=== PATIENT | male | born 1940 | race Caucasian/White ===

== ENCOUNTER 2017-01-05 19:35 | Emergency (ER) | payer MEDICARE, OTHER ==
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
[2017-01-05] MEDS ORDERED: Lidocaine 1% 20 ML MDV ONE (20:05)
[2017-01-05] MEDS ORDERED: Lidocaine 1% 20 ML MDV INJECT ONE (20:06)
[2017-01-05] MEDS ORDERED: Diphtheria,Pertussis(Acell),Tetanus Vaccine 0.5 ML SDV IM ONE (20:29)
[2017-01-05 21:19] VITALS: BP 162/72
== END 2017-01-05 20:45 | disposition home or self-care (01) ==
LOC: KA.ED 19:35
DX: S61.012A Laceration without foreign body of left thumb without damage to nail, initial encounter (principal); X08.8XXA Exposure to other specified smoke, fire and flames, initial encounter; Z79.899 Other long term (current) drug therapy; Z23 Encounter for immunization
CPT/HCPCS: 12002; 73120-LT; 90471; 90715; 99283

== ENCOUNTER 2017-04-17 11:20 | Emergency (ER) | payer MEDICARE, OTHER ==
[2017-04-17 11:41] VITALS: BP 157/58
[2017-04-17] MEDS ORDERED: Lidocaine 2% 5 ML SDV INJECT ONE (11:45)
[2017-04-17] MEDS ORDERED: Meperidine PF 50 MG/ML Syringe IM SCH (11:45)
--- NOTE | 2017-04-17 12:03 | EDM.PDOC ---
ED HPI GENERAL MEDICAL PROBLEM - General Chief Complaint: Upper Extremity Injury/Pain Stated Complaint: FINGER INJURY Time Seen by Provider: 04/17/17 11:30 Source of Information: Reports: Patient - History of Present Illness INITIAL COMMENTS - FREE TEXT/NARRATIVE: 76-year-old male right hand dominant presents emergency room with laceration injuries to the right index and long finger. Patient was working up a [employer] retractor when he got his hand pinched between the PTO shaft and hydraulic lift. He sustained lacerations approximately 4 cm on the lower aspect of the index finger and about 11/2 cm on the dorsal aspect of the index finger and also about 1-1/2 cm laceration over the volar aspect of the long finger. He denies any numbness or tingling in the fingers. He reports he is able to bend and extend the fingers without limitation or loss of motion. He has no other complaints. Onset: Today Onset Date: 04/17/17 Onset Time: 11:00 Duration: Minutes: Location: Reports: Upper Extremity, Right (right index, long fingers) Quality: Reports: Ache Severity: Moderate Improves with: Reports: Medication Worsens with: Reports: None Context: Reports: Trauma Associated Symptoms: Reports: No Other Symptoms Right Hand Pain Score (Numeric/FACES): 8 - Related Data Allergies Allergy/AdvReac Type Severity Reaction Status Date / Time No Known Allergies Allergy Verified 04/17/17 13:25 Home Meds: Home Meds Metoprolol Succinate [Toprol XL] 25 mg PO DAILY 01/05/17 [History] Simvastatin [Zocor] 10 mg PO BEDTIME 01/05/17 [History] Past Medical History Cardiovascular History: Reports: High Cholesterol, Hypertension Social & Family History - Family History Family Medical History: Noncontributory - Tobacco Use Smoking Status *Q: Unknown Ever Smoked Review of Systems - Review of Systems Review Of Systems: ROS reveals no pertinent complaints other than HPI. Musculoskeletal: Reports: Hand Pain Skin: Reports: Other (laceration right index, long fingers) Neurological: Denies: Numbness, Paresthesia ED EXAM, GENERAL - Physical Exam Exam: See Below Exam Limited By: No Limitations General Appearance: Alert, WD/WN, No Apparent Distress Extremities: Other (approximately 5 cm laceration over the volar aspect of the right index finger and a 1-1/2 cm laceration over the dorsal aspect of the index of finger. The tendon of both the flexors and sixth extensor tendons are intact. He has good sensation of the distal tip of the finger. There is no trauma to the DIP PIP or metacarpal joint. Right long finger also shows volar laceration) Neurological: Alert, Oriented, No Motor/Sensory Deficits ED TRAUMA EXTREMITY PROCEDURES - Laceration/Wound Repair Right Finger Lac/Wound Length In cm: 8 Appearance: Subcutaneous, Irregular, Moderately Contaminated Distal NVT: Neuro & Vascular Intact, No Tendon Injury Anesthetic Type: Digital Local Anesthesia - Lidocaine (Xylocaine): 2% Plain Local Anesthetic Volume: Other (20cc) Saline Irrigation (cc's): 40 Exploration/Debridement/Repair: Wound Explored, Minimal Debridement, Multiple Flaps Aligned Closed With: Sutures Suture Size: 4-0 # of Sutures: 11 Suture Type: Nylon Course - Vital Signs Last Recorded V/S: Last Vital Signs Temp 98.2 F 04/17/17 11:38 Pulse 70 04/17/17 11:38 Resp 20 04/17/17 11:38 BP 157/58 H 04/17/17 11:38 Pulse Ox 94 L 04/17/17 11:38 - Orders/Labs/Meds Orders: Active Orders 24 hr Category Date Time Status Hand Comp Min 3V Rt [CR] Stat Exams 04/17/17 11:36 Ordered Meperidine [Demerol] Med 04/17/17 11:45 Active 50 mg IM ONETIME Medication Orders Meperidine HCl (Demerol) 50 mg IM ONETIME BUCK Last Admin: 04/17/17 11:42 Dose: 50 mg Meds: Medications Generic Name Dose Route Start Last Admin Trade Name Freq PRN Reason Stop Dose Admin Meperidine HCl 50 mg 04/17/17 11:45 04/17/17 11:42 Demerol IM 50 mg ONETIME BUCK Administration Discontinued Medications Generic Name Dose Route Start Last Admin Trade Name Freq PRN Reason Stop Dose Admin Lidocaine 20 ml 04/17/17 11:45 04/17/17 11:45 Xylocaine-Mpf 2% INJECT 04/17/17 11:46 20 ml ONETIME ONE Administration - Radiology Interpretation Free Text/Narrative:: right hand 3 views Impression: Negative for fracture Departure - Departure Time of Disposition: 13:30 Disposition: Home, Self-Care 01 Condition: Good Clinical Impression: Laceration of right middle finger Qualifiers: Encounter type: initial encounter Damage to nail status: without damage Foreign body presence: without foreign body Qualified Code(s): S61.212A - Laceration without foreign body of right middle finger without damage to nail, initial encounter - Discharge Information Instructions: Laceration Care, Adult, Crush Injury, Fingers or Toes, Easy-to- Read Referrals: Tye Peoples PA-C [Primary Care Provider] - Forms: ED Department Discharge Additional Instructions: 1, Dressing change on Thursday 2. Suture removal in 12-14 days. 3. No lifting with right hand. 4. Keep dressings clean. 5. Duricef 500mg twice a day for 5 days. 6. Any concerns for possible infection such as fever, increased pain in the hand or fingers, redness, or drainage coming from the incisions you should return to the clinic for further evaluation. - My Orders Last 24 Hours: My Active Orders 04/17/17 11:36 Hand Comp Min 3V Rt [CR] Stat 04/17/17 11:45 Meperidine [Demerol] 50 mg IM ONETIME - Assessment/Plan Last 24 Hours: My Active Orders 04/17/17 11:36 Hand Comp Min 3V Rt [CR] Stat 04/17/17 11:45 Meperidine [Demerol] 50 mg IM ONETIME Assessment:: Lacerations to the right index and long finger without involvement of the nail bed Plan: 1, Dressing change on Thursday 2. Suture removal in 12-14 days. 3. No lifting with right hand. 4. Keep dressings clean. 5. Duricef 500mg twice a day for 5 days. 6. Any concerns for possible infection such as fever, increased pain in the hand or fingers, redness, or drainage coming from the incisions you should return to the clinic for further evaluation.
== END 2017-04-17 13:30 | disposition home or self-care (01) ==
LOC: KA.ED 11:20
DX: S61.212A Laceration without foreign body of right middle finger without damage to nail, initial encounter (principal); S61.210A Laceration without foreign body of right index finger without damage to nail, initial encounter; I10 Essential (primary) hypertension; E78.00 Pure hypercholesterolemia, unspecified; Z79.899 Other long term (current) drug therapy; W23.0XXA Caught, crushed, jammed, or pinched between moving objects, initial encounter
CPT/HCPCS: 12004; 73130; 96372; 99283; J2175; 12044; 99282

== ENCOUNTER 2017-05-02 09:37 | Emergency (ER) | payer MEDICARE, OTHER ==
[2017-05-02 09:58] VITALS: BP 142/62
[2017-05-02 11:16] LABS: CHLORIDE,CL 106 mmol/L (98-115); SODIUM,NA 140 mmol/L (136-145)
--- NOTE | 2017-05-02 11:42 | EDM.PDOC ---
ED HPI GENERAL MEDICAL PROBLEM - General Chief Complaint: Genitourinary Problem Stated Complaint: BLADDER PAINS Time Seen by Provider: 05/02/17 10:00 Source of Information: Reports: Patient History Limitations: Reports: No Limitations - History of Present Illness INITIAL COMMENTS - FREE TEXT/NARRATIVE: Patient presents with burning with urination and achy pain in the groin and perineum for two days. He sometimes has difficulty voiding; worse recently but somewhat for the past 6 months. No fever, abdominal or flank pain. No concern for STDs since he has not been sexually active for a long time. - Related Data Allergies Allergy/AdvReac Type Severity Reaction Status Date / Time No Known Allergies Allergy Verified 05/02/17 09:54 Home Meds: Home Meds Metoprolol Succinate [Toprol XL] 25 mg PO DAILY 01/05/17 [History] Simvastatin [Zocor] 10 mg PO BEDTIME 01/05/17 [History] Finasteride 5 mg PO BEDTIME 05/02/17 [History] Past Medical History Cardiovascular History: Reports: High Cholesterol, Hypertension - Past Surgical History Cardiovascular Surgical History: Reports: None Social & Family History - Family History Family Medical History: Noncontributory - Tobacco Use Smoking Status *Q: Former Smoker Used Tobacco, but Quit: Yes Month Tobacco Last Used: 20 - Caffeine Use Caffeine Use: Reports: Coffee, Soda, Tea - Recreational Drug Use Recreational Drug Use: No ED ROS GENERAL - Review of Systems Review Of Systems: See Below Constitutional: Denies: Fever HEENT: Reports: No Symptoms Respiratory: Denies: Shortness of Breath, Cough Cardiovascular: Denies: Chest Pain GI/Abdominal: Reports: Abdominal Pain (lower into groin only). Denies: Constipation, Diarrhea : Reports: Dysuria, Pain (in groin and perineum), Urinary Retention (sporadic) Musculoskeletal: Reports: No Symptoms Skin: Reports: No Symptoms Neurological: Denies: Confusion, Dizziness, Headache, Seizure, Syncope, Trouble Speaking, Difficulty Walking Psychiatric: Denies: Agitation, Anxiety, Confusion ED EXAM, RENAL/ - Physical Exam Exam: See Below Exam Limited By: No Limitations General Appearance: Alert, WD/WN, No Apparent Distress Eye Exam: Bilateral Eye: EOMI, Normal Inspection, PERRL Ears: Normal External Exam, Hearing Grossly Normal Nose: Normal Inspection, No Blood Throat/Mouth: Normal Inspection, Normal Lips, Normal Voice, No Airway Compromise Head: Atraumatic, Normocephalic Neck: Full Range of Motion Respiratory/Chest: No Respiratory Distress, Lungs Clear, Normal Breath Sounds Cardiovascular: Regular Rate, Rhythm, No Murmur GI/Abdominal: Normal Bowel Sounds, Soft, Non-Tender, No Organomegaly, No Distention (Male) Exam: No Hernia, Normal Inspection, Normal Prostate. No: Circumcised , Penile Lesions, Rash, Scrotal Swelling, Scrotum Tenderness (L), Scrotum Tenderness (R), Suprapubic Fullness, Testicular Mass, Testicular Tenderness (L) , Testicular Tenderness (R), Urethral Discharge Rectal (Males) Exam: Normal Exam, Normal Rectal Tone, Prostate Normal. No: Black Stool, Bloody Stool, BPH (not appreciably), Fecal Impaction, Hemorrhoids, Mass, Perirectal Abscess, Prostate Nodule, Rectal Fissure, Tenderness Back Exam: No: CVA Tenderness (L), CVA Tenderness (R) Extremities: Normal Inspection, Normal Range of Motion Neurological: Alert, Oriented, Normal Cognition, No Motor/Sensory Deficits Psychiatric: Normal Affect, Normal Mood Skin Exam: Warm, Dry, Intact, Normal Color, No Rash Course - Vital Signs Last Recorded V/S: Last Vital Signs Temp Pulse 61 05/02/17 09:56 Resp 16 05/02/17 09:56 BP 142/62 H 05/02/17 09:56 Pulse Ox 95 05/02/17 09:56 - Orders/Labs/Meds Orders: Active Orders 24 hr Category Date Time Status CULTURE URINE [RM] Stat Lab 05/02/17 10:39 Ordered Labs: Laboratory Tests 05/02/17 05/02/17 05/02/17 Range/Units 10:24 10:45 10:45 WBC 9.8 (5.0-10.0) 10^3/uL RBC 5.35 (4.50-6.00) 10^6/uL Hgb 15.9 (13.0-17.0) g/dL Hct 48.2 (40.0-52.0) % MCV 90.0 (82.0-92.0) fL MCH 29.7 (27.0-31.0) pg MCHC 33.0 (32.0-36.0) g/dL RDW 12.7 (11.5-14.5) % Plt Count 201 (150-300) 10^3/uL MPV 10.0 (7.4-10.4) fL Neut % (Auto) 77.8 H (50.0-70.0) % Lymph % (Auto) 14.2 L (20.0-40.0) % [place] % (Auto) 6.4 (2.0-8.0) % Eos % (Auto) 0.8 L (1.0-3.0) % Baso % (Auto) 0.8 (0.0-1.0) % Neut # (Auto) 7.6 H (2.5-7.0) 10^3/uL Lymph # (Auto) 1.4 (1.0-4.0) 10^3/uL [place] # (Auto) 0.6 (0.1-0.8) 10^3/uL Eos # (Auto) 0.1 (0.1-0.3) 10^3/uL Baso # (Auto) 0.1 (0.0-0.1) 10^3/uL Sodium 140 (136-145) mmol/L Potassium 4.2 (3.3-5.3) mmol/L Chloride 106 (98-115) mmol/L Carbon Dioxide 24.6 (21.0-32.0) mmol/L BUN 22 (6-25) mg/dL Creatinine 0.96 (0.51-1.17) mg/dL Est Cr Clr Drug Dosing TNP Estimated GFR (MDRD) > 60 mL/min Glucose 119 H (70-110) mg/dL Calcium 8.8 (8.7-10.3) mg/dL Specimen Type Urinvoid Urine Color Yellow (YELLOW) Urine Appearance Clear (CLEAR) Urine pH 7.0 (5.0-9.0) Ur Specific [place] 1.015 (1.005-1.030) Urine Protein Negative (NEGATIVE) mg/dL Urine Glucose (UA) Negative (NEGATIVE) mg/dL Urine Ketones Negative (NEGATIVE) mg/dL Urine Occult Blood Negative (NEGATIVE) Urine Nitrite Negative (NEGATIVE) Urine Bilirubin Negative (NEGATIVE) Urine Urobilinogen 0.2 (0.2-1.0) E.U./dL Ur Leukocyte Esterase Negative (NEGATIVE) Urine RBC 0-5 /HPF Urine WBC 0-5 /HPF Ur Epithelial Cells Rare /LPF Urine Bacteria Occasional (NONE TO FEW) /HPF Urine Mucus Moderate H (NEGATIVE) /LPF - Re-Assessments/Exams Free Text/Narrative Re-Assessment/Exam: 05/02/17 11:48 UA is suggestive of a UTI but not conclusive. The patient's symptoms are suggestive of prostatitis but not evident on exam. Discussed findings and treatment plan with patient. Will treat with Levaquin for a week. Before the week is up I directed him to follow up with his PCP for evaluation and determination if he needs to be on a 6-week course of prostatitis treatment and PSA testing which may not be covered in ER. Pt discharged in stable condition. Departure - Departure Time of Disposition: 11:42 Disposition: Home, Self-Care 01 Condition: Good Clinical Impression: UTI (urinary tract infection) Qualifiers: Urinary tract infection type: acute cystitis Hematuria presence: without hematuria Qualified Code(s): N30.00 - Acute cystitis without hematuria - Discharge Information Instructions: Urinary Tract Infection, Adult, [id number], Prostatitis, Easy- to-Read Forms: ED Department Discharge Additional Instructions: 1. TAke the antibiotic as directed. 2. Follow up with your PCP in 4-5 days for recheck and evaluation. - My Orders Last 24 Hours: My Active Orders 05/02/17 10:39 CULTURE URINE [RM] Stat - Assessment/Plan Last 24 Hours: My Active Orders 05/02/17 10:39 CULTURE URINE [RM] Stat
== END 2017-05-02 11:50 | disposition home or self-care (01) ==
LOC: KA.ED 09:37
DX: N30.00 Acute cystitis without hematuria (principal); E78.00 Pure hypercholesterolemia, unspecified; I10 Essential (primary) hypertension; Z87.891 Personal history of nicotine dependence
CPT/HCPCS: 36415; 80048; 81001; 85025; 87086; 99283

== ENCOUNTER 2019-01-09 15:08 | Observation (INO) | payer MEDICARE, OTHER ==
[2019-01-09] MEDS ORDERED: Metoprolol Tartrate 5 MG/5 ML SDV IVPUSH ONE (15:52)
[2019-01-09 16:20] LABS: ANION GAP 17.5 mmol/L (5-15); CHLORIDE,CL 108 mmol/L (98-115); SODIUM,NA 145 mmol/L (136-145)
[2019-01-09] MEDS ORDERED: Aspirin 81 MG Tab.Chew PO ONE ×2 (16:25→16:36)
[2019-01-09] MEDS ORDERED: Acetaminophen 325 MG Tab PO PRN (16:31)
[2019-01-09] MEDS ORDERED: Non-Formulary Medication 1 Each (Rivaroxaban [Xarelto] 20 MG) PO SCH (16:45)
--- NOTE | 2019-01-09 16:47 | EDM.PDOC ---
ED HPI GENERAL MEDICAL PROBLEM - General Chief Complaint: Chest Pain Stated Complaint: CHEST PAIN/FAST HEARTRATE Time Seen by Provider: 01/09/19 15:25 Source of Information: Reports: Patient History Limitations: Reports: No Limitations - History of Present Illness INITIAL COMMENTS - FREE TEXT/NARRATIVE: 78-year-old male presents emergency room with complaints of palpations. 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 This was approximately at 2:00. He denies any specific chest pain, no shortness of breath, no abdominal pain, no headaches, no associated nausea or vomiting. He took his pulse and felt his heart was racing. Patient immediately states that he took stopped taking Xarelto 20 mg daily about 5 days ago because this was causing him bruising. He thought taking an 81 mg aspirin would be enough. He is placed on the Xarelto for rate control for his atrial fibrillation. He is a patient of Dr. Jack. His assessed by the nurse and an EKG was ordered showing he was in atrial fibrillation with RVR rate of 144 bpm. Onset: Today, Sudden Onset Date: 01/09/19 Onset Time: 13:00 Duration: Hour(s):, Constant Location: Reports: Chest Severity: Moderate Improves with: Reports: None Worsens with: Reports: None Associated Symptoms: Denies: Chest Pain, Cough, Diaphoresis, Headaches, Nausea/ Vomiting, Shortness of Breath, Syncope, Weakness - Related Data Allergies Allergy/AdvReac Type Severity Reaction Status Date / Time No Known Allergies Allergy Verified 01/09/19 15:35 Home Meds: Home Meds Metoprolol Succinate [Toprol XL] 25 mg PO DAILY 01/05/17 [History] Simvastatin [Zocor] 10 mg PO BEDTIME 01/05/17 [History] Finasteride 5 mg PO BEDTIME 05/02/17 [History] Aspirin [Halfprin] 81 mg PO DAILY 01/09/19 [History] Rivaroxaban [Xarelto] 20 mg PO DAILY 01/09/19 [History] Tamsulosin HCl [Flomax] 0.4 mg PO DAILY 01/09/19 [History] Past Medical History HEENT History: Reports: Impaired Vision Cardiovascular History: Reports: Afib, High Cholesterol, Hypertension Respiratory History: Reports: Other (See Below) Other Respiratory History: nodule left lung Gastrointestinal History: Reports: GERD Genitourinary History: Reports: BPH Musculoskeletal History: Reports: Arthritis Neurological History: Reports: None Hematologic History: Reports: Anticoagulation Therapy, Blood Transfusion(s) Oncologic (Cancer) History: Reports: Other (See Below) Other Oncologic History: skin lesion removal - Past Surgical History HEENT Surgical History: Reports: Tonsillectomy Cardiovascular Surgical History: Reports: None GI Surgical History: Reports: Appendectomy, Colonoscopy Male Surgical History: Reports: None Musculoskeletal Surgical History: Reports: Hip Replacement Social & Family History - Family History Family Medical History: Noncontributory - Tobacco Use Smoking Status *Q: Former Smoker Years of Tobacco use: 25 Packs/Tins Daily: 1 Used Tobacco, but Quit: Yes Month/Year Tobacco Last Used: 1992 Second Hand Smoke Exposure: No - Caffeine Use Caffeine Use: Reports: Tea - Recreational Drug Use Recreational Drug Use: No ED ROS GENERAL - Review of Systems Review Of Systems: ROS reveals no pertinent complaints other than HPI. ED EXAM, GENERAL - Physical Exam Exam: See Below Exam Limited By: No Limitations General Appearance: Alert, WD/WN, No Apparent Distress Eye Exam: Bilateral Eye: EOMI Ears: Hearing Grossly Normal Nose: Normal Inspection Throat/Mouth: Normal Inspection, Normal Voice Head: Atraumatic, Normocephalic Neck: Normal Inspection, Supple, Non-Tender Respiratory/Chest: No Respiratory Distress, Lungs Clear Cardiovascular: No JVD, Tachycardia Peripheral Pulses: 2+: Radial (L), Radial (R) GI/Abdominal: Soft, Non-Tender Back Exam: Normal Inspection Extremities: Normal Inspection, No Pedal Edema Neurological: Alert, Oriented, Normal Cognition, Normal Gait, No Motor/Sensory Deficits Psychiatric: Normal Affect, Normal Mood Skin Exam: Warm, Dry, Intact, Normal Color, No Rash. No: Diaphoretic Lymphatic: No Adenopathy EKG INTERPRETATION EKG Date: 01/09/19 Time: 15:14 Rhythm: Other (A-fib w RVR) [place]: LAD-Left [place] Deviation P-Wave: Absent QRS: RBBB ST-T: Normal QT: Normal Comparison: NA - No Prior EKG EKG Interpretation Comments: Atrial fibrillation with rapid ventricular response [place] deviation Right bundle branch block abnormal ECG Course - Vital Signs Last Recorded V/S: Last Vital Signs Temp 98.2 F 01/09/19 15:11 Pulse 113 H 01/09/19 16:17 Resp 15 01/09/19 16:11 BP 100/69 01/09/19 16:17 Pulse Ox 95 01/09/19 16:11 - Orders/Labs/Meds Orders: Active Orders 24 hr Category Date Time Status Patient Status [ADT] Routine ADT 01/09/19 16:32 Ordered Antiembolic Devices [RC] .Routine Care 01/09/19 16:35 Ordered EKG Documentation Completion [RC] ASDIRECTED Care 01/09/19 15:35 Active Height and Weight [RC] UPON Care 01/09/19 16:31 Ordered Intake and Output [RC] QSHIFT Care 01/09/19 16:34 Ordered Oxygen Therapy [RC] PRN Care 01/09/19 16:34 Ordered Pulse Oximetry [RC] PRN Care 01/09/19 16:34 Ordered Up With Assistance [RC] ASDIRECTED Care 01/09/19 16:31 Ordered VTE/DVT Education [RC] PER UNIT ROUTINE Care 01/09/19 16:35 Ordered Vital Signs [RC] Q4H Care 01/09/19 16:32 Ordered TROPONIN I [CHEM] Timed Lab 01/09/19 18:00 Ordered Acetaminophen [Tylenol] Med 01/09/19 16:31 Ordered 650 mg PO Q4H PRN Finasteride [Proscar] Med 01/09/19 21:00 Ordered 5 mg PO BEDTIME Rivaroxaban [Xarelto] Med 01/09/19 16:45 Ordered 20 mg PO DAILY Simvastatin [Zocor] Med 01/09/19 21:00 Ordered 10 mg PO BEDTIME Tamsulosin [Flomax] Med 01/10/19 09:00 Ordered 0.4 mg PO DAILY Antiembolic Hose [OM.PC] Per Unit Routine Oth 01/09/19 16:35 Ordered DVT/VTE Prophylaxis Reflex [OM.PC] Routine Oth 01/09/19 16:31 Ordered Sequential Compression Device [OM.PC] Per Unit Routine Oth 01/09/19 16:35 Ordered EKG 12 Lead [EK] Routine Ther 01/09/19 15:34 Ordered Medication Orders Acetaminophen (Tylenol) 650 mg PO Q4H PRN PRN Reason: analgesia/fever Finasteride (Proscar) 5 mg PO BEDTIME BUCK Non-Formulary Medication (Rivaroxaban [Xarelto]) 20 mg PO DAILY BUCK Simvastatin (Zocor) 10 mg PO BEDTIME BUCK Tamsulosin HCl (Flomax) 0.4 mg PO DAILY BUCK Labs: Laboratory Tests 01/09/19 01/09/19 Range/Units 15:40 15:40 WBC 13.15 H (5.00-10.00) 10^3/uL RBC 5.09 (4.50-6.00) 10^6/uL Hgb 15.8 (13.0-17.0) g/dL Hct 46.2 (40.0-52.0) % MCV 90.8 (82.0-92.0) fL MCH 31.0 (27.0-31.0) pg MCHC 34.2 (32.0-36.0) g/dL RDW 13.3 (11.5-14.5) % Plt Count 194 (150-400) 10^3/uL MPV 12.2 H (7.4-10.4) fL Immature Gran % (Auto) 0.2 (0.0-5.0) % Neut % (Auto) 81.4 H (50.0-70.0) % Lymph % (Auto) 11.3 L (20.0-40.0) % [place]ven % (Auto) 6.5 (2.0-8.0) % Eos % (Auto) 0.2 L (1.0-3.0) % Baso % (Auto) 0.4 (0.0-1.0) % Immature Gran # (Auto) 0.02 (0.00-0.50) 10^3/uL Neut # (Auto) 10.71 H (2.50-7.00) 10^3/uL Lymph # (Auto) 1.49 (1.00-4.00) 10^3/uL [place]ven # (Auto) 0.85 H (0.10-0.80) 10^3/uL Eos # (Auto) 0.03 L (0.10-0.30) 10^3/uL Baso # (Auto) 0.05 (0.00-0.10) 10^3/uL Sodium 145 (136-145) mmol/L Potassium 4.3 (3.3-5.3) mmol/L Chloride 108 (98-115) mmol/L Carbon Dioxide 23.8 (21.0-32.0) mmol/L Anion Gap 17.5 H (5-15) mmol/L BUN 21 (6-25) mg/dL Creatinine 1.07 (0.51-1.17) mg/dL Est Cr Clr Drug Dosing 63.46 mL/min Estimated GFR (MDRD) > 60 mL/min Glucose 116 H (75 - 99) mg/dL Calcium 9.3 (8.7-10.3) mg/dL Troponin I 0.08 H* (0.00-0.070) ng/mL Meds: Medications Generic Name Dose Route Start Last Admin Trade Name Freq PRN Reason Stop Dose Admin Acetaminophen 650 mg 01/09/19 16:31 Tylenol PO Q4H PRN analgesia/fever Finasteride 5 mg 01/09/19 21:00 Proscar PO BEDTIME BUCK Non-Formulary Medication 20 mg 01/09/19 16:45 Rivaroxaban [Xarelto] PO DAILY BUCK Simvastatin 10 mg 01/09/19 21:00 Zocor PO BEDTIME BUCK Tamsulosin HCl 0.4 mg 01/10/19 09:00 Flomax PO DAILY BUCK Discontinued Medications Generic Name Dose Route Start Last Admin Trade Name Freq PRN Reason Stop Dose Admin Aspirin 324 mg 01/09/19 16:25 01/09/19 16:39 Aspirin PO 01/09/19 16:26 324 mg ONETIME ONE Administration Aspirin 324 mg 01/09/19 16:36 Aspirin PO 01/09/19 16:37 ONETIME ONE Metoprolol Tartrate 5 mg 01/09/19 15:52 01/09/19 16:02 Lopressor IVPUSH 01/09/19 15:53 5 mg ONETIME ONE Administration - Re-Assessments/Exams Free Text/Narrative Re-Assessment/Exam: 01/09/19 16:59 Patient was given 5 mg of metoprolol IV. Rate improved to 103-110 Departure - Departure Time of Disposition: 16:57 Disposition: Refer to Observation Condition: Good Clinical Impression: Atrial fibrillation with RVR, Troponin level elevated Referrals: Imani Jack MD [Primary Care Provider] - - My Orders Last 24 Hours: My Active Orders 01/09/19 15:34 EKG 12 Lead [EK] Routine 01/09/19 15:35 EKG Documentation Completion [RC] ASDIRECTED 01/09/19 16:31 Height and Weight [RC] UPON Up With Assistance [RC] ASDIRECTED Acetaminophen [Tylenol] 650 mg PO Q4H PRN DVT/VTE Prophylaxis Reflex [OM.PC] Routine 01/09/19 16:32 Patient Status [ADT] Routine Vital Signs [RC] Q4H 01/09/19 16:34 Intake and Output [RC] QSHIFT Oxygen Therapy [RC] PRN Pulse Oximetry [RC] PRN 01/09/19 16:35 Antiembolic Devices [RC] .Routine VTE/DVT Education [RC] PER UNIT ROUTINE Antiembolic Hose [OM.PC] Per Unit Routine Sequential Compression Device [OM.PC] Per Unit Routine 01/09/19 16:45 Rivaroxaban [Xarelto] 20 mg PO DAILY 01/09/19 18:00 TROPONIN I [CHEM] Timed 01/09/19 21:00 Finasteride [Proscar] 5 mg PO BEDTIME Simvastatin [Zocor] 10 mg PO BEDTIME 01/10/19 09:00 Tamsulosin [Flomax] 0.4 mg PO DAILY - Assessment/Plan Last 24 Hours: My Active Orders 01/09/19 15:34 EKG 12 Lead [EK] Routine 01/09/19 15:35 EKG Documentation Completion [RC] ASDIRECTED 01/09/19 16:31 Height and Weight [RC] UPON Up With Assistance [RC] ASDIRECTED Acetaminophen [Tylenol] 650 mg PO Q4H PRN DVT/VTE Prophylaxis Reflex [OM.PC] Routine 01/09/19 16:32 Patient Status [ADT] Routine Vital Signs [RC] Q4H 01/09/19 16:34 Intake and Output [RC] QSHIFT Oxygen Therapy [RC] PRN Pulse Oximetry [RC] PRN 01/09/19 16:35 Antiembolic Devices [RC] .Routine VTE/DVT Education [RC] PER UNIT ROUTINE Antiembolic Hose [OM.PC] Per Unit Routine Sequential Compression Device [OM.PC] Per Unit Routine 01/09/19 16:45 Rivaroxaban [Xarelto] 20 mg PO DAILY 01/09/19 18:00 TROPONIN I [CHEM] Timed 01/09/19 21:00 Finasteride [Proscar] 5 mg PO BEDTIME Simvastatin [Zocor] 10 mg PO BEDTIME 01/10/19 09:00 Tamsulosin [Flomax] 0.4 mg PO DAILY Assessment:: 1. Atrial fibrillation with RVR 2. Mild troponin elevation 3. Noncompliant with anticoagulation therapy Plan: 1. Patient's rate improved to 103-110 bpm with 5 mg of metoprolol. We'll place him in observation for rate control and restart him on his anticoagulation. He was on Xarelto 20 mg daily. With this troponin slightly elevated at 0.08 we will plan on repeating his troponin in 2 hours and run serial troponins. I discussed this with [place] provider Tye TANNER who will take over the patient's care in the hospital. We'll place him on telemetry.
[2019-01-09] MEDS ORDERED: Labetalol 100 MG/20 ML MDV IVPUSH PRN (18:18)
[2019-01-09] MEDS ORDERED: Diltiazem 25 MG/5 ML SDV IVPUSH ONE (18:18)
[2019-01-09] MEDS ORDERED: Lidocaine 2% 100 MG/5 ML Syringe IVPUSH PRN (18:24)
[2019-01-09] MEDS ORDERED: EPINEPHrine 1:10,000 1 MG/10 ML Syringe IVPUSH PRN (18:24)
[2019-01-09] MEDS ORDERED: Nitroglycerin 0.4 MG Tab.SL SL PRN (18:24)
[2019-01-09] MEDS ORDERED: Atropine 0.1 MG/ML 10 ML Syringe IVPUSH PRN (18:24)
[2019-01-09] MEDS ORDERED: Rivaroxaban 10 MG Tab PO SCH (18:30)
[2019-01-09] MEDS: Metoprolol Tartrate 25 MG Tab PO ONE ×2 (18:54→20:10)
[2019-01-09] MEDS ORDERED: Diltiazem 25 MG/5 ML SDV IVPUSH PRN (19:07)
[2019-01-09] MEDS: Metoprolol Tartrate 25 MG Tab PO SCH ×2 (19:48→20:11)
[2019-01-09] MEDS ORDERED: Finasteride 5 MG Tab PO SCH (21:00)
[2019-01-09] MEDS ORDERED: Simvastatin 10 MG Tab PO SCH (21:00)
[2019-01-09] MEDS ORDERED: Melatonin 3 MG Tab PO PRN (21:00)
[2019-01-10] MEDS ORDERED: Tamsulosin 0.4 MG Cap.ER PO SCH (09:00)
[2019-01-10] MEDS ORDERED: Metoprolol Succinate 25 MG Tab.ER PO SCH (09:00)
[2019-01-10] MEDS: Metoprolol Tartrate 25 MG Tab PO SCH (09:56)
[2019-01-10] MEDS ORDERED: Metoprolol Tartrate 25 MG Tab PO ONE (10:42)
--- NOTE | 2019-01-10 10:50 | HP ---
HISTORY OF PRESENT ILLNESS: This is a 78-year-old gentleman, who has a history of recent atrial fibrillation. About 2 months ago, he went into atrial fibrillation. He was put on Xarelto at that time. The patient states that he did not like all the bruising that he was getting from the Xarelto, so he stopped the Xarelto about 6 days ago and started taking a baby aspirin daily instead. 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 He denied any chest pain or heart palpitations. He states that he just felt a little off. He denied any dizziness, so he presented to the emergency room. He was found to be in atrial fibrillation with a rapid ventricular response in the 160s. The patient was given metoprolol IV in the ER, which brought his rate down into the 140s. He was also given Xarelto 20 mg p.o. in the ER. He was admitted at that time. PAST MEDICAL HISTORY: The patient does have a past medical history of atrial fibrillation, BPH, insomnia, hypertension, and hyperlipidemia. MEDICATIONS: Medications that he was taking at home. The patient was taking metoprolol tartrate I believe 50 mg daily, Flomax 0.4 mg daily, Zocor 10 mg daily. He had stopped the Xarelto. He was taking baby aspirin 81 mg daily and Proscar 5 mg daily. ALLERGIES: No known drug allergies. SOCIAL/PERSONAL HISTORY: The patient denies any alcohol or tobacco use. 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 REVIEW OF SYSTEMS: CONSTITUTIONAL: The patient just feels a little fatigued. EYES: No recent visual changes. ENT: No sinus congestion or hoarseness. CARDIOVASCULAR: No chest pain or palpitations. RESPIRATORY: No cough. No shortness of breath. GI: No vomiting, diarrhea or melena. : No dysuria or hematuria. MUSCULOSKELETAL: No new bone pain or joint swelling. INTEGUMENTARY: No rash or pruritus. NEUROLOGIC/PSYCHIATRIC: No recent headache or focal weakness. No depressive symptoms. ENDOCRINE: No heat or cold intolerances or polydipsia. HEMATOLOGIC/LYMPHATIC: No excessive bruising or lymph node swelling. ALLERGIC/IMMUNOLOGIC: No hives or recurrent infections. PHYSICAL EXAMINATION: GENERAL: This is a white elderly male, in no acute distress. VITAL SIGNS: Heart rate is 145 beats per minute. Temperature is 98.2, blood pressure is 122/70, respiratory rate 16, oxygen saturation on room air is 95%. HEENT: Head is normocephalic. EOMs are intact. Pupils are equal, round, and react to light and accommodation. Bilateral tympanic membranes are intact. Nose is clear. No pharyngeal erythema noted. NECK: Supple. No JVD. Trachea midline. LUNGS: Sounds are clear throughout lung blum. CARDIAC: Heart rate is tachycardic in the 140s-150s. Irregularly irregular consistent with atrial fibrillation. ABDOMEN: Soft, nontender, nondistended. Bowel sounds present x4. EXTREMITIES: No joint effusion noted. Full range of motion. NEUROLOGIC: Grossly intact. DIAGNOSTIC TESTS: Diagnostic tests that were performed in ER. EKG shows atrial fibrillation with rapid ventricular response at 144 beats per minute. He does have a right bundle-branch block. LABORATORY DATA: Lab work that was obtained in the emergency room. CBC showed a white count elevated at 13.1, hemoglobin 15.8, platelet count at 194. Chemistry panel was unremarkable. Troponin that was obtained in the emergency room was slightly elevated at 0.08. IMPRESSION/PLAN: 1. Atrial fibrillation with rapid ventricular response. Plan: I did give the patient 10 mg of Cardizem IV shortly after admission, I had seen his heart rate was at around 145 BPM. His heart rate did come down somewhat after the Cardizem was given. We had the nursing staff give the patient 37.5 mg of metoprolol tartrate p.o. yet this evening. We will continue with telemetry. The patient will have p.r.n. dose of Cardizem 10 mg IV every hour that he can have for a heart rate greater than 110 sustained as long as his systolic blood pressure is greater than 110. Xarelto anticoagulation therapy was restarted already in the emergency room. We will do serial troponins at 7 p.m. tonight and then again at midnight, also in the morning. We will continue with telemetry and keep a close eye. 2. Leukocytosis. Plan: The patient's white count is elevated in the emergency room at 13.1. I am going to obtain urinalysis to see if any source of urinary tract infection. He has no cough or shortness of breath. No chest x-ray ordered at this time and we will repeat a CBC in the morning. 3. History of benign prostatic hyperplasia. Plan: We will continue with Proscar 5 mg at bedtime along with Flomax 0.4 mg daily. 4. History of hyperlipidemia. Plan: Continue with Zocor 10 mg daily. 5. History of insomnia. Plan: Continue with melatonin 3 mg at bedtime as needed. Dr. Tori Burks notified of Admission within 4 hours. /[id number]/MODL MTDD
[2019-01-10 12:32] VITALS: BP 118/57
--- NOTE | 2019-01-10 15:25 | DISCH ---
ADMITTING DIAGNOSIS: Atrial fibrillation with rapid ventricular response. FINAL DIAGNOSIS: Atrial fibrillation with controlled rate, resumed anticoagulation therapy. BRIEF HISTORY AND ESSENTIAL PHYSICAL FINDINGS: This is a very pleasant 78-year- old gentleman who was recently diagnosed with atrial fibrillation approximately two months ago. He was started on Xarelto at that time. The patient had stopped his Xarelto also about six days ago because it was causing him too much bruising. He did start taking a baby aspirin 81 mg daily instead. 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 He denies any chest pain or heart palpitation. He denies any dizziness. He just did not feel right. He felt fatigued, so he came to the emergency room for further evaluation. At that time, he was found to be in atrial fibrillation with a rate in the 160s. The patient was admitted at that time, given beta blockers and calcium channel blockers IV. SIGNIFICANT LABS XRAYS AND CONSULTATION FINDINGS: The patient's lab work did show troponin to be elevated on admission at 0.08. Repeat troponin 6 hours later continued to be elevated at 0.10. It was repeated again at midnight and had come down slightly to 0.09. Repeat this morning was in normal range at 0.07. TSH was also obtained this morning, which was in normal range at 1.6. The patient's CBC that was repeated this morning showed a white count within normal range at 9.5, hemoglobin 14.9, platelet count at 198, otherwise unremarkable. The patient's chemistry panel that was obtained yesterday was also unremarkable. Urinalysis that was obtained upon admission was unremarkable. Also, the patient had no x-rays, but his EKG in the emergency room did show atrial fibrillation with rapid ventricular response at 144 beats per minute with right bundle-branch block. COURSE IN HOSPITAL WITH COMPLICATIONS IF ANY: The patient was admitted. He was given some Lopressor IV in the emergency room which had brought his rate down 140s after admission. I had given him a 10 mg Cardizem IV and also brought his rate down to about the 110s to 120s. He was given 37.5 mg of metoprolol tartrate orally. Soon after that, his rate had come down to 60s and 70s. The patient denied any shortness of breath or chest pain throughout the hospital stay. He says that he feels much better. CONDITION TREATMENT AND FINAL DISPOSITION ON DISCHARGE AND PROGNOSIS: Condition is stable. Final disposition, he will go home with his . IMPRESSION AND PLAN: 1. Atrial fibrillation with controlled rate at this time. I am going to send the patient home on Xarelto 20 mg daily. I am going to send him home on metoprolol succinate 50 mg daily. The patient will follow up in the clinic on Thursday with Dr. Jack for further assessment if he needs any further scans or need repeat cardiac echo at that time. 2. History of BPH. Plan: Continue with Proscar 5 mg at bedtime along with Flomax 0.4 mg daily. 3. History of hyperlipidemia. Plan: Continue with Zocor 10 mg daily. 4. History of insomnia. Plan: Continue with melatonin 3 mg at bedtime as needed for sleep. /[id number]/MODL
[2019-01-10] MEDS ORDERED: Rivaroxaban 10 MG Tab PO ONE (18:20)
== END 2019-01-10 12:26 | disposition home or self-care (01) ==
LOC: KA.ED 15:08 → KA.MS 16:31
PROVIDERS: ADMIT Physician Assistant; ATTEND Physician Assistant
DX: I48.2 Chronic atrial fibrillation (principal); I45.10 Unspecified right bundle-branch block; D72.829 Elevated white blood cell count, unspecified; E78.5 Hyperlipidemia, unspecified; G47.00 Insomnia, unspecified; I10 Essential (primary) hypertension; N40.0 Benign prostatic hyperplasia without lower urinary tract symptoms; Z79.01 Long term (current) use of anticoagulants; Z79.899 Other long term (current) drug therapy
CPT/HCPCS: 36415; 80048; 81001; 84443; 84484; 85025; 93005; 96374; 96375; 99285-25; A9270-GY; G0378; J3490

== ENCOUNTER 2020-02-25 19:57 | Emergency (ER) | payer MEDICARE, OTHER ==
[2020-02-25 20:04] VITALS: BP 175/53; PULSE 62
--- NOTE | 2020-02-25 20:12 | EDM.PDOC ---
ED HPI GENERAL MEDICAL PROBLEM - General Chief Complaint: Abdominal Pain Stated Complaint: LEFT SIDE PAIN Time Seen by Provider: 02/25/20 20:12 Source of Information: Reports: Patient History Limitations: Reports: No Limitations - History of Present Illness INITIAL COMMENTS - FREE TEXT/NARRATIVE: Presents with left-sided renal colic. States he has past history of renal stones were seen on abdominal CT. Also passed a stone roughly 20 years ago. Has been fighting intermittent constipation using stool softeners and laxatives as needed. Last night both him and his ate watermelon, both developed some abdominal discomfort which has resolved. He stated his abdominal comfort improved as his flank discomfort worsened radiating into his left groin last evening in this morning. Since then it is improved but has been very difficult to find comfortable positioning. Denies any pandemic CoVid 19 issues, and denies symptoms thereof. Onset Date: 02/24/20 Onset Time: 18:00 Duration: Hour(s): Location: Reports: Back, Pelvis Quality: Reports: Ache, Pressure Severity: Moderate Improves with: Reports: Movement Worsens with: Reports: Movement Associated Symptoms: Reports: No Other Symptoms Left Flank Pain Score (Numeric/FACES): 6 - Related Data Allergies Allergy/AdvReac Type Severity Reaction Status Date / Time No Known Drug Allergies Allergy Cannot Verified 02/25/20 20:03 Remember Home Meds: Home Meds Simvastatin [Zocor] 10 mg PO BEDTIME 01/05/17 [History] Finasteride 5 mg PO BEDTIME 05/02/17 [History] Rivaroxaban [Xarelto] 20 mg PO DAILY@1800 01/09/19 [History] Tamsulosin HCl [Flomax] 0.4 mg PO BEDTIME 01/09/19 [History] Metoprolol Succinate 50 mg PO DAILY #10 tab.er.24h 01/10/19 [Rx] OLANZapine [Olanzapine] 5 mg PO BEDTIME 02/25/20 [History] Omeprazole 20 mg PO DAILY PRN 02/25/20 [History] Past Medical History HEENT History: Reports: Impaired Vision Cardiovascular History: Reports: Afib, High Cholesterol, Hypertension Respiratory History: Reports: Other (See Below) Other Respiratory History: nodule left lung Gastrointestinal History: Reports: GERD Genitourinary History: Reports: BPH, Renal Calculus Musculoskeletal History: Reports: Arthritis Neurological History: Reports: None Hematologic History: Reports: Anticoagulation Therapy, Blood Transfusion(s) Oncologic (Cancer) History: Reports: Other (See Below) Other Oncologic History: skin lesion removal - Past Surgical History HEENT Surgical History: Reports: Tonsillectomy Cardiovascular Surgical History: Reports: None GI Surgical History: Reports: Appendectomy, Colonoscopy Male Surgical History: Reports: None Musculoskeletal Surgical History: Reports: Hip Replacement - Past Imaging History Past Imaging History: Reports: CAT Scan, Xray Social & Family History - Family History Family Medical History: Noncontributory - Caffeine Use Caffeine Use: Reports: Tea ED ROS GENERAL - Review of Systems Review Of Systems: See Below Constitutional: Reports: No Symptoms HEENT: Reports: No Symptoms Respiratory: Reports: No Symptoms Cardiovascular: Reports: No Symptoms Endocrine: Reports: No Symptoms GI/Abdominal: Reports: Abdominal Pain, Constipation : Reports: Frequency Musculoskeletal: Reports: Back Pain Skin: Reports: No Symptoms Neurological: Reports: No Symptoms Psychiatric: Reports: No Symptoms Hematologic/Lymphatic: Reports: No Symptoms Immunologic: Reports: No Symptoms ED EXAM, GENERAL - Physical Exam Exam: See Below General Appearance: Alert, WD/WN, Mild Distress Ears: Normal External Exam, Normal Canal, Hearing Grossly Normal Nose: Normal Inspection, Normal Mucosa, No Blood Throat/Mouth: Normal Inspection, Normal Lips, Normal Teeth, Normal Gums, Normal Oropharynx, Normal Voice, No Airway Compromise Head: Atraumatic, Normocephalic Neck: Normal Inspection, Supple, Non-Tender, Full Range of Motion Respiratory/Chest: No Respiratory Distress, Lungs Clear, Normal Breath Sounds, No Accessory Muscle Use, Chest Non-Tender Cardiovascular: Normal Peripheral Pulses, Regular Rate, Rhythm, No Edema, No Gallop, No JVD, No Murmur, No Rub GI/Abdominal: Normal Bowel Sounds, Soft, Non-Tender, No Organomegaly, No Distention, No Mass, Other (Flank pain) (Male) Exam: Deferred Rectal (Males) Exam: Deferred Back Exam: CVA Tenderness (L) Extremities: Normal Range of Motion Neurological: Alert, Oriented, CN II-XII Intact, Normal Cognition, Normal Gait, Normal Reflexes, No Motor/Sensory Deficits Psychiatric: Normal Affect, Normal Mood Skin Exam: Warm, Dry, Intact, Normal Color, No Rash Lymphatic: No Adenopathy Course - Vital Signs Last Recorded V/S: Last Vital Signs Temp 36.3 C 02/25/20 20:00 Pulse 62 02/25/20 20:00 Resp 18 02/25/20 20:00 BP 175/53 H 02/25/20 20:00 Pulse Ox 97 02/25/20 20:00 - Orders/Labs/Meds Orders: Active Orders 24 hr Category Date Time Status Peripheral IV Care [RC] . DIRECTED Care 02/25/20 20:19 Active Abdomen Pelvis wo Cont [CT] Stat Exams 02/25/20 20:17 Ordered Sodium Chloride 0.9% [Normal Saline] 1,000 ml Med 02/25/20 20:30 Active IV ASDIRECTED Sodium Chloride 0.9% [Saline Flush] Med 02/25/20 20:19 Active 10 ml FLUSH Q8HR PRN Peripheral IV Insertion Adult [OM.PC] Routine Oth 02/25/20 20:19 Ordered Medication Orders Sodium Chloride (Normal Saline) 1,000 mls @ 999 mls/hr IV ASDIRECTED [facility] Last Admin: 02/25/20 20:41 Dose: 999 mls/hr Sodium Chloride (Saline Flush) 10 ml FLUSH Q8HR PRN PRN Reason: keep vein open Last Admin: 02/25/20 20:33 Dose: 10 ml Labs: Laboratory Tests 02/25/20 02/25/20 02/25/20 Range/Units 20:25 20:25 20:45 WBC 8.20 (5.00-10.00) 10^3/uL RBC 4.75 (4.50-6.00) 10^6/uL Hgb 13.8 (13.0-17.0) g/dL Hct 42.0 (40.0-52.0) % MCV 88.4 D (82.0-92.0) fL MCH 29.1 (27.0-31.0) pg MCHC 32.9 (32.0-36.0) g/dL RDW 14.7 H (11.5-14.5) % Plt Count 213 (150-400) 10^3/uL MPV 12.4 H (7.4-10.4) fL Immature Gran % (Auto) 0.1 (0.0-5.0) % Neut % (Auto) 57.3 (50.0-70.0) % Lymph % (Auto) 29.6 (20.0-40.0) % Smith % (Auto) 9.6 H (2.0-8.0) % Eos % (Auto) 2.8 (1.0-3.0) % Baso % (Auto) 0.6 (0.0-1.0) % Neut # (Auto) 4.69 (2.50-7.00) 10^3/uL Lymph # (Auto) 2.43 (1.00-4.00) 10^3/uL Smith # (Auto) 0.79 (0.10-0.80) 10^3/uL Eos # (Auto) 0.23 (0.10-0.30) 10^3/uL Baso # (Auto) 0.05 (0.00-0.10) 10^3/uL Immature Gran # (Auto) 0.01 (0.00-0.50) 10^3/uL Sodium 144 (136-145) mmol/L Potassium 4.3 (3.3-5.3) mmol/L Chloride 109 (98-115) mmol/L Carbon Dioxide 25.0 (21.0-32.0) mmol/L Anion Gap 14.3 (5-15) mmol/L BUN 20 (6-25) mg/dL Creatinine 0.94 (0.51-1.17) mg/dL Est Cr Clr Drug Dosing 75.30 mL/min Estimated GFR (MDRD) > 60 mL/min Glucose 144 H (75 - 99) mg/dL Calcium 8.6 L (8.7-10.3) mg/dL Total Bilirubin 0.1 L (0.2-1.0) mg/dL AST 22 (15-37) U/L ALT 31 (12-78) U/L Alkaline Phosphatase 99 (46-116) IU/L Total Protein 6.4 (6.4-8.2) g/dL Albumin 3.60 (3.00-4.80) g/dL Specimen Type . Urine Color Yellow (YELLOW) Urine Appearance Clear (CLEAR) Urine pH 6.0 (5.0-9.0) Ur Specific [place] 1.025 (1.005-1.030) Urine Protein Negative (NEGATIVE) mg/dL Urine Glucose (UA) Negative (NEGATIVE) mg/dL Urine Ketones Negative (NEGATIVE) mg/dL Urine Occult Blood Negative (NEGATIVE) Urine Nitrite Negative (NEGATIVE) Urine Bilirubin Negative (NEGATIVE) Urine Urobilinogen 0.2 (0.2-1.0) E.U./dL Ur Leukocyte Esterase Negative (NEGATIVE) Meds: Medications Generic Name Dose Route Start Last Admin Trade Name Freq PRN Reason Stop Dose Admin Sodium Chloride 1,000 mls @ 999 mls/hr 02/25/20 20:30 02/25/20 20:41 Normal Saline IV 999 mls/hr ASDIRECTED BUCK Administration Sodium Chloride 10 ml 02/25/20 20:19 02/25/20 20:33 Saline Flush FLUSH 10 ml Q8HR PRN Administration keep vein open Discontinued Medications Generic Name Dose Route Start Last Admin Trade Name Freq PRN Reason Stop Dose Admin Ketorolac Tromethamine 30 mg 02/25/20 20:21 02/25/20 20:28 Toradol IVPUSH 02/25/20 20:22 30 mg ONETIME ONE Administration Ketorolac Tromethamine 30 mg 02/25/20 20:22 02/25/20 20:33 Toradol IM 02/25/20 20:23 30 mg ONETIME ONE Administration - Re-Assessments/Exams Free Text/Narrative Re-Assessment/Exam: 02/25/20 21:48 Significant improvement after the administration of the Toradol. No significant findings on laboratory analysis. Departure - Departure Time of Disposition: 21:49 Disposition: Home, Self-Care 01 Condition: Good Clinical Impression: Renal colic on left side, Lung nodules, Renal lithiasis, Constipation - Discharge Information *PRESCRIPTION DRUG MONITORING PROGRAM REVIEWED*: Not Applicable *COPY OF PRESCRIPTION DRUG MONITORING REPORT IN PATIENT RAY: Not Applicable Instructions: Kidney Stones, [id number], Renal Colic, [id number], Constipation, Adult, [id number] Referrals: Imani Jack MD [Primary Care Provider] - Forms: ED Department Discharge Additional Instructions: It is possible that with your severe pain last night radiating into your groin that you passed one of the stones that you're told you have had in your left kidney on past CT tests. There is only one seen on tonight's scan. You have small renal cysts on both sides, no obstruction. You are slightly constipated so continue your stool softener and laxative regimen. You have a small hernia around the (bellybutton), periumbilical, and bilateral inguinal cysts. [facility] visits you have to show them this report and discuss follow-up on your lung nodules. There are other incidental findings on the report that are not affecting your visit this evening. Please contact your clinic for follow-up as needed, and follow up as scheduled with the [facility]. Continue all of your medications as directed Make sure you continue with your constipation regimen and drink plenty of water to assist in clearing with constipation, as well as reducing your risk of forming further kidney stones. Sepsis Event Note (ED) - Evaluation Sepsis Screening Result: No Definite Risk - Focused Exam Vital Signs: Vital Signs Temp Pulse Resp BP Pulse Ox 02/25/20 20:00 36.3 C 62 18 175/53 H 97 - Problem List & Annotations (1) Renal colic on left side SNOMED Code(s): 9813182 Code(s): N23 - UNSPECIFIED RENAL COLIC Status: Acute Priority: High Current Visit: Yes (2) Lung nodules SNOMED Code(s): 651842417 Code(s): R91.8 - OTHER NONSPECIFIC ABNORMAL FINDING OF LUNG FIELD Status: Chronic Priority: Medium Current Visit: Yes (3) Renal lithiasis SNOMED Code(s): 42177070 Code(s): N20.0 - CALCULUS OF KIDNEY Status: Chronic Priority: Medium Current Visit: Yes (4) Constipation SNOMED Code(s): 15200745 Code(s): K59.00 - CONSTIPATION, UNSPECIFIED Status: Acute Current Visit: Yes Qualifiers: Constipation type: unspecified constipation type Qualified Code(s): K59.00 - Constipation, unspecified (5) Hyperglycemia, unspecified SNOMED Code(s): 48891504 Code(s): R73.9 - HYPERGLYCEMIA, UNSPECIFIED Status: Acute Current Visit: Yes - Problem List Review Problem List Initiated/Reviewed/Updated: Yes - My Orders Last 24 Hours: My Active Orders 02/25/20 20:17 Abdomen Pelvis wo Cont [CT] Stat 02/25/20 20:19 Peripheral IV Care [RC] . DIRECTED Sodium Chloride 0.9% [Saline Flush] 10 ml FLUSH Q8HR PRN Peripheral IV Insertion Adult [OM.PC] Routine 02/25/20 20:30 Sodium Chloride 0.9% [Normal Saline] 1,000 ml IV ASDIRECTED - Assessment/Plan Last 24 Hours: My Active Orders 02/25/20 20:17 Abdomen Pelvis wo Cont [CT] Stat 02/25/20 20:19 Peripheral IV Care [RC] . DIRECTED Sodium Chloride 0.9% [Saline Flush] 10 ml FLUSH Q8HR PRN Peripheral IV Insertion Adult [OM.PC] Routine 02/25/20 20:30 Sodium Chloride 0.9% [Normal Saline] 1,000 ml IV ASDIRECTED Plan: It is possible that with your severe pain last night radiating into your groin that you passed one of the stones that you're told you have had in your left kidney on past CT tests. There is only one seen on tonight's scan. You have small renal cysts on both sides, no obstruction. You are slightly constipated so continue your stool softener and laxative regimen. You have a small hernia around the (bellybutton), periumbilical, and bilateral inguinal cysts. [facility] next visits you have to show them this report and discuss follow-up on your lung nodules. There are other incidental findings on the report that are not affecting your visit this evening. Please contact your clinic for follow-up as needed, and follow up as scheduled with the [facility]. Continue all of your medications as directed Make sure you continue with your constipation regimen and drink plenty of water to assist in clearing with constipation, as well as reducing your risk of forming further kidney stones.
[2020-02-25] MEDS: Ketorolac 30 MG/ML SDV IVPUSH ONE (20:28)
[2020-02-25] MEDS: Sodium Chloride 0.9% 10 ML Syringe FLUSH PRN (20:33)
[2020-02-25] MEDS: Ketorolac 30 MG/ML SDV IM ONE (20:33)
[2020-02-25] MEDS: Sodium Chloride 0.9% 1,000 ML IV SCH (20:41)
[2020-02-25 21:05] LABS: ANION GAP 14.3 mmol/L (5-15); CHLORIDE,CL 109 mmol/L (98-115); SODIUM,NA 144 mmol/L (136-145)
--- NOTE | 2020-02-26 11:14 | CT ---
[id number] CT/CT Abdomen Pelvis WO IV EXAM: ABDOMEN AND PELVIS CT WITHOUT CONTRAST INDICATION: Renal colic. COMPARISON: October 01, 2016. DISCUSSION: Tiny parenchymal calculus lower pole left kidney. No definite nephrolithiasis. No ureteral calculus or hydronephrosis on either side. A couple of 10 mm exophytic hypodensities arising from the right kidney are indeterminate by density. Prostatomegaly. Mildly prominent stool volume within the proximal colon. Scattered colonic diverticulosis without evidence of diverticulitis. The appendix is not identified. Fluid-filled mildly ectatic proximal small bowel loops likely relating to nonfasting state with recent ingestion. Stable 6 mm noncalcified nodule in the left lung base, 5 mm right lower lobe pulmonary nodule, and mild scarring or atelectasis in both imaged lung bases. An additional noncalcified nodule in the right lung base was not definitely seen on the prior study and measures up to 6 mm in diameter (image 22 series 2). Small fat-containing bilateral inguinal and umbilical hernias. Unenhanced images of the liver, gallbladder, spleen, pancreas, and adrenal glands are unremarkable. Bilateral hip arthroplasties. Grade 1 degenerative L4-L5 and L5-S1 spondylolisthesis. Superior endplate compression deformity at L1. IMPRESSION: 1. Tiny parenchymal calculus lower pole left kidney. No obstructing calculi or hydronephrosis on either side. 2. Mildly elevated colonic stool volume. 3. Indeterminate 6 mm right lower lobe noncalcified pulmonary nodule Gio Cano MD 02/26/20 [id number] Thank you for allowing us to participate in the care of your patient.
== END 2020-02-25 22:04 | disposition home or self-care (01) ==
LOC: KA.ED 19:57
DX: N20.0 Calculus of kidney (principal); K59.00 Constipation, unspecified; R91.1 Solitary pulmonary nodule; I10 Essential (primary) hypertension; I48.91 Unspecified atrial fibrillation; E78.00 Pure hypercholesterolemia, unspecified; K21.9 Gastro-esophageal reflux disease without esophagitis; N40.0 Benign prostatic hyperplasia without lower urinary tract symptoms; M19.90 Unspecified osteoarthritis, unspecified site; Z90.49 Acquired absence of other specified parts of digestive tract; Z79.01 Long term (current) use of anticoagulants; Z79.899 Other long term (current) drug therapy
CPT/HCPCS: 36415; 74176; 80053; 81003; 85025; 96372; 96374; 99284; J1885; J7030

== ENCOUNTER 2020-03-03 15:41 | Emergency (ER) | payer MEDICARE, OTHER ==
[2020-03-03 16:01] VITALS: BP 115/59; PULSE 53
--- NOTE | 2020-03-03 16:15 | EDM.PDOC ---
ED HPI GENERAL MEDICAL PROBLEM - General Chief Complaint: Lower Extremity Injury/Pain Stated Complaint: RIGHT LEG PAIN/LEFT GROIN Time Seen by Provider: 03/03/20 15:55 Source of Information: Reports: Patient History Limitations: Reports: No Limitations - History of Present Illness INITIAL COMMENTS - FREE TEXT/NARRATIVE: Patient presents with pain in his lower right leg that started during the night and was quite severe when he got up and put weight on it. He isn't aware of any recent injury but says he was climbing in and out of a tractor some yesterday. He is 4 months S/P right TKA and has had bilat hips replaced in the past also. This pain is new he says and he is limping quite noticeably. He says he also has had pain in the left groin for about a week may be two. It started after he had a left kidney stone and has been quite constant. It feels like pressure and swelling. - Related Data Allergies Allergy/AdvReac Type Severity Reaction Status Date / Time No Known Drug Allergies Allergy Cannot Verified 03/03/20 16:01 Remember Home Meds: Home Meds Simvastatin [Zocor] 10 mg PO BEDTIME 01/05/17 [History] Rivaroxaban [Xarelto] 20 mg PO DAILY@1800 01/09/19 [History] Tamsulosin HCl [Flomax] 0.4 mg PO BEDTIME 01/09/19 [History] Metoprolol Succinate 50 mg PO DAILY #10 tab.er.24h 01/10/19 [Rx] OLANZapine [Olanzapine] 5 mg PO BEDTIME 02/25/20 [History] Omeprazole 20 mg PO DAILY PRN 02/25/20 [History] Diclofenac Sodium 50 mg PO TID PRN 03/03/20 [History] Finasteride 5 mg PO DAILY 03/03/20 [History] polyethylene glycoL 3350 [MiraLAX] 17 gm PO DAILY PRN 03/03/20 [History] traZODone HCl [Trazodone HCl] 100 mg PO BEDTIME 03/03/20 [History] Past Medical History HEENT History: Reports: Impaired Vision Cardiovascular History: Reports: Afib, High Cholesterol, Hypertension Respiratory History: Reports: Other (See Below) Other Respiratory History: nodule left lung Gastrointestinal History: Reports: GERD Genitourinary History: Reports: BPH, Renal Calculus Musculoskeletal History: Reports: Arthritis Neurological History: Reports: None Hematologic History: Reports: Anticoagulation Therapy, Blood Transfusion(s) Oncologic (Cancer) History: Reports: Other (See Below) Other Oncologic History: skin lesion removal - Past Surgical History HEENT Surgical History: Reports: Tonsillectomy Cardiovascular Surgical History: Reports: None GI Surgical History: Reports: Appendectomy, Colonoscopy Male Surgical History: Reports: None Musculoskeletal Surgical History: Reports: Hip Replacement - Past Imaging History Past Imaging History: Reports: CAT Scan, Xray Social & Family History - Family History Family Medical History: Noncontributory - Caffeine Use Caffeine Use: Reports: Tea Review of Systems - Review of Systems Review Of Systems: See Below Constitutional: Denies: Chills, Fever, Weakness Eyes: Denies: Vision Change Ears: Denies: Dizziness Nose: Denies: Epistaxis Mouth/Throat: Denies: Pain, Hoarse Voice Respiratory: Denies: Shortness of Breath, Cough Cardiovascular: Denies: Chest Pain, Syncope GI/Abdominal: Denies: Abdominal Pain, Nausea, Vomiting Genitourinary: Denies: Dysuria Musculoskeletal: Reports: Leg Pain. Denies: Neck Pain, Shoulder Pain, Arm Pain, Back Pain, Hand Pain, Foot Pain Skin: Denies: Cyanosis, Jaundice, Mottled, Pallor, Diaphoresis Neurological: Denies: Confusion, Dizziness, Headache, Seizure, Syncope, Trouble Speaking, Difficulty Walking Psychiatric: Denies: Confusion ED EXAM, GENERAL - Physical Exam Exam: See Below Exam Limited By: No Limitations General Appearance: Alert, WD/WN, No Apparent Distress Eye Exam: Bilateral Eye: EOMI, Normal Inspection, PERRL Ears: Normal External Exam, Hearing Grossly Normal Nose: Normal Inspection, No Blood Throat/Mouth: Normal Inspection, Normal Voice, No Airway Compromise Head: Atraumatic, Normocephalic Neck: Normal Inspection, Full Range of Motion Respiratory/Chest: No Respiratory Distress, Lungs Clear, Normal Breath Sounds, No Accessory Muscle Use Cardiovascular: Regular Rate, Rhythm, No Murmur GI/Abdominal: Soft, Non-Tender. No: Guarding, Rigid (Male) Exam: No Hernia. No: Inguinal Lymphadenopathy, Scrotal Swelling, Scrotum Tenderness (L), Scrotum Tenderness (R), Suprapubic Fullness, Testicular Mass, Testicular Tenderness (L), Testicular Tenderness (R) Back Exam: Normal Inspection, Full Range of Motion. No: CVA Tenderness (L), CVA Tenderness (R) Extremities: Other (Pain is located at the proximal tibia region, medial and lateral, but not significantly reproducible with firm palpation. No pain to pressure of tibial bone but mildly tender in anterolateral adjacent muscle.) Neurological: Alert, Oriented, Normal Cognition, No Motor/Sensory Deficits Psychiatric: Normal Affect, Normal Mood Skin Exam: Warm, Dry, Intact, Normal Color, No Rash Course - Vital Signs Last Recorded V/S: Last Vital Signs Temp 97.1 F 03/03/20 15:58 Pulse 53 L 03/03/20 15:58 Resp 18 03/03/20 15:58 BP 115/59 L 03/03/20 15:58 Pulse Ox 97 03/03/20 15:58 - Orders/Labs/Meds Orders: Active Orders 24 hr Category Date Time Status Knee 3V Rt [CR] Stat Exams 03/03/20 16:09 Ordered Tibia Fibula Rt [CR] Stat Exams 03/03/20 16:09 Ordered - Re-Assessments/Exams Free Text/Narrative Re-Assessment/Exam: 03/03/20 17:13 Xrays look good with well-fitting TKA components and no evidence of loosening or other bony pathology. I discussed findings and treatment options with patient and since he has both Hydrocodone and Tramadol at home leftover from his recent TKA, I advised him to start with the Tramadol along with the Diclofenac and see if he gets relief. He can switch to Hydrocodone if needed but either way should follow up with his PCP on Thursday. Departure - Departure Time of Disposition: 17:10 Disposition: Home, Self-Care 01 Condition: Good Clinical Impression: Acute pain of right lower extremity - Discharge Information Referrals: Imani Jack MD [Primary Care Provider] - Additional Instructions: Take your Diclofenac as directed. Use your Tramadol or Hydrocodone as directed until pain is resolving. Follow up with your PCP on Thursday if this is continuing. Discuss your groin pain with your PCP at that time also. Sepsis Event Note (ED) - Evaluation Sepsis Screening Result: No Definite Risk - Focused Exam Vital Signs: Vital Signs Temp Pulse Resp BP Pulse Ox 03/03/20 15:58 97.1 F 53 L 18 115/59 L 97 - My Orders Last 24 Hours: My Active Orders 03/03/20 16:09 Knee 3V Rt [CR] Stat Tibia Fibula Rt [CR] Stat - Assessment/Plan Last 24 Hours: My Active Orders 03/03/20 16:09 Knee 3V Rt [CR] Stat Tibia Fibula Rt [CR] Stat
--- NOTE | 2020-03-03 17:20 | CR ---
[id number] RAD/RAD Tibia Fibula Right EXAM: RAD Tibia Fibula Right CLINICAL DATA: TRAUMA COMPARISON: NO PREVIOUS SIMILAR EXAM IS AVAILABLE. FINDINGS: The right knee prosthesis appears intact No fracture or dislocation is seen. There is no radiopaque foreign body in the soft tissues. There is no air in the soft tissues. There is no cortical thickening or periosteal reaction either. IMPRESSION: NEGATIVE PLAIN FILM EXAM. Lionel Maradiaga MD 03/03/20 [phone] Thank you for allowing us to participate in the care of your patient.
--- NOTE | 2020-03-03 17:21 | CR ---
[id number] RAD/RAD Knee Right 3V EXAM: RAD Knee Right 3V CLINICAL DATA: PAIN COMPARISON: NO PREVIOUS SIMILAR EXAM IS AVAILABLE. FINDINGS: There is soft tissue swelling The prosthesis appears intact There is soft tissue calcification inferior to the patella. Anterior cortical osteophyte is seen just above the prosthesis Correlation with previous films would be helpful IMPRESSION: NO FRACTURE OR DISLOCATION SMALL TO MODERATE EFFUSION Lionel Maradiaga MD 03/03/20 [id number] Thank you for allowing us to participate in the care of your patient.
== END 2020-03-03 17:35 | disposition home or self-care (01) ==
LOC: KA.ED 15:41
DX: M79.661 Pain in right lower leg (principal); I48.91 Unspecified atrial fibrillation; E78.00 Pure hypercholesterolemia, unspecified; I10 Essential (primary) hypertension; K21.9 Gastro-esophageal reflux disease without esophagitis; Z79.01 Long term (current) use of anticoagulants; Z79.899 Other long term (current) drug therapy
CPT/HCPCS: 73562-RT; 73590-RT; 99283-25; 99284

== ENCOUNTER 2020-03-22 16:42 | Emergency (ER) | payer MEDICARE, OTHER ==
--- NOTE | 2020-03-22 17:35 | EDM.PDOC ---
ED HPI GENERAL MEDICAL PROBLEM - General Chief Complaint: Head Injury Stated Complaint: HEAD INJURY FROM FALL Time Seen by Provider: 03/22/20 17:10 Source of Information: Reports: Patient History Limitations: Reports: No Limitations - History of Present Illness INITIAL COMMENTS - FREE TEXT/NARRATIVE: 79 YO WM PRESENTS TO ER AFTER TRIP AND FALL 2 HOURS AGO AT HOME. PT COMPLAINING OF RIGHT SIDED RIB PAIN, RIGHT SHOULDER PAIN AND MINOR HEAD INJURY WITHOUT PAIN CURRENTLY. PT REPORTS HE WAS MOVING A HEAVY PIECE OF EQUIPMENT AND LOST HIS BALANCE FALLING ON HIS RIGHT SIDE. PT REPORTS HE INITIALLY DIDN'T WANT TO COME TO HOSPITAL BUT ONCE HIS RIB PAIN BEGAN TO WORSEN, HE THOUGHT HE SHOULD BE EVALUATED. PT DENIES NECK OR BACK PAIN. PT ABLE TO AMBULATE WITHOUT DIFFICULTY. PT ALERT AND ORIENTED X 4. PT REPORTS MINIMAL SHORTNESS OF BREATH BUT STATES HE HAS MORE DISCOMFORT UPON DEEP INSPIRATION. Onset: Today Duration: Hour(s): (3) Location: Reports: Head, Chest, Upper Extremity, Right Quality: Reports: Ache Severity: Moderate Improves with: Reports: Rest Worsens with: Reports: Movement Associated Symptoms: Reports: No Other Symptoms, Chest Pain. Denies: Confusion, Nausea/Vomiting Right Thoracic Pain Score (Numeric/FACES): 8 - Related Data Allergies Allergy/AdvReac Type Severity Reaction Status Date / Time No Known Drug Allergies Allergy Cannot Verified 03/03/20 16:01 Remember Home Meds: Home Meds Simvastatin [Zocor] 5 mg PO BEDTIME 01/05/17 [History] Rivaroxaban [Xarelto] 20 mg PO DAILY@1800 01/09/19 [History] Tamsulosin HCl [Flomax] 0.4 mg PO BEDTIME 01/09/19 [History] Metoprolol Succinate 50 mg PO DAILY #10 tab.er.24h 01/10/19 [Rx] OLANZapine [Olanzapine] 5 mg PO BEDTIME 02/25/20 [History] Omeprazole 20 mg PO DAILY PRN 02/25/20 [History] Diclofenac Sodium 50 mg PO TID PRN 03/03/20 [History] Finasteride 5 mg PO DAILY 03/03/20 [History] polyethylene glycoL 3350 [MiraLAX] 17 gm PO DAILY PRN 03/03/20 [History] traZODone HCl [Trazodone HCl] 100 mg PO BEDTIME 03/03/20 [History] Past Medical History HEENT History: Reports: Impaired Vision Cardiovascular History: Reports: Afib, High Cholesterol, Hypertension Respiratory History: Reports: Other (See Below) Other Respiratory History: nodule left lung Gastrointestinal History: Reports: GERD Genitourinary History: Reports: BPH, Renal Calculus Musculoskeletal History: Reports: Arthritis Neurological History: Reports: None Hematologic History: Reports: Anticoagulation Therapy, Blood Transfusion(s) Oncologic (Cancer) History: Reports: Other (See Below) Other Oncologic History: skin lesion removal - Past Surgical History HEENT Surgical History: Reports: Tonsillectomy Cardiovascular Surgical History: Reports: None GI Surgical History: Reports: Appendectomy, Colonoscopy Male Surgical History: Reports: None Musculoskeletal Surgical History: Reports: Hip Replacement - Past Imaging History Past Imaging History: Reports: CAT Scan, Xray Social & Family History - Family History Family Medical History: Noncontributory - Caffeine Use Caffeine Use: Reports: Tea Other Caffeine Use: decaf ED ROS GENERAL - Review of Systems Review Of Systems: See Below Constitutional: Reports: No Symptoms HEENT: Reports: No Symptoms Respiratory: Reports: Pleuritic Chest Pain Cardiovascular: Reports: No Symptoms Endocrine: Reports: No Symptoms GI/Abdominal: Reports: No Symptoms : Reports: No Symptoms Musculoskeletal: Reports: Shoulder Pain Skin: Reports: No Symptoms Neurological: Reports: No Symptoms. Denies: Confusion, Dizziness, Headache, Difficulty Walking, Weakness Psychiatric: Reports: No Symptoms Hematologic/Lymphatic: Reports: No Symptoms Immunologic: Reports: No Symptoms ED EXAM, HEAD INJURY - Physical Exam Exam: See Below Exam Limited By: No Limitations General Appearance: Alert, WD/WN, No Apparent Distress Head: Normocephalic. No: Scalp Lacerations, Scalp Swelling, Scalp Abrasions, Scalp Hematoma, Scalp Tenderness, Active Bleeding, Correa's Sign, Facial Abrasions, Facial Lacerations, Facial Swelling, Facial Tenderness Eyes: Bilateral Eye: EOMI, PERRL Neck: Non-Tender, Full Range of Motion, Normal Alignment, Normal Inspection Respiratory: No Respiratory Distress, Lungs Clear, Normal Breath Sounds, No Accessory Muscle Use, Chest Non-Tender Cardiovascular: Normal Peripheral Pulses, Regular Rate, Rhythm, No Edema, No Gallop, No JVD, No Murmur, No Rub GI/Abdominal Exam: Normal Bowel Sounds, Soft, Non-Tender, No Organomegaly, No Distention, No Abnormal Bruit, No Mass Back Exam: Full Range of Motion, Normal Inspection, NT Extremities: Normal Inspection, Normal Range of Motion, No Pedal Edema, Normal Capillary Refill, Arm Pain (RIGHT SHOULDER PAIN. AROM WITHOUT DISCOMFORT) Neurologic: account development manager II-XII nml As Tested, No Motor/Sensory Deficits, Alert, Normal Mood/Affect, Oriented x 3 Skin: Normal Color, Warm/Dry - Braeden Coma Score Best Eye Response (Gary): (4) Open Spontaneously Best Verbal Response (Braeden): (5) Oriented Best Motor Response (Braeden): (6) Obeys Commands Course - Vital Signs Last Recorded V/S: Last Vital Signs Temp 36.2 C 03/22/20 17:00 Pulse 62 03/22/20 18:23 Resp 20 03/22/20 18:23 BP 162/56 H 03/22/20 18:23 Pulse Ox 99 03/22/20 18:23 - Orders/Labs/Meds Orders: Active Orders 24 hr Category Date Time Status EKG Documentation Completion [RC] ASDIRECTED Care 03/22/20 17:41 Active Peripheral IV Care [RC] . DIRECTED Care 03/22/20 18:08 Active Sodium Chloride 0.9% [Normal Saline] 1,000 ml Med 03/22/20 18:30 Active IV ASDIRECTED Sodium Chloride 0.9% [Saline Flush] Med 03/22/20 18:08 Active 10 ml FLUSH Q8HR PRN Peripheral IV Insertion Adult [OM.PC] Routine Oth 03/22/20 18:08 Ordered EKG 12 Lead [EK] Stat Ther 03/22/20 17:40 Ordered Medication Orders Sodium Chloride (Normal Saline) 1,000 mls @ 125 mls/hr IV ASDIRECTED BUCK Last Admin: 03/22/20 18:45 Dose: 125 mls/hr Documented by: DAK[place] Sodium Chloride (Saline Flush) 10 ml FLUSH Q8HR PRN PRN Reason: keep vein open Meds: Medications Generic Name Dose Route Start Last Admin Trade Name Freq PRN Reason Stop Dose Admin Sodium Chloride 1,000 mls @ 125 mls/hr 03/22/20 18:30 03/22/20 18:45 Normal Saline IV 125 mls/hr ASDIRECTED BUCK Administration Sodium Chloride 10 ml 03/22/20 18:08 Saline Flush FLUSH Q8HR PRN keep vein open Discontinued Medications Generic Name Dose Route Start Last Admin Trade Name Everardoq PRN Reason Stop Dose Admin Morphine Sulfate 2 mg 03/22/20 18:08 03/22/20 18:21 Morphine IVPUSH 03/22/20 18:09 2 mg ONETIME ONE Administration Ondansetron HCl 4 mg 03/22/20 18:09 03/22/20 18:21 Zofran IVPUSH 03/22/20 18:10 4 mg ONETIME ONE Administration - Radiology Interpretation Free Text/Narrative:: CT HEAD- NAD RIGHT SHOULDER- NAD RIGHT RIB SERIES WITH CHEST- RIGHT APICAL PTX WITH RIGHT 7TH RIB FRACTURE - Re-Assessments/Exams Free Text/Narrative Re-Assessment/Exam: 03/22/20 18:10 DISCUSSED CASE WITH ER PHYSICIAN IN [place]- PT IS STABLE CURRENTLY; PT WOULD PREFER TO SEE SURGERY IN [place]- PT IN [facility]; WILL SEND BY AIR IN CASE PATIENT DECOMPENSATES 03/22/20 18:16 CURRENTLY NO ANESTHESIA IN HOUSE- PT WITH COMORBID MEDICAL PROBLEMS- ON XERATO; WILL CONSIDER EMERGENT CHEST TUBE IF PATIENTS CONDITION WORSENS. 03/22/20 18:20 DR SANCHEZ- GENERAL SURGERY AGREES AND WILL SEE PT IN OR UPON ARRIVAL Departure - Departure Time of Disposition: 18:20 Disposition: DC/Tfer to Acute Hospital 02 Condition: Serious Clinical Impression: Pneumothorax on right Right rib fracture Qualifiers: Encounter type: initial encounter Rib fracture type: single rib Fracture type: closed Qualified Code(s): S22.31XA - Fracture of one rib, right side, initial encounter for closed fracture Fall Qualifiers: Encounter type: initial encounter Qualified Code(s): W19.XXXA - Unspecified fall, initial encounter Minor head injury Qualifiers: Encounter type: initial encounter Qualified Code(s): S09.90XA - Unspecified injury of head, initial encounter - Discharge Information Referrals: Imani Jack MD [Primary Care Provider] - Forms: ED Department Discharge, Interfacility Transfer EMTALA Additional Instructions: 1. TRANSFER TO [facility] 2. DISCUSSED WITH DR BREEN/LAURA WHO ACCEPTED TRANSFER 3. SUPPORTIVE CARE 4. WILL CONSIDER EMERGENT CHEST TUBE IF PATIENT CONDITION WORSENS Sepsis Event Note (ED) - Focused Exam Vital Signs: Vital Signs Temp Pulse Resp BP Pulse Ox 03/22/20 18:23 62 20 162/56 H 99 03/22/20 17:00 36.2 C 62 20 165/62 H 96 - My Orders Last 24 Hours: My Active Orders 03/22/20 17:40 EKG 12 Lead [EK] Stat 03/22/20 17:41 EKG Documentation Completion [RC] ASDIRECTED 03/22/20 18:08 Peripheral IV Care [RC] . DIRECTED Sodium Chloride 0.9% [Saline Flush] 10 ml FLUSH Q8HR PRN Peripheral IV Insertion Adult [OM.PC] Routine 03/22/20 18:30 Sodium Chloride 0.9% [Normal Saline] 1,000 ml IV ASDIRECTED - Assessment/Plan Last 24 Hours: My Active Orders 03/22/20 17:40 EKG 12 Lead [EK] Stat 03/22/20 17:41 EKG Documentation Completion [RC] ASDIRECTED 03/22/20 18:08 Peripheral IV Care [RC] . DIRECTED Sodium Chloride 0.9% [Saline Flush] 10 ml FLUSH Q8HR PRN Peripheral IV Insertion Adult [OM.PC] Routine 03/22/20 18:30 Sodium Chloride 0.9% [Normal Saline] 1,000 ml IV ASDIRECTED Assessment:: 1. RIGHT APICAL PNEUMOTHORAX WITH RIGHT 7TH RIB FRACTURE Plan: 1. TRANSFER TO [facility] 2. DISCUSSED WITH DR BREEN/LAURA WHO ACCEPTED TRANSFER 3. SUPPORTIVE CARE 4. WILL CONSIDER EMERGENT CHEST TUBE IF PATIENT CONDITION WORSENS
--- NOTE | 2020-03-22 17:44 | CT ---
[id number] CT/CT Head WO IV EXAM: NONCONTRAST HEAD CT INDICATION: FALL. COMPARISON: September 18, 2016. DISCUSSION: There is mild generalized atrophy. Mild multifocal white matter hypoattenuation is nonspecific, but generally ascribed to chronic small vessel ischemia. No mass effect or midline shift. No acute hemorrhage or extra-axial fluid collection. No acute territorial infarct is identified. A limited look at the orbits and paranasal sinuses is unremarkable. IMPRESSION: 1. No evidence of acute intracranial trauma. Gio Cano MD 03/22/20 [id number] Thank you for allowing us to participate in the care of your patient.
--- NOTE | 2020-03-22 17:49 | CR ---
[id number] RAD/RAD Shoulder Right 2V Min EXAM: RAD Shoulder Right 2V Min INDICATION: FALL. COMPARISON: None. 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 The humeral head is high riding imaged remodeling of the undersurface of the acromion compatible with a chronic cuff tear. No acute fracture or dislocation is identified. A right-sided pneumothorax will be further detailed on a dedicated chest and rib views. IMPRESSION: 1. Incidental pneumothorax. 2. Advanced osteoarthritis. 3. Rotator cuff tear. Gio Cano MD 03/22/20 [id number] Thank you for allowing us to participate in the care of your patient.
--- NOTE | 2020-03-22 17:51 | CR ---
[id number] RAD/RAD Ribs Right W PA Chest EXAM: RAD Ribs Right W PA Chest INDICATION: FALL. COMPARISON: None. FINDINGS: An anterior right seventh rib fracture is suggested without significant displacement. No other definite rib fractures identified radiographically, but some may be obscured by chest wall gas. There is a small to moderate right chest wall emphysema and there is a moderate right apical pneumothorax measuring about 31 mm. Mild bibasilar atelectasis. Normal heart size. Results called at time dictation. IMPRESSION: 1. Moderate right apical pneumothorax. 2. Acute minimally displaced anterior right seventh rib fracture. Gio Cano MD 03/22/20 [id number] Thank you for allowing us to participate in the care of your patient.
[2020-03-22 18:07] VITALS: PULSE 62
[2020-03-22] MEDS ORDERED: Sodium Chloride 0.9% 10 ML Syringe FLUSH PRN (18:08)
[2020-03-22] MEDS: Ondansetron 4 MG/2 ML SDV IVPUSH ONE (18:21)
[2020-03-22] MEDS: Morphine 2 MG/ML SYRINGE IVPUSH ONE (18:21)
[2020-03-22] MEDS: Sodium Chloride 0.9% 1,000 ML IV SCH (18:45)
[2020-03-22 19:44] VITALS: BP 165/62
== END 2020-03-22 18:50 ==
LOC: KA.ED 16:42
DX: S27.0XXA Traumatic pneumothorax, initial encounter (principal); S22.31XA Fracture of one rib, right side, initial encounter for closed fracture; S09.90XA Unspecified injury of head, initial encounter; I48.91 Unspecified atrial fibrillation; E78.00 Pure hypercholesterolemia, unspecified; I10 Essential (primary) hypertension; K21.9 Gastro-esophageal reflux disease without esophagitis; Z79.01 Long term (current) use of anticoagulants; Z79.899 Other long term (current) drug therapy; W01.0XXA Fall on same level from slipping, tripping and stumbling without subsequent striking against object, initial encounter; Y92.009 Unspecified place in unspecified non-institutional (private) residence as the place of occurrence of the external cause
CPT/HCPCS: 70450; 71101-RT; 73030-RT; 93005; 96374; 96375; 99284; 99285-25; J2270; J2405; J7030

== ENCOUNTER 2020-10-26 08:38 | Inpatient (IN) | payer MEDICARE, OTHER ==
[2020-10-26] MEDS ORDERED: Metoprolol Tartrate 5 MG/5 ML SDV IVPUSH ONE ×2 (09:05→09:26)
[2020-10-26] MEDS: Sodium Chloride 0.9% 10 ML Syringe FLUSH PRN ×3 (09:13→09:28)
[2020-10-26] MEDS ORDERED: Metoprolol Tartrate 5 MG/5 ML SDV ONE (09:21)
--- NOTE | 2020-10-26 09:28 | EDM.PDOC ---
ED HPI GENERAL MEDICAL PROBLEM - General Chief Complaint: General Stated Complaint: RAPID HEART RATE Time Seen by Provider: 10/26/20 09:03 Source of Information: Reports: Patient, Significant Other History Limitations: Reports: No Limitations - History of Present Illness INITIAL COMMENTS - FREE TEXT/NARRATIVE: Patient presents with racing heart. He has had A Fib for 3 years and takes Xarelto. He tells me that around [id number] this morning he got up to use the bathroom. He was urinating every 15 minutes and also felt significant fatigue and fluttering/racing in his chest. Around [id number] he had some tightness across mid to left chest that lasted a couple hours. No chest pain or tightness now and no pain in jaw, neck, arms. No history of VA or stents. Left Chest Pain Score (Numeric/FACES): 2 - Related Data Allergies Allergy/AdvReac Type Severity Reaction Status Date / Time No Known Drug Allergies Allergy Cannot Verified 10/26/20 08:58 Remember Home Meds: Home Meds Simvastatin [Zocor] 5 mg PO BEDTIME 01/05/17 [History] Rivaroxaban [Xarelto] 20 mg PO DAILY@1800 01/09/19 [History] Tamsulosin HCl [Flomax] 0.4 mg PO BEDTIME 01/09/19 [History] Metoprolol Succinate 50 mg PO DAILY #10 tab.er.24h 01/10/19 [Rx] OLANZapine [Olanzapine] 5 mg PO BEDTIME 02/25/20 [History] Omeprazole 20 mg PO DAILY PRN 02/25/20 [History] Diclofenac Sodium 50 mg PO TID PRN 03/03/20 [History] Finasteride 5 mg PO BEDTIME 03/03/20 [History] polyethylene glycoL 3350 [MiraLAX] 17 gm PO DAILY PRN 03/03/20 [History] traZODone HCl [Trazodone HCl] 100 mg PO BEDTIME 03/03/20 [History] Sennosides/Docusate Sodium [Senna-S] 2 tab PO BEDTIME 10/26/20 [History] Past Medical History HEENT History: Reports: Impaired Vision Cardiovascular History: Reports: Afib, High Cholesterol, Hypertension Respiratory History: Reports: Other (See Below) Other Respiratory History: nodule left lung Gastrointestinal History: Reports: GERD Genitourinary History: Reports: BPH, Renal Calculus Musculoskeletal History: Reports: Arthritis Neurological History: Reports: None Hematologic History: Reports: Anticoagulation Therapy, Blood Transfusion(s) Oncologic (Cancer) History: Reports: Other (See Below) Other Oncologic History: skin lesion removal - Past Surgical History HEENT Surgical History: Reports: Tonsillectomy Cardiovascular Surgical History: Reports: None GI Surgical History: Reports: Appendectomy, Colonoscopy Male Surgical History: Reports: None Musculoskeletal Surgical History: Reports: Hip Replacement - Past Imaging History Past Imaging History: Reports: CAT Scan, Xray Social & Family History - Family History Family Medical History: No Pertinent Family History - Tobacco Use Tobacco Use Status *Q: Former Tobacco User Used Tobacco, but Quit: Yes Month/Year Tobacco Last Used: quit in the 's - Caffeine Use Caffeine Use: Reports: Coffee, Soda Other Caffeine Use: decaf - Recreational Drug Use Recreational Drug Use: No ED ROS GENERAL - Review of Systems Review Of Systems: See Below Constitutional: Reports: Fatigue. Denies: Fever, Chills HEENT: Denies: Throat Pain, Vision Change Respiratory: Denies: Shortness of Breath, Cough Cardiovascular: Reports: Lightheadedness (a little with the racing heart). Denies: Chest Pain Endocrine: Reports: Fatigue GI/Abdominal: Denies: Abdominal Pain, Diarrhea, Vomiting : Denies: Dysuria Musculoskeletal: Denies: Neck Pain, Shoulder Pain, Arm Pain, Back Pain, Hand Pain, Leg Pain Skin: Reports: Pallor (when his saw him at 0700 she said he looked pale). Denies: Cyanosis, Jaundice, Mottled, Diaphoresis Neurological: Denies: Confusion, Dizziness, Headache, Seizure, Syncope, Trouble Speaking, Difficulty Walking Psychiatric: Denies: Agitation, Anxiety, Confusion Hematologic/Lymphatic: Reports: Easy Bleeding (Xarelto) ED EXAM, GENERAL - Physical Exam Exam: See Below Exam Limited By: No Limitations General Appearance: Alert, WD/WN, No Apparent Distress Eye Exam: Bilateral Eye: EOMI, Normal Inspection, PERRL Ears: Normal External Exam, Hearing Grossly Normal Nose: Normal Inspection, No Blood Throat/Mouth: Normal Inspection, Normal Lips, Normal Voice, No Airway Compromise Head: Atraumatic, Normocephalic Neck: Normal Inspection, Full Range of Motion Respiratory/Chest: No Respiratory Distress, Lungs Clear, Normal Breath Sounds, No Accessory Muscle Use Cardiovascular: Normal Peripheral Pulses, No Edema, No JVD, Tachycardia, Irregularly Irregular Peripheral Pulses: 2+: Carotid (L), Carotid (R), Radial (L), Radial (R), Posterior Tibial (L), Posterior Tibial (R) GI/Abdominal: Normal Bowel Sounds, Soft, Non-Tender, No Organomegaly, No Distention, No Abnormal Bruit Back Exam: Normal Inspection, Full Range of Motion Extremities: Normal Inspection, Normal Range of Motion, Non-Tender, No Pedal Edema Neurological: Alert, Oriented, Normal Cognition, No Motor/Sensory Deficits Psychiatric: Normal Affect, Normal Mood Skin Exam: Warm, Dry, Intact, Normal Color, No Rash Course - Vital Signs Last Recorded V/S: Last Vital Signs Temp 96.2 F L 10/26/20 08:45 Pulse 98 10/26/20 10:45 Resp 11 L 10/26/20 10:45 BP 109/59 L 10/26/20 10:45 Pulse Ox 98 10/26/20 10:45 - Orders/Labs/Meds Orders: Active Orders 24 hr Category Date Time Status Patient Status [ADT] Routine ADT 10/26/20 10:58 Ordered EKG Documentation Completion [RC] ASDIRECTED Care 10/26/20 09:01 Active Peripheral IV Care [RC] . DIRECTED Care 10/26/20 08:52 Active Sodium Chloride 0.9% [Saline Flush] Med 10/26/20 08:52 Active 10 ml FLUSH Q8HR PRN Peripheral IV Insertion Adult [OM.PC] Routine Oth 10/26/20 08:52 Ordered EKG 12 Lead [EK] Stat Ther 10/26/20 09:00 Ordered Medication Orders Sodium Chloride (Saline Flush) 10 ml FLUSH Q8HR PRN PRN Reason: keep vein open Last Admin: 10/26/20 09:28 Dose: 10 ml Documented by: Admin: 10/26/20 09:14 Dose: 10 ml Documented by: Admin: 10/26/20 09:13 Dose: 10 ml Documented by: KIARA Labs: Laboratory Tests 10/26/20 10/26/20 10/26/20 Range/Units 08:50 08:50 08:50 WBC 10.21 H (5.00-10.00) 10^3/uL RBC 4.68 (4.50-6.00) 10^6/uL Hgb 13.3 (13.0-17.0) g/dL Hct 42.2 (40.0-52.0) % MCV 90.2 (82.0-92.0) fL MCH 28.4 (27.0-31.0) pg MCHC 31.5 L (32.0-36.0) g/dL RDW 13.4 (11.5-14.5) % Plt Count 289 D (150-400) 10^3/uL MPV 11.6 H (7.4-10.4) fL Immature Gran % (Auto) 0.1 (0.0-5.0) % Neut % (Auto) 69.8 (50.0-70.0) % Lymph % (Auto) 20.1 (20.0-40.0) % Forrest % (Auto) 6.2 (2.0-8.0) % Eos % (Auto) 3.3 H (1.0-3.0) % Baso % (Auto) 0.5 (0.0-1.0) % Neut # (Auto) 7.13 H (2.50-7.00) 10^3/uL Lymph # (Auto) 2.05 (1.00-4.00) 10^3/uL Forrest # (Auto) 0.63 (0.10-0.80) 10^3/uL Eos # (Auto) 0.34 H (0.10-0.30) 10^3/uL Baso # (Auto) 0.05 (0.00-0.10) 10^3/uL Immature Gran # (Auto) 0.01 (0.00-0.50) 10^3/uL Sodium 140 (136-145) mmol/L Potassium 3.9 (3.5-5.1) mmol/L Chloride 103 (98-107) mmol/L Carbon Dioxide 26.6 (21.0-32.0) mmol/L Anion Gap 14.3 (5-15) mmol/L BUN 17 (7-18) mg/dL Creatinine 1.18 H (0.51-1.17) mg/dL Est Cr Clr Drug Dosing 59.99 mL/min Estimated GFR (MDRD) 60 mL/min Glucose 258 H (70-140) mg/dL Hemoglobin A1c 5.3 (4.3-5.7) % Lactic Acid (0.4-2.0) mmol/L Calcium 9.1 (8.7-10.3) mg/dL Magnesium (1.8-2.4) mg/dL Total Bilirubin 0.5 (0.2-1.0) mg/dL AST 17 (15-37) U/L ALT 23 (14-63) U/L Alkaline Phosphatase 152 H (46-116) U/L Troponin I 0.028 (0.000-0.056) ng/mL C-Reactive Protein (0.0-0.9) mg/dL Total Protein 6.9 (6.4-8.2) g/dL Albumin 3.40 (3.40-5.00) g/dL Specimen Type Urine Color (YELLOW) Urine Appearance (CLEAR) Urine pH (5.0-9.0) Ur Specific Jordan (1.005-1.030) Urine Protein (NEGATIVE) mg/dL Urine Glucose (UA) (NEGATIVE) mg/dL Urine Ketones (NEGATIVE) mg/dL Urine Occult Blood (NEGATIVE) Urine Nitrite (NEGATIVE) Urine Bilirubin (NEGATIVE) Urine Urobilinogen (0.2-1.0) E.U./dL Ur Leukocyte Esterase (NEGATIVE) Urine RBC (0-5) /HPF Urine WBC (0-5) /HPF Ur Epithelial Cells /LPF Urine Bacteria (NONE TO FEW) /HPF Urine Mucus (NEGATIVE) /LPF SARS CoV-2 RNA Rapid MOSES (NEGATIVE) 10/26/20 10/26/20 10/26/20 Range/Units 08:50 08:50 10:05 WBC (5.00-10.00) 10^3/uL RBC (4.50-6.00) 10^6/uL Hgb (13.0-17.0) g/dL Hct (40.0-52.0) % MCV (82.0-92.0) fL MCH (27.0-31.0) pg MCHC (32.0-36.0) g/dL RDW (11.5-14.5) % Plt Count (150-400) 10^3/uL MPV (7.4-10.4) fL Immature Gran % (Auto) (0.0-5.0) % Neut % (Auto) (50.0-70.0) % Lymph % (Auto) (20.0-40.0) % Forrest % (Auto) (2.0-8.0) % Eos % (Auto) (1.0-3.0) % Baso % (Auto) (0.0-1.0) % Neut # (Auto) (2.50-7.00) 10^3/uL Lymph # (Auto) (1.00-4.00) 10^3/uL Forrest # (Auto) (0.10-0.80) 10^3/uL Eos # (Auto) (0.10-0.30) 10^3/uL Baso # (Auto) (0.00-0.10) 10^3/uL Immature Gran # (Auto) (0.00-0.50) 10^3/uL Sodium (136-145) mmol/L Potassium (3.5-5.1) mmol/L Chloride (98-107) mmol/L Carbon Dioxide (21.0-32.0) mmol/L Anion Gap (5-15) mmol/L BUN (7-18) mg/dL Creatinine (0.51-1.17) mg/dL Est Cr Clr Drug Dosing mL/min Estimated GFR (MDRD) mL/min Glucose (70-140) mg/dL Hemoglobin A1c (4.3-5.7) % Lactic Acid 3.0 H (0.4-2.0) mmol/L Calcium (8.7-10.3) mg/dL Magnesium 2.3 (1.8-2.4) mg/dL Total Bilirubin (0.2-1.0) mg/dL AST (15-37) U/L ALT (14-63) U/L Alkaline Phosphatase (46-116) U/L Troponin I (0.000-0.056) ng/mL C-Reactive Protein 1.1 H (0.0-0.9) mg/dL Total Protein (6.4-8.2) g/dL Albumin (3.40-5.00) g/dL Specimen Type Urincc Urine Color Yellow (YELLOW) Urine Appearance Clear (CLEAR) Urine pH 7.0 (5.0-9.0) Ur Specific Jordan 1.025 (1.005-1.030) Urine Protein Trace H (NEGATIVE) mg/dL Urine Glucose (UA) Negative (NEGATIVE) mg/dL Urine Ketones Trace H (NEGATIVE) mg/dL Urine Occult Blood Trace-intact H (NEGATIVE) Urine Nitrite Negative (NEGATIVE) Urine Bilirubin Negative (NEGATIVE) Urine Urobilinogen 0.2 (0.2-1.0) E.U./dL Ur Leukocyte Esterase Negative (NEGATIVE) Urine RBC 0-5 (0-5) /HPF Urine WBC 5-10 H (0-5) /HPF Ur Epithelial Cells Few /LPF Urine Bacteria Rare (NONE TO FEW) /HPF Urine Mucus Rare H (NEGATIVE) /LPF SARS CoV-2 RNA Rapid MOSES (NEGATIVE) 10/26/20 Range/Units 10:16 WBC (5.00-10.00) 10^3/uL RBC (4.50-6.00) 10^6/uL Hgb (13.0-17.0) g/dL Hct (40.0-52.0) % MCV (82.0-92.0) fL MCH (27.0-31.0) pg MCHC (32.0-36.0) g/dL RDW (11.5-14.5) % Plt Count (150-400) 10^3/uL MPV (7.4-10.4) fL Immature Gran % (Auto) (0.0-5.0) % Neut % (Auto) (50.0-70.0) % Lymph % (Auto) (20.0-40.0) % Forrest % (Auto) (2.0-8.0) % Eos % (Auto) (1.0-3.0) % Baso % (Auto) (0.0-1.0) % Neut # (Auto) (2.50-7.00) 10^3/uL Lymph # (Auto) (1.00-4.00) 10^3/uL Forrest # (Auto) (0.10-0.80) 10^3/uL Eos # (Auto) (0.10-0.30) 10^3/uL Baso # (Auto) (0.00-0.10) 10^3/uL Immature Gran # (Auto) (0.00-0.50) 10^3/uL Sodium (136-145) mmol/L Potassium (3.5-5.1) mmol/L Chloride (98-107) mmol/L Carbon Dioxide (21.0-32.0) mmol/L Anion Gap (5-15) mmol/L BUN (7-18) mg/dL Creatinine (0.51-1.17) mg/dL Est Cr Clr Drug Dosing mL/min Estimated GFR (MDRD) mL/min Glucose (70-140) mg/dL Hemoglobin A1c (4.3-5.7) % Lactic Acid (0.4-2.0) mmol/L Calcium (8.7-10.3) mg/dL Magnesium (1.8-2.4) mg/dL Total Bilirubin (0.2-1.0) mg/dL AST (15-37) U/L ALT (14-63) U/L Alkaline Phosphatase (46-116) U/L Troponin I (0.000-0.056) ng/mL C-Reactive Protein (0.0-0.9) mg/dL Total Protein (6.4-8.2) g/dL Albumin (3.40-5.00) g/dL Specimen Type Urine Color (YELLOW) Urine Appearance (CLEAR) Urine pH (5.0-9.0) Ur Specific Jordan (1.005-1.030) Urine Protein (NEGATIVE) mg/dL Urine Glucose (UA) (NEGATIVE) mg/dL Urine Ketones (NEGATIVE) mg/dL Urine Occult Blood (NEGATIVE) Urine Nitrite (NEGATIVE) Urine Bilirubin (NEGATIVE) Urine Urobilinogen (0.2-1.0) E.U./dL Ur Leukocyte Esterase (NEGATIVE) Urine RBC (0-5) /HPF Urine WBC (0-5) /HPF Ur Epithelial Cells /LPF Urine Bacteria (NONE TO FEW) /HPF Urine Mucus (NEGATIVE) /LPF SARS CoV-2 RNA Rapid MOSES Negative (NEGATIVE) Meds: Medications Generic Name Dose Route Start Last Admin Trade Name Freq PRN Reason Stop Dose Admin Sodium Chloride 10 ml 10/26/20 08:52 10/26/20 09:28 Saline Flush FLUSH 10 ml Q8HR PRN Administration keep vein open Discontinued Medications Generic Name Dose Route Start Last Admin Trade Name Freq PRN Reason Stop Dose Admin Sodium Chloride 500 mls @ 999 mls/hr 10/26/20 10:04 10/26/20 10:18 Normal Saline IV 10/26/20 10:34 999 mls/hr .BOLUS ONE Administration Metoprolol Tartrate 5 mg 10/26/20 09:05 10/26/20 09:10 Lopressor IVPUSH 10/26/20 09:06 5 mg ONETIME ONE Administration Metoprolol Tartrate Confirm 10/26/20 09:21 10/26/20 09:28 Lopressor Administered 10/26/20 09:22 Not Given Dose 5 mg .ROUTE .STK-MED ONE Metoprolol Tartrate 5 mg 10/26/20 09:26 10/26/20 09:24 Lopressor IVPUSH 10/26/20 09:27 5 mg ONETIME ONE Administration Metoprolol Tartrate 50 mg 10/26/20 10:05 Lopressor PO 10/26/20 10:06 ONETIME ONE - Re-Assessments/Exams Free Text/Narrative Re-Assessment/Exam: 10/26/20 09:39 Labs look mostly good. Creatinine is slightly elevated compared with previous. Glucose is 258. Patient denies any diabetes or previous high glucose problems. Will check Hga1c now too. After two rounds of Metoprolol 5 mg IVP heart rate is mid 90's mostly. 10/26/20 10:[address] Jack and Davion Warren, [employer]. We will give another Metoprolol IVP and 50 po along with NS 500 IV. They will admit for treatment. 10/26/20 10:24 I discussed treatment plan with patient and his . Just before we were going to give the metoprolol IVP and po, his heart rate dropped to 45. He felt better, more normal, then. I visited with him and watched the rate. It dropped to a low of 35 briefly and then back to 40's for a couple minutes then slowly back up to 90's and 110's again. He was alert and felt better with the low rate. We will hold the additional metoprolol for now. A nasal covid swab was performed while heart rate was low and fluids were started. 10/26/20 11:09 Discussed additional information with Davion Warren and patient admitted to inpatient in stable condition. HR was stabilizing mostly in the 90's at time of admission. CXR shows no acute pathology. Departure - Departure Time of Disposition: 11:01 Disposition: Admitted As Inpatient 67 Condition: Good Clinical Impression: Atrial fibrillation with RVR - Discharge Information Referrals: Imani Jack MD [Primary Care Provider] - Forms: ED Department Discharge Sepsis Event Note (ED) - Evaluation Sepsis Screening Result: No Definite Risk - Focused Exam Vital Signs: Vital Signs Temp Pulse Pulse Resp BP BP Pulse Ox 10/26/20 10:45 98 11 L 109/59 L 98 10/26/20 10:30 98 13 104/73 97 10/26/20 10:15 41 L 13 101/46 L 97 10/26/20 10:00 105 H 17 138/83 98 10/26/20 09:50 95 11 L 112/68 96 10/26/20 09:30 93 14 123/67 96 10/26/20 09:24 123 H 129/68 10/26/20 09:15 114 H 20 128/68 98 10/26/20 09:10 152 H 119/69 10/26/20 09:00 143 H 16 119/69 98 10/26/20 08:45 96.2 F L 150 H 21 H 132/74 99 - My Orders Last 24 Hours: My Active Orders 10/26/20 08:52 Peripheral IV Care [RC] . DIRECTED Sodium Chloride 0.9% [Saline Flush] 10 ml FLUSH Q8HR PRN Peripheral IV Insertion Adult [OM.PC] Routine 10/26/20 09:00 EKG 12 Lead [EK] Stat 10/26/20 09:01 EKG Documentation Completion [RC] ASDIRECTED 10/26/20 10:58 Patient Status [ADT] Routine - Assessment/Plan Last 24 Hours: My Active Orders 10/26/20 08:52 Peripheral IV Care [RC] . DIRECTED Sodium Chloride 0.9% [Saline Flush] 10 ml FLUSH Q8HR PRN Peripheral IV Insertion Adult [OM.PC] Routine 10/26/20 09:00 EKG 12 Lead [EK] Stat 10/26/20 09:01 EKG Documentation Completion [RC] ASDIRECTED 10/26/20 10:58 Patient Status [ADT] Routine
[2020-10-26 09:34] LABS: ANION GAP 14.3 mmol/L (5-15)
[2020-10-26 09:52] LABS: HEMOGLOBIN A1C 5.3 % (4.3-5.7)
[2020-10-26] MEDS ORDERED: Sodium Chloride 0.9% 500 ML IV ONE (10:04)
[2020-10-26] MEDS ORDERED: Metoprolol Tartrate 50 MG Tab PO ONE ×3 (10:05→21:00)
--- NOTE | 2020-10-26 11:03 | CR ---
[id number] RAD/RAD Chest PA or AP 1V EXAM: FRONTAL CHEST INDICATION: LEUKOCYTOSIS. COMPARISON: April 11, 2020. DISCUSSION: Linear bibasilar opacities are similar to prior studies and most consistent with scarring. No definite acute infiltrates. Normal heart size. No effusions. IMPRESSION: 1. No acute findings. Gio Cano MD 10/26/20 1711 Thank you for allowing us to participate in the care of your patient.
--- NOTE | 2020-10-26 11:22 | PCM.HP.2 ---
H&P History of Present Illness - General Date of Service: 10/26/20 Admit Problem/Dx: Admission Diagnosis/Problem Admission Diagnosis/Problem Tachycardia Source of Information: Patient, RN Left Chest Pain Score (Numeric/FACES): 2 - Related Data Allergies/Adverse Reactions: Allergies Allergy/AdvReac Type Severity Reaction Status Date / Time No Known Drug Allergies Allergy Cannot Verified 10/26/20 08:58 Remember Home Medications: Home Meds Simvastatin [Zocor] 20 mg PO BEDTIME 01/05/17 [History] Rivaroxaban [Xarelto] 20 mg PO DAILY@1800 01/09/19 [History] Tamsulosin HCl [Flomax] 0.4 mg PO BEDTIME 01/09/19 [History] OLANZapine [Olanzapine] 5 mg PO BEDTIME 02/25/20 [History] Omeprazole 20 mg PO DAILY PRN 02/25/20 [History] Finasteride 5 mg PO BEDTIME 03/03/20 [History] polyethylene glycoL 3350 [MiraLAX] 17 gm PO DAILY PRN 03/03/20 [History] traZODone HCl [Trazodone HCl] 100 mg PO BEDTIME 03/03/20 [History] Calcium Carbonate [Tums] 1 tab PO QID PRN 10/26/20 [History] Clindamycin Phosphate [Cleocin T 1% Lotion] 1 applic TOP BID PRN 10/26/20 [History] Cyclobenzaprine [Flexeril] 10 mg PO TID PRN 10/26/20 [History] Sennosides/Docusate Sodium [Senna-S] 2 tab PO BEDTIME 10/26/20 [History] Vit A/Vit C/Vit E/Zinc/Copper [Preservision] 1 each PO DAILY 10/26/20 [History] Acetaminophen 1,000 mg PO Q8H PRN #120 tab 10/27/20 [Rx] Metoprolol Succinate 50 mg PO BID #60 tab.er.24h 10/27/20 [Rx] oxyCODONE 5 mg PO BEDTIME PRN 10/27/20 [History] Past Medical History HEENT History: Reports: Impaired Vision Cardiovascular History: Reports: Afib, High Cholesterol, Hypertension Respiratory History: Reports: Other (See Below) Other Respiratory History: nodule left lung Gastrointestinal History: Reports: GERD Genitourinary History: Reports: BPH, Renal Calculus Musculoskeletal History: Reports: Arthritis Neurological History: Reports: None Hematologic History: Reports: Anticoagulation Therapy, Blood Transfusion(s) Oncologic (Cancer) History: Reports: Other (See Below) Other Oncologic History: skin lesion removal - Past Surgical History HEENT Surgical History: Reports: Tonsillectomy Cardiovascular Surgical History: Reports: None GI Surgical History: Reports: Appendectomy, Colonoscopy Male Surgical History: Reports: None Musculoskeletal Surgical History: Reports: Hip Replacement - Past Imaging History Past Imaging History: Reports: CAT Scan, Xray Social & Family History - Family History Family Medical History: No Pertinent Family History - Tobacco Use Tobacco Use Status *Q: Former Tobacco User Used Tobacco, but Quit: Yes Month/Year Tobacco Last Used: quit in the s - Caffeine Use Caffeine Use: Reports: Coffee, Soda Other Caffeine Use: decaf - Recreational Drug Use Recreational Drug Use: No H&P Review of Systems - Review of Systems: Review Of Systems: See Below General: Reports: Fatigue HEENT: Reports: Rhinitis Pulmonary: Denies: Shortness of Breath, Wheezing, Pleuritic Chest Pain, Cough, Sputum, Hemoptysis Cardiovascular: Reports: Palpitations. Denies: Chest Pain (chest pain releived ) Gastrointestinal: Reports: No Symptoms Genitourinary: Reports: Flank Pain (mild left flank pain ) Musculoskeletal: Reports: Back Pain Skin: Reports: No Symptoms Psychiatric: Reports: No Symptoms Neurological: Reports: No Symptoms Hematologic/Lymphatic: Reports: Easy Bleeding Immunologic: Reports: No Symptoms Exam - Exam Exam: See Below - Vital Signs Vital Signs: Last Vital Signs Temp 96.2 F L 10/26/20 08:45 Pulse 98 10/26/20 10:45 Resp 11 L 10/26/20 10:45 BP 109/59 L 10/26/20 10:45 Pulse Ox 98 10/26/20 10:45 Weight: 210 lb - Exam Quality Assessment: No: Supplemental Oxygen General: Alert, Oriented, Cooperative. No: Mild Distress HEENT: Conjunctiva Clear, Hearing Intact. No: Mucosa Moist & Kevin Neck: Supple Lungs: Clear to Auscultation, Normal Respiratory Effort. No: Crackles, Rhonchi Cardiovascular: Regular Rhythm, Irregular Rhythm, Tachycardia. No: Regular Rate GI/Abdominal Exam: Normal Bowel Sounds, Soft Rectal (Males) Exam: BPH Back Exam: CVA Tenderness (L), Paraspinal Tenderness. No: CVA Tenderness (R) Extremities: Non-Tender Peripheral Pulses: 2+: Radial (R), 3+: Radial (L) Skin: Warm, Dry, Intact Neurological: Sensation Intact. No: Focal Deficit Neuro Extensive - Mental Status: Alert, Oriented x3, Normal Mood/Affect Neuro Extensive - Motor, Sensory, Reflexes: CN II-XII Intact Psychiatric: Alert, Normal Affect, Normal Mood - Patient Data Lab Results Last 24 hrs: Laboratory Results - last 24 hr 10/26/20 10/26/20 10/26/20 Range/Units 08:50 08:50 08:50 WBC 10.21 H (5.00-10.00) 10^3/uL RBC 4.68 (4.50-6.00) 10^6/uL Hgb 13.3 (13.0-17.0) g/dL Hct 42.2 (40.0-52.0) % MCV 90.2 (82.0-92.0) fL MCH 28.4 (27.0-31.0) pg MCHC 31.5 L (32.0-36.0) g/dL RDW 13.4 (11.5-14.5) % Plt Count 289 D (150-400) 10^3/uL MPV 11.6 H (7.4-10.4) fL Immature Gran % (Auto) 0.1 (0.0-5.0) % Neut % (Auto) 69.8 (50.0-70.0) % Lymph % (Auto) 20.1 (20.0-40.0) % Horry % (Auto) 6.2 (2.0-8.0) % Eos % (Auto) 3.3 H (1.0-3.0) % Baso % (Auto) 0.5 (0.0-1.0) % Neut # (Auto) 7.13 H (2.50-7.00) 10^3/uL Lymph # (Auto) 2.05 (1.00-4.00) 10^3/uL Horry # (Auto) 0.63 (0.10-0.80) 10^3/uL Eos # (Auto) 0.34 H (0.10-0.30) 10^3/uL Baso # (Auto) 0.05 (0.00-0.10) 10^3/uL Immature Gran # (Auto) 0.01 (0.00-0.50) 10^3/uL Sodium 140 (136-145) mmol/L Potassium 3.9 (3.5-5.1) mmol/L Chloride 103 (98-107) mmol/L Carbon Dioxide 26.6 (21.0-32.0) mmol/L Anion Gap 14.3 (5-15) mmol/L BUN 17 (7-18) mg/dL Creatinine 1.18 H (0.51-1.17) mg/dL Est Cr Clr Drug Dosing 59.99 mL/min Estimated GFR (MDRD) 60 mL/min Glucose 258 H (70-140) mg/dL Hemoglobin A1c 5.3 (4.3-5.7) % Lactic Acid (0.4-2.0) mmol/L Calcium 9.1 (8.7-10.3) mg/dL Magnesium (1.8-2.4) mg/dL Total Bilirubin 0.5 (0.2-1.0) mg/dL AST 17 (15-37) U/L ALT 23 (14-63) U/L Alkaline Phosphatase 152 H (46-116) U/L Troponin I 0.028 (0.000-0.056) ng/mL C-Reactive Protein (0.0-0.9) mg/dL Total Protein 6.9 (6.4-8.2) g/dL Albumin 3.40 (3.40-5.00) g/dL Specimen Type Urine Color (YELLOW) Urine Appearance (CLEAR) Urine pH (5.0-9.0) Ur Specific Left Hand (1.005-1.030) Urine Protein (NEGATIVE) mg/dL Urine Glucose (UA) (NEGATIVE) mg/dL Urine Ketones (NEGATIVE) mg/dL Urine Occult Blood (NEGATIVE) Urine Nitrite (NEGATIVE) Urine Bilirubin (NEGATIVE) Urine Urobilinogen (0.2-1.0) E.U./dL Ur Leukocyte Esterase (NEGATIVE) Urine RBC (0-5) /HPF Urine WBC (0-5) /HPF Ur Epithelial Cells /LPF Urine Bacteria (NONE TO FEW) /HPF Urine Mucus (NEGATIVE) /LPF SARS CoV-2 RNA Rapid MOSES (NEGATIVE) 02/09/0310/26/20 10/26/20 Range/Units 08:50 08:50 10:05 WBC (5.00-10.00) 10^3/uL RBC (4.50-6.00) 10^6/uL Hgb (13.0-17.0) g/dL Hct (40.0-52.0) % MCV (82.0-92.0) fL MCH (27.0-31.0) pg MCHC (32.0-36.0) g/dL RDW (11.5-14.5) % Plt Count (150-400) 10^3/uL MPV (7.4-10.4) fL Immature Gran % (Auto) (0.0-5.0) % Neut % (Auto) (50.0-70.0) % Lymph % (Auto) (20.0-40.0) % Horry % (Auto) (2.0-8.0) % Eos % (Auto) (1.0-3.0) % Baso % (Auto) (0.0-1.0) % Neut # (Auto) (2.50-7.00) 10^3/uL Lymph # (Auto) (1.00-4.00) 10^3/uL Horry # (Auto) (0.10-0.80) 10^3/uL Eos # (Auto) (0.10-0.30) 10^3/uL Baso # (Auto) (0.00-0.10) 10^3/uL Immature Gran # (Auto) (0.00-0.50) 10^3/uL Sodium (136-145) mmol/L Potassium (3.5-5.1) mmol/L Chloride (98-107) mmol/L Carbon Dioxide (21.0-32.0) mmol/L Anion Gap (5-15) mmol/L BUN (7-18) mg/dL Creatinine (0.51-1.17) mg/dL Est Cr Clr Drug Dosing mL/min Estimated GFR (MDRD) mL/min Glucose (70-140) mg/dL Hemoglobin A1c (4.3-5.7) % Lactic Acid 3.0 H (0.4-2.0) mmol/L Calcium (8.7-10.3) mg/dL Magnesium 2.3 (1.8-2.4) mg/dL Total Bilirubin (0.2-1.0) mg/dL AST (15-37) U/L ALT (14-63) U/L Alkaline Phosphatase (46-116) U/L Troponin I (0.000-0.056) ng/mL C-Reactive Protein 1.1 H (0.0-0.9) mg/dL Total Protein (6.4-8.2) g/dL Albumin (3.40-5.00) g/dL Specimen Type Urincc Urine Color Yellow (YELLOW) Urine Appearance Clear (CLEAR) Urine pH 7.0 (5.0-9.0) Ur Specific Left Hand 1.025 (1.005-1.030) Urine Protein Trace H (NEGATIVE) mg/dL Urine Glucose (UA) Negative (NEGATIVE) mg/dL Urine Ketones Trace H (NEGATIVE) mg/dL Urine Occult Blood Trace-intact H (NEGATIVE) Urine Nitrite Negative (NEGATIVE) Urine Bilirubin Negative (NEGATIVE) Urine Urobilinogen 0.2 (0.2-1.0) E.U./dL Ur Leukocyte Esterase Negative (NEGATIVE) Urine RBC 0-5 (0-5) /HPF Urine WBC 5-10 H (0-5) /HPF Ur Epithelial Cells Few /LPF Urine Bacteria Rare (NONE TO FEW) /HPF Urine Mucus Rare H (NEGATIVE) /LPF SARS CoV-2 RNA Rapid MOSES (NEGATIVE) 10/26/20 Range/Units 10:16 WBC (5.00-10.00) 10^3/uL RBC (4.50-6.00) 10^6/uL Hgb (13.0-17.0) g/dL Hct (40.0-52.0) % MCV (82.0-92.0) fL MCH (27.0-31.0) pg MCHC (32.0-36.0) g/dL RDW (11.5-14.5) % Plt Count (150-400) 10^3/uL MPV (7.4-10.4) fL Immature Gran % (Auto) (0.0-5.0) % Neut % (Auto) (50.0-70.0) % Lymph % (Auto) (20.0-40.0) % Horry % (Auto) (2.0-8.0) % Eos % (Auto) (1.0-3.0) % Baso % (Auto) (0.0-1.0) % Neut # (Auto) (2.50-7.00) 10^3/uL Lymph # (Auto) (1.00-4.00) 10^3/uL Horry # (Auto) (0.10-0.80) 10^3/uL Eos # (Auto) (0.10-0.30) 10^3/uL Baso # (Auto) (0.00-0.10) 10^3/uL Immature Gran # (Auto) (0.00-0.50) 10^3/uL Sodium (136-145) mmol/L Potassium (3.5-5.1) mmol/L Chloride (98-107) mmol/L Carbon Dioxide (21.0-32.0) mmol/L Anion Gap (5-15) mmol/L BUN (7-18) mg/dL Creatinine (0.51-1.17) mg/dL Est Cr Clr Drug Dosing mL/min Estimated GFR (MDRD) mL/min Glucose (70-140) mg/dL Hemoglobin A1c (4.3-5.7) % Lactic Acid (0.4-2.0) mmol/L Calcium (8.7-10.3) mg/dL Magnesium (1.8-2.4) mg/dL Total Bilirubin (0.2-1.0) mg/dL AST (15-37) U/L ALT (14-63) U/L Alkaline Phosphatase (46-116) U/L Troponin I (0.000-0.056) ng/mL C-Reactive Protein (0.0-0.9) mg/dL Total Protein (6.4-8.2) g/dL Albumin (3.40-5.00) g/dL Specimen Type Urine Color (YELLOW) Urine Appearance (CLEAR) Urine pH (5.0-9.0) Ur Specific Left Hand (1.005-1.030) Urine Protein (NEGATIVE) mg/dL Urine Glucose (UA) (NEGATIVE) mg/dL Urine Ketones (NEGATIVE) mg/dL Urine Occult Blood (NEGATIVE) Urine Nitrite (NEGATIVE) Urine Bilirubin (NEGATIVE) Urine Urobilinogen (0.2-1.0) E.U./dL Ur Leukocyte Esterase (NEGATIVE) Urine RBC (0-5) /HPF Urine WBC (0-5) /HPF Ur Epithelial Cells /LPF Urine Bacteria (NONE TO FEW) /HPF Urine Mucus (NEGATIVE) /LPF SARS CoV-2 RNA Rapid MOSES Negative (NEGATIVE) Result Diagrams: 10/27/20 07:10 10/27/20 07:10 Sepsis Event Note - Evaluation Sepsis Screening Result: No Definite Risk - Focused Exam Vital Signs: Vital Signs Temp Pulse Pulse Resp BP BP Pulse Ox 10/26/20 10:45 98 11 L 109/59 L 98 10/26/20 10:30 98 13 104/73 97 10/26/20 10:15 41 L 13 101/46 L 97 10/26/20 10:00 105 H 17 138/83 98 10/26/20 09:50 95 11 L 112/68 96 10/26/20 09:30 93 14 123/67 96 10/26/20 09:24 123 H 129/68 10/26/20 09:15 114 H 20 128/68 98 10/26/20 09:10 152 H 119/69 10/26/20 09:00 143 H 16 119/69 98 10/26/20 08:45 96.2 F L 150 H 21 H 132/74 99 Problem List Initiated/Reviewed/Updated: Yes Orders Last 24hrs: Active Orders 24 hr Category Date Time Status Patient Status [ADT] Routine ADT 10/26/20 10:58 Active EKG Documentation Completion [RC] ASDIRECTED Care 10/26/20 09:01 Active Peripheral IV Care [RC] . DIRECTED Care 10/26/20 08:52 Active Sodium Chloride 0.9% [Saline Flush] Med 10/26/20 08:52 Active 10 ml FLUSH Q8HR PRN Peripheral IV Insertion Adult [OM.PC] Routine Oth 10/26/20 08:52 Ordered EKG 12 Lead [EK] Stat Ther 10/26/20 09:00 Ordered Medication Orders Sodium Chloride (Saline Flush) 10 ml FLUSH Q8HR PRN PRN Reason: keep vein open Last Admin: 10/26/20 09:28 Dose: 10 ml Documented by: Admin: 10/26/20 09:14 Dose: 10 ml Documented by: Admin: 10/26/20 09:13 Dose: 10 ml Documented by: KIARA Assessment/Plan Comment:: History of present illness Esequiel is a 79-year-old male who was admitted into inpatient status due to breakthrough atrial fibrillation with RVR. Patient presented to the ED this morning complaining of a "racing heart". 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 Upon arrival to the ED his chest pain had resolved. Patient has had atrial fibrillation for ~3 years and is on factor Xa inhibitor of Xarelto. ECHO 10/04; EF 70%, Mildly increased left ventricular wall thickness. Normal left ventricular systolic function. There are no left ventricular regional wall motion abnormalities. Grade 2 left ventricular diastolic dysfunction. Left Atr ium: [id number] dilated left atrium. ED course; on arrival noted atrial fibrillation with RVR 150s blood pressure 132/74, initial lactate 3.0, 500 mL normal saline given, 2 doses of metoprolol tartrate 5mg IVP heart rate responded favorably never he did briefly drop into the 35-45 likely [id number] variability however very tersely without symptoms. Upon arriving to the floor heart rate 90s-115. No longer had chest pains. Blood glucose 258 however normal hemoglobin A1c, creatinine slightly elevated likely prerenal. CXR showed no acute pathology. Admits only drinking 1 cup of water per day or less Primary hospital problems --Atrial fibrillation, paroxysmal with RVR, [id number] 3, factor Xa inhibitor, control strategy during this admission, possibly dehydration induced Chronic problems Essential hypertension Pure hypercholesterolemia Atherosclerosis Esophageal reflux Benign prostatic hyperplasia, Calcified granuloma of lung Chronic rhinitis Constipation S/P decompression lumbar spine, f/u neurosurgeon as scheduled on 11/14/20. Disposition/overall plan --Admitted to inpatient status telemetry patient may need to inpatient days to fully hydrate and medication in hopes to regain NSR --will need improved rate control strategy during this acute hospitalization, will consider given Toprol twice a day since 18 hour half-life likely upon discharge --Will consider adding CCB drip PO if monotherapy beta-danyell fails --IV fluids 90 mL/h --Repeat lactate 1400 - Mortality Measure Prognosis:: Good
[2020-10-26] MEDS ORDERED: Omeprazole 20 MG Cap.CR PO PRN (13:04)
[2020-10-26] MEDS ORDERED: Polyethylene Glycol 3350 Powder 17 GM Packet PO PRN (13:18)
[2020-10-26] MEDS: Sodium Chloride 0.9% 1,000 ML IV SCH (14:10)
[2020-10-26] MEDS ORDERED: Acetaminophen 500 MG Tab PO PRN (17:56)
[2020-10-26] MEDS ORDERED: oxyCODONE 5 MG Tab PO PRN (17:57)
[2020-10-26] MEDS ORDERED: Rivaroxaban 10 MG Tab PO SCH (18:00)
[2020-10-26] MEDS ORDERED: traZODone 50 MG Tab PO SCH (21:00)
[2020-10-26] MEDS ORDERED: Finasteride 5 MG Tab PO SCH (21:00)
[2020-10-26] MEDS ORDERED: OLANZapine 5 MG Tab PO SCH (21:00)
[2020-10-26] MEDS ORDERED: Tamsulosin 0.4 MG Cap.ER PO SCH (21:00)
[2020-10-26] MEDS ORDERED: Simvastatin 10 MG Tab PO SCH (21:00)
[2020-10-27] MEDS: Sodium Chloride 0.9% 1,000 ML IV SCH (02:30)
[2020-10-27 08:03] LABS: ANION GAP 12.7 mmol/L (5-15); CHLORIDE,CL 109 mmol/L (98-107); SODIUM,NA 142 mmol/L (136-145)
[2020-10-27] MEDS ORDERED: Metoprolol Succinate 50 MG Tab.ER PO SCH (09:00)
--- NOTE | 2020-10-27 10:47 | PCM.DCSUM1 ---
Discharge Summary - Discharge Data Discharge Date: 10/27/20 Discharge Disposition: Home, Self-Care 01 Condition: Poor - Referral to Home Health Primary Care Physician: Imani Jack MD - Patient Instructions Diet: Drink 8-10+ Glasses/Day Activity: No Strenuous Activities, Rest and Relax Today Driving: May Drive Today Showering/Bathing: May Shower Other/Special Instructions: Report if any dizziness, vomiting, fast heart rate, palpitations and/or chest pain/lightheadedness. Avoid NSAIDs such as Advil, diclofenac sodium, ibuprofen/Motrin or Aleve. You can take Tyleonol 1000mg by mouth every 8 hours for pain. You can get Voltaren cream [id number] for your back pain. You can take your oxycodone IR for breakthrough pain. To help prevent constipation while taking oxycodone. 3 whole prunes at breakfast. Continue with with senna S. Increase water as discussed. Take whole grains and fiber in diet. - Discharge Plan *PRESCRIPTION DRUG MONITORING PROGRAM REVIEWED*: Yes (in [facility]) *COPY OF PRESCRIPTION DRUG MONITORING REPORT IN PATIENT RAY: Yes Home Medications: Home Meds Simvastatin [Zocor] 20 mg PO BEDTIME 01/05/17 [History] Rivaroxaban [Xarelto] 20 mg PO DAILY@1800 01/09/19 [History] Tamsulosin HCl [Flomax] 0.4 mg PO BEDTIME 01/09/19 [History] OLANZapine [Olanzapine] 5 mg PO BEDTIME 02/25/20 [History] Omeprazole 20 mg PO DAILY PRN 02/25/20 [History] Finasteride 5 mg PO BEDTIME 03/03/20 [History] polyethylene glycoL 3350 [MiraLAX] 17 gm PO DAILY PRN 03/03/20 [History] traZODone HCl [Trazodone HCl] 100 mg PO BEDTIME 03/03/20 [History] Calcium Carbonate [Tums] 1 tab PO QID PRN 10/26/20 [History] Clindamycin Phosphate [Cleocin T 1% Lotion] 1 applic TOP BID PRN 10/26/20 [History] Cyclobenzaprine [Flexeril] 10 mg PO TID PRN 10/26/20 [History] Sennosides/Docusate Sodium [Senna-S] 2 tab PO BEDTIME 10/26/20 [History] Vit A/Vit C/Vit E/Zinc/Copper [Preservision] 1 each PO DAILY 10/26/20 [History] Acetaminophen 1,000 mg PO Q8H PRN #120 tab 10/27/20 [Rx] Metoprolol Succinate 50 mg PO BID #60 tab.er.24h 10/27/20 [Rx] oxyCODONE 5 mg PO BEDTIME PRN 10/27/20 [History] Referrals: Imani Jack MD [Primary Care Provider] - (Thursday [facility] (previously scheduled)) - Discharge Summary/Plan Comment DC Time >30 min.: No Discharge Summary/Plan Comment: Final diagnosis Atrial fibrillation, paroxysmal, CVR [id number] 3, factor Xa inhibitor, increased beta-danyell for rate control Dehydration, much improved Chronic problems Essential hypertension, was on Metoprolol Tartrate Pure hypercholesterolemia Atherosclerosis Esophageal reflux Benign prostatic hyperplasia, Calcified granuloma of lung Chronic rhinitis Constipation S/P decompression lumbar spine, f/u neurosurgeon as scheduled on 11/14/20. History summary Esequiel is a 79-year-old male who was admitted into inpatient status due to breakthrough atrial fibrillation with RVR. Patient presented to the ED this morning complaining of a "racing heart". 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 Upon arrival to the ED his chest pain had resolved. Patient has had atrial fibrillation for ~3 years and is on factor Xa inhibitor of Xarelto. ED course; on arrival noted atrial fibrillation with RVR 150s blood pressure 132/74, initial lactate 3.0, 500 mL normal saline given, 2 doses of metoprolol tartrate 5mg IVP heart rate responded favorably never he did briefly drop into the 35-45 likely [id number] variability however very tersely without symptoms. Upon arriving to the floor heart rate 90s-115. No longer had chest pains. Blood glucose 258 however normal hemoglobin A1c, creatinine slightly elevated likely prerenal. CXR showed no acute pathology. Admits only drinking less than a cup of water a day ECHO 10/04; EF 70%, Mildly increased left ventricular wall thickness. Normal left ventricular systolic function. There are no left ventricular regional wall motion abnormalities. Grade 2 left ventricular diastolic dysfunction. Left Atrium: [id number]-[id number] dilated left atrium. Hospital course Esequiel had a favorable hospital course without adverse reactions or side effects to any treatments and/or medications. This combined metoprolol IV push in the ED along with his normal p.o. succinate along with IV fluid boluses he converted to a normal sinus rhythm sinus bradycardia 2 to 3 hours after admission. He remained in sinus rhythm during his hospital stay. His troponin was below threshold, lactate was repeated after hydration and was also normal. He had no fever no vomiting however he was quite dry on admission. Normal blood glucose morning of admission Medication changes/adjustments upon discharge --Metoprolol succinate 50 mg p.o. twice daily (increased from daily) --Continue diclofenac sodium--topical NSAIDs okay --Tylenol 1 g p.o. every 8 hours scheduled --Continue all other home meds Disposition --Although patient was initially admitted into inpatient status he exceedingly met all goals and responded favorably to all treatments, therefore he was discharged to self home care with close follow-up with Dr. Tori jansen on Thursday --He was given a brisk 6-minute walk test prior to discharge while on telemetry heart rate 80s regular Discharge instructions --Report if any dizziness, vomiting, fast heart rate, palpitations and/or chest pain/lightheadedness --Avoid all oral NSAIDs such as Advil, diclofenac sodium, ibuprofen/Motrin or Aleve --You can take Tyleonol 1000mg by mouth every 8 hours for pain. --You can get Voltaren cream [id number] for your back pain --You can take your oxycodone IR for breakthrough pain --To help prevent constipation while taking oxycodone 3 whole prunes at breakfast Continue with with senna S Increase water as discussed Take whole grains and fiber in diet. - General Info Functional Status: Reports: Pain Controlled, Tolerating Diet. Denies: Ambulating, New Symptoms - Review of Systems General: Denies: Fever, Weakness, Fatigue, Malaise HEENT: Reports: No Symptoms Pulmonary: Reports: No Symptoms Cardiovascular: Reports: No Symptoms Gastrointestinal: Reports: No Symptoms Genitourinary: Denies: Dysuria, Frequency, Burning, Pain, Retention Musculoskeletal: Reports: Back Pain Skin: Reports: No Symptoms Neurological: Reports: No Symptoms Psychiatric: Reports: No Symptoms - Patient Data Vitals - Most Recent: Last Vital Signs Temp 97.9 F 10/27/20 06:52 Pulse 57 L 10/27/20 06:52 Resp 16 10/27/20 06:52 BP 128/48 L 10/27/20 06:52 Pulse Ox 95 10/27/20 06:52 Weight - Most Recent: 211 lb I&O - Last 24 hours: Intake & Output 10/26/20 10/27/20 10/27/20 22:59 06:59 14:59 Intake Total 893 610 4903 Output Total 350 200 Balance 170 -100 1400 Lab Results - Last 24 hrs: Laboratory Results - last 24 hr 10/26/20 10/26/20 10/26/20 Range/Units 08:30 08:50 10:16 WBC (5.00-10.00) 10^3/uL RBC (4.50-6.00) 10^6/uL Hgb (13.0-17.0) g/dL Hct (40.0-52.0) % MCV (82.0-92.0) fL MCH (27.0-31.0) pg MCHC (32.0-36.0) g/dL RDW (11.5-14.5) % Plt Count (150-400) 10^3/uL MPV (7.4-10.4) fL Immature Gran % (Auto) (0.0-5.0) % Neut % (Auto) (50.0-70.0) % Lymph % (Auto) (20.0-40.0) % [place] % (Auto) (2.0-8.0) % Eos % (Auto) (1.0-3.0) % Baso % (Auto) (0.0-1.0) % Neut # (Auto) (2.50-7.00) 10^3/uL Lymph # (Auto) (1.00-4.00) 10^3/uL [place] # (Auto) (0.10-0.80) 10^3/uL Eos # (Auto) (0.10-0.30) 10^3/uL Baso # (Auto) (0.00-0.10) 10^3/uL Immature Gran # (Auto) (0.00-0.50) 10^3/uL Sodium (136-145) mmol/L Potassium (3.5-5.1) mmol/L Chloride (98-107) mmol/L Carbon Dioxide (21.0-32.0) mmol/L Anion Gap (5-15) mmol/L BUN (7-18) mg/dL Creatinine (0.51-1.17) mg/dL Est Cr Clr Drug Dosing mL/min Estimated GFR (MDRD) mL/min Glucose (70-140) mg/dL Lactic Acid (0.4-2.0) mmol/L Calcium (8.7-10.3) mg/dL Magnesium 2.3 (1.8-2.4) mg/dL Troponin I (0.000-0.056) ng/mL C-Reactive Protein 1.1 H (0.0-0.9) mg/dL TSH, Ultra Sensitive 1.799 (0.340-4.820) uIU/mL SARS CoV-2 RNA Rapid MOSES Negative (NEGATIVE) 10/26/20 10/26/20 10/27/20 Range/Units 14:00 14:00 07:10 WBC (5.00-10.00) 10^3/uL RBC (4.50-6.00) 10^6/uL Hgb (13.0-17.0) g/dL Hct (40.0-52.0) % MCV (82.0-92.0) fL MCH (27.0-31.0) pg MCHC (32.0-36.0) g/dL RDW (11.5-14.5) % Plt Count (150-400) 10^3/uL MPV (7.4-10.4) fL Immature Gran % (Auto) (0.0-5.0) % Neut % (Auto) (50.0-70.0) % Lymph % (Auto) (20.0-40.0) % [place] % (Auto) (2.0-8.0) % Eos % (Auto) (1.0-3.0) % Baso % (Auto) (0.0-1.0) % Neut # (Auto) (2.50-7.00) 10^3/uL Lymph # (Auto) (1.00-4.00) 10^3/uL [place] # (Auto) (0.10-0.80) 10^3/uL Eos # (Auto) (0.10-0.30) 10^3/uL Baso # (Auto) (0.00-0.10) 10^3/uL Immature Gran # (Auto) (0.00-0.50) 10^3/uL Sodium 142 (136-145) mmol/L Potassium 4.1 (3.5-5.1) mmol/L Chloride 109 H (98-107) mmol/L Carbon Dioxide 24.4 (21.0-32.0) mmol/L Anion Gap 12.7 (5-15) mmol/L BUN 19 H (7-18) mg/dL Creatinine 1.02 (0.51-1.17) mg/dL Est Cr Clr Drug Dosing 69.40 mL/min Estimated GFR (MDRD) > 60 mL/min Glucose 94 (70-140) mg/dL Lactic Acid 1.0 (0.4-2.0) mmol/L Calcium 8.2 L (8.7-10.3) mg/dL Magnesium (1.8-2.4) mg/dL Troponin I 0.045 (0.000-0.056) ng/mL C-Reactive Protein (0.0-0.9) mg/dL TSH, Ultra Sensitive (0.340-4.820) uIU/mL SARS CoV-2 RNA Rapid MOSES (NEGATIVE) 10/27/20 Range/Units 07:10 WBC 6.65 (5.00-10.00) 10^3/uL RBC 3.74 L (4.50-6.00) 10^6/uL Hgb 11.1 L D (13.0-17.0) g/dL Hct 33.7 L (40.0-52.0) % MCV 90.1 (82.0-92.0) fL MCH 29.7 (27.0-31.0) pg MCHC 32.9 (32.0-36.0) g/dL RDW 13.7 (11.5-14.5) % Plt Count 246 (150-400) 10^3/uL MPV 11.8 H (7.4-10.4) fL Immature Gran % (Auto) 0.2 (0.0-5.0) % Neut % (Auto) 52.4 (50.0-70.0) % Lymph % (Auto) 31.0 (20.0-40.0) % [place] % (Auto) 9.3 H (2.0-8.0) % Eos % (Auto) 6.3 H (1.0-3.0) % Baso % (Auto) 0.8 (0.0-1.0) % Neut # (Auto) 3.49 (2.50-7.00) 10^3/uL Lymph # (Auto) 2.06 (1.00-4.00) 10^3/uL [place] # (Auto) 0.62 (0.10-0.80) 10^3/uL Eos # (Auto) 0.42 H (0.10-0.30) 10^3/uL Baso # (Auto) 0.05 (0.00-0.10) 10^3/uL Immature Gran # (Auto) 0.01 (0.00-0.50) 10^3/uL Sodium (136-145) mmol/L Potassium (3.5-5.1) mmol/L Chloride (98-107) mmol/L Carbon Dioxide (21.0-32.0) mmol/L Anion Gap (5-15) mmol/L BUN (7-18) mg/dL Creatinine (0.51-1.17) mg/dL Est Cr Clr Drug Dosing mL/min Estimated GFR (MDRD) mL/min Glucose (70-140) mg/dL Lactic Acid (0.4-2.0) mmol/L Calcium (8.7-10.3) mg/dL Magnesium (1.8-2.4) mg/dL Troponin I (0.000-0.056) ng/mL C-Reactive Protein (0.0-0.9) mg/dL TSH, Ultra Sensitive (0.340-4.820) uIU/mL SARS CoV-2 RNA Rapid MOSES (NEGATIVE) Med Orders - Current: Current Medications Acetaminophen (Tylenol Extra Strength) 1,000 mg PO Q6H PRN PRN Reason: Pain Last Admin: 10/27/20 02:31 Dose: 1,000 mg Documented by: Finasteride (Proscar) 5 mg PO BEDTIME [facility] Last Admin: 10/26/20 20:50 Dose: 5 mg Documented by: Sodium Chloride (Normal Saline) 1,000 mls @ 90 mls/hr IV ASDIRECTED [facility] Last Admin: 10/27/20 02:30 Dose: 90 mls/hr Documented by: Metoprolol Succinate (Toprol Xl) 50 mg PO DAILY [facility] Olanzapine (Zyprexa) 5 mg PO BEDTIME [facility] Last Admin: 10/26/20 20:50 Dose: 5 mg Documented by: Omeprazole (Omeprazole) 20 mg PO DAILY PRN PRN Reason: stomach issues Oxycodone HCl (Oxycodone) 2.5 mg PO Q6H PRN PRN Reason: Severe Pain Last Admin: 10/26/20 20:50 Dose: 2.5 mg Documented by: Polyethylene Glycol (Miralax) 17 gm PO DAILY PRN PRN Reason: Constipation Rivaroxaban (Xarelto) 20 mg PO DAILY@1800 [facility] Last Admin: 10/26/20 17:43 Dose: 20 mg Documented by: Senna/Docusate Sodium (Senna Plus) 2 tab PO BEDTIME [facility] Last Admin: 10/26/20 20:50 Dose: 2 tab Documented by: Simvastatin (Zocor) 20 mg PO BEDTIME [facility] Last Admin: 10/26/20 20:50 Dose: 20 mg Documented by: Sodium Chloride (Saline Flush) 10 ml FLUSH Q8HR PRN PRN Reason: keep vein open Last Admin: 10/26/20 09:28 Dose: 10 ml Documented by: Tamsulosin HCl (Flomax) 0.4 mg PO BEDTIME [facility] Last Admin: 10/26/20 20:50 Dose: 0.4 mg Documented by: Trazodone HCl (Trazodone) 100 mg PO BEDTIME [facility] Last Admin: 10/26/20 20:50 Dose: 100 mg Documented by: Discontinued Medications Sodium Chloride (Normal Saline) 500 mls @ 999 mls/hr IV .BOLUS ONE Stop: 10/26/20 10:34 Last Admin: 10/26/20 10:18 Dose: 999 mls/hr Documented by: Metoprolol Tartrate (Lopressor) 5 mg IVPUSH ONETIME ONE Stop: 10/26/20 09:06 Last Admin: 10/26/20 09:10 Dose: 5 mg Documented by: Metoprolol Tartrate (Lopressor) Confirm Administered Dose 5 mg .ROUTE .STK-MED ONE Stop: 10/26/20 09:22 Last Admin: 10/26/20 09:28 Dose: Not Given Documented by: Metoprolol Tartrate (Lopressor) 5 mg IVPUSH ONETIME ONE Stop: 10/26/20 09:27 Last Admin: 10/26/20 09:24 Dose: 5 mg Documented by: Metoprolol Tartrate (Lopressor) 50 mg PO ONETIME ONE Stop: 10/26/20 10:06 Last Admin: 10/26/20 11:54 Dose: Not Given Documented by: Metoprolol Tartrate (Lopressor) 50 mg PO ONETIME ONE Stop: 10/26/20 21:01 - Exam Quality Assessment: Denies: Supplemental Oxygen General: Reports: Alert, Oriented Neck: Reports: Supple Lungs: Reports: Clear to Auscultation, Normal Respiratory Effort Cardiovascular: Reports: Regular Rate, Regular Rhythm, No Murmurs GI/Abdominal Exam: Normal Bowel Sounds, Soft, Non-Tender Back Exam: Denies: CVA Tenderness (L), CVA Tenderness (R) Skin: Reports: Warm, Dry, Intact Psy/Mental Status: Reports: Alert, Normal Affect, Normal Mood
[2020-10-27 11:22] VITALS: BP 139/50; PULSE 52
== END 2020-10-27 13:00 | disposition home or self-care (01) | DRG 310 ==
LOC: KA.ED 08:38 → KA.MS 10:58
PROVIDERS: ADMIT Nurse Practitioner Family; ATTEND Family Medicine
DX: I48.0 Paroxysmal atrial fibrillation (principal); I48.91 Unspecified atrial fibrillation; E86.0 Dehydration; Z79.01 Long term (current) use of anticoagulants; Z79.899 Other long term (current) drug therapy; I70.90 Unspecified atherosclerosis; H54.7 Unspecified visual loss; K59.00 Constipation, unspecified; J31.0 Chronic rhinitis; L92.8 Other granulomatous disorders of the skin and subcutaneous tissue; E78.00 Pure hypercholesterolemia, unspecified; E78.5 Hyperlipidemia, unspecified; I10 Essential (primary) hypertension; Z87.442 Personal history of urinary calculi; K21.9 Gastro-esophageal reflux disease without esophagitis; Z79.4 Long term (current) use of insulin; Z90.89 Acquired absence of other organs; Z90.49 Acquired absence of other specified parts of digestive tract; N40.0 Benign prostatic hyperplasia without lower urinary tract symptoms; M19.90 Unspecified osteoarthritis, unspecified site; Z87.891 Personal history of nicotine dependence; Z20.822 Contact with and (suspected) exposure to COVID-19
CPT/HCPCS: 36415; 71045; 80048; 80053; 81001; 83036; 83605; 83735; 84443; 84484; 85025; 86140; 93005; 96374; 99284; 99285-25; A9270-GY; J3490; J7030; U0002

== ENCOUNTER 2021-01-25 21:25 | Emergency (ER) | payer MEDICARE, OTHER ==
[2021-01-25] MEDS ORDERED: Sodium Chloride 0.9% 1,000 ML IV ONE (21:34)
[2021-01-25] MEDS ORDERED: Atropine 0.4 MG/ML SDV IVPUSH ONE (21:47)
[2021-01-25] MEDS ORDERED: Atropine 0.1 MG/ML 10 ML Syringe IVPUSH ONE (21:51)
[2021-01-25] MEDS ORDERED: Glucagon,Human Recombinant 1 MG Vial IVPUSH ONE ×3 (22:03→22:39)
[2021-01-25 22:14] LABS: ANION GAP 15.5 mmol/L (5-15)
[2021-01-25 22:35] VITALS: BP 149/48; PULSE 33
--- NOTE | 2021-01-25 22:39 | EDM.PDOC ---
ED HPI GENERAL MEDICAL PROBLEM - General Chief Complaint: Cardiovascular Problem Stated Complaint: BRADYCARDIA Time Seen by Provider: 01/25/21 21:30 Source of Information: Reports: Patient History Limitations: Reports: No Limitations - History of Present Illness INITIAL COMMENTS - FREE TEXT/NARRATIVE: Patient brought spouse to ER with N/V related to chemotherapy. We were getting ready to send her home after treatment and he asked if we would check is blood pressure because he was feeling a little lightheaded. His BP is okay but HR is in 30s. He is feeling fine except for the lightheadedness. The nurse asked if he would like to be evaluated in ER but he declined. He was observed on the ekg monitor for 20 minutes without improvement before he finally accepted ER evaluation. He takes Metoprolol succinate 50 mg bid and thinks he accidentally took a double dose tonight at 1800. He denies chest pain, dyspnea, weakness, diaphoresis, arm/neck/shoulder pain. - Related Data Allergies Allergy/AdvReac Type Severity Reaction Status Date / Time No Known Drug Allergies Allergy Cannot Verified 01/25/21 21:36 Remember Home Meds: Home Meds Simvastatin [Zocor] 20 mg PO BEDTIME 01/05/17 [History] Rivaroxaban [Xarelto] 20 mg PO DAILY@1800 01/09/19 [History] Tamsulosin HCl [Flomax] 0.4 mg PO BEDTIME 01/09/19 [History] OLANZapine [Olanzapine] 5 mg PO BEDTIME 02/25/20 [History] Omeprazole 20 mg PO DAILY PRN 02/25/20 [History] polyethylene glycoL 3350 [MiraLAX] 17 gm PO DAILY PRN 03/03/20 [History] traZODone HCl [Trazodone HCl] 100 mg PO BEDTIME 03/03/20 [History] Calcium Carbonate [Tums] 1 tab PO QID PRN 10/26/20 [History] Sennosides/Docusate Sodium [Senna-S] 2 tab PO BEDTIME 10/26/20 [History] Vit A/Vit C/Vit E/Zinc/Copper [Preservision] 1 each PO DAILY 10/26/20 [History] Acetaminophen 1,000 mg PO Q8H PRN #120 tab 10/27/20 [Rx] Metoprolol Succinate 50 mg PO BID #60 tab.er.24h 10/27/20 [Rx] Past Medical History HEENT History: Reports: Impaired Vision Cardiovascular History: Reports: Afib, High Cholesterol, Hypertension Respiratory History: Reports: Other (See Below) Other Respiratory History: nodule left lung Gastrointestinal History: Reports: GERD Genitourinary History: Reports: BPH, Renal Calculus Musculoskeletal History: Reports: Arthritis Neurological History: Reports: None Hematologic History: Reports: Anticoagulation Therapy, Blood Transfusion(s) Oncologic (Cancer) History: Reports: Other (See Below) Other Oncologic History: skin lesion removal - Past Surgical History HEENT Surgical History: Reports: Tonsillectomy Cardiovascular Surgical History: Reports: None GI Surgical History: Reports: Appendectomy, Colonoscopy Male Surgical History: Reports: None Musculoskeletal Surgical History: Reports: Hip Replacement - Past Imaging History Past Imaging History: Reports: CAT Scan, Xray Social & Family History - Family History Family Medical History: No Pertinent Family History - Tobacco Use Tobacco Use Status *Q: Former Tobacco User Used Tobacco, but Quit: Yes Month/Year Tobacco Last Used: 01/1975 Second Hand Smoke Exposure: No - Caffeine Use Caffeine Use: Reports: None Other Caffeine Use: decaf - Recreational Drug Use Recreational Drug Use: No ED ROS GENERAL - Review of Systems Review Of Systems: See Below Constitutional: Denies: Fever, Chills, Malaise, Weakness, Diaphoresis HEENT: Denies: Ear Pain, Throat Pain, Vision Change Respiratory: Denies: Shortness of Breath, Cough Cardiovascular: Reports: Lightheadedness. Denies: Chest Pain, Syncope GI/Abdominal: Denies: Abdominal Pain, Diarrhea, Vomiting : Denies: Dysuria Musculoskeletal: Denies: Neck Pain, Shoulder Pain, Arm Pain, Back Pain, Hand Pain Skin: Denies: Cyanosis, Jaundice, Mottled, Pallor, Diaphoresis Neurological: Denies: Confusion, Dizziness, Headache, Seizure, Syncope, Trouble Speaking, Difficulty Walking Psychiatric: Denies: Agitation, Anxiety, Confusion Hematologic/Lymphatic: Reports: Easy Bleeding (on Xarelto) ED EXAM, GENERAL - Physical Exam Exam: See Below Exam Limited By: No Limitations General Appearance: Alert, WD/WN, No Apparent Distress Eye Exam: Bilateral Eye: EOMI, Normal Inspection, PERRL Ears: Normal External Exam, Hearing Grossly Normal Nose: Normal Inspection, No Blood Throat/Mouth: Normal Inspection, Normal Lips, Normal Voice, No Airway Compromise Head: Atraumatic, Normocephalic Neck: Normal Inspection, Supple, Non-Tender, Full Range of Motion Respiratory/Chest: No Respiratory Distress, Lungs Clear, Normal Breath Sounds, No Accessory Muscle Use Cardiovascular: Normal Peripheral Pulses (strong but slow), No Edema, No Murmur, Bradycardia Peripheral Pulses: 3+: Radial (L), Radial (R), Posterior Tibial (L), Posterior Tibial (R) GI/Abdominal: Soft, Non-Tender, No Distention Back Exam: Normal Inspection, Full Range of Motion Extremities: Normal Inspection, Normal Range of Motion Neurological: Alert, Oriented, Normal Cognition, No Motor/Sensory Deficits Psychiatric: Normal Affect, Normal Mood Skin Exam: Warm, Dry, Intact, Normal Color, No Rash Course - Vital Signs Last Recorded V/S: Last Vital Signs Temp 97.3 F 01/25/21 21:25 Pulse 33 L 01/25/21 22:31 Resp 14 01/25/21 22:31 BP 149/48 H 01/25/21 22:31 Pulse Ox 97 01/25/21 22:31 - Orders/Labs/Meds Orders: Active Orders 24 hr Category Date Time Status EKG Documentation Completion [RC] ASDIRECTED Care 01/25/21 21:35 Ordered Sodium Chloride 0.9% [Normal Saline] 1,000 ml Med 01/25/21 22:45 Active IV ASDIRECTED EKG 12 Lead [EK] Stat Ther 01/25/21 21:34 Ordered Medication Orders Sodium Chloride (Normal Saline) 1,000 mls @ 150 mls/hr IV ASDIRECTED [facility] Last Admin: 01/25/21 22:41 Dose: 150 mls/hr Documented by: XENIA Labs: Laboratory Tests 01/25/21 01/25/21 Range/Units 21:30 21:30 WBC 9.95 (5.00-10.00) 10^3/uL RBC 4.88 (4.50-6.00) 10^6/uL Hgb 13.3 D (13.0-17.0) g/dL Hct 40.3 (40.0-52.0) % MCV 82.6 D (82.0-92.0) fL MCH 27.3 (27.0-31.0) pg MCHC 33.0 (32.0-36.0) g/dL RDW 15.8 H (11.5-14.5) % Plt Count 198 (150-400) 10^3/uL MPV 11.5 H (7.4-10.4) fL Immature Gran % (Auto) 0.1 (0.0-5.0) % Neut % (Auto) 62.3 (50.0-70.0) % Lymph % (Auto) 26.2 (20.0-40.0) % [place] % (Auto) 9.3 H (2.0-8.0) % Eos % (Auto) 1.7 (1.0-3.0) % Baso % (Auto) 0.4 (0.0-1.0) % Neut # (Auto) 6.19 (2.50-7.00) 10^3/uL Lymph # (Auto) 2.61 (1.00-4.00) 10^3/uL [place] # (Auto) 0.93 H (0.10-0.80) 10^3/uL Eos # (Auto) 0.17 (0.10-0.30) 10^3/uL Baso # (Auto) 0.04 (0.00-0.10) 10^3/uL Immature Gran # (Auto) 0.01 (0.00-0.50) 10^3/uL Sodium 144 (136-145) mmol/L Potassium 3.9 (3.5-5.1) mmol/L Chloride 108 H (98-107) mmol/L Carbon Dioxide 24.4 (21.0-32.0) mmol/L Anion Gap 15.5 H (5-15) mmol/L BUN 24 H (7-18) mg/dL Creatinine 1.21 H (0.51-1.17) mg/dL Est Cr Clr Drug Dosing 57.56 mL/min Estimated GFR (MDRD) 58 mL/min Glucose 128 (70-140) mg/dL Calcium 8.8 (8.7-10.3) mg/dL Meds: Medications Generic Name Dose Route Start Last Admin Trade Name Freq PRN Reason Stop Dose Admin Sodium Chloride 1,000 mls @ 150 mls/hr 01/25/21 22:45 01/25/21 22:41 Normal Saline IV 150 mls/hr ASDIRECTED [facility] Administration Discontinued Medications Generic Name Dose Route Start Last Admin Trade Name Freq PRN Reason Stop Dose Admin Atropine Sulfate 0.5 mg 01/25/21 21:47 01/25/21 21:57 Atropine 0.4 Mg/Ml Sdv IVPUSH 01/25/21 21:48 Not Given ONETIME ONE Atropine Sulfate 0.5 mg 01/25/21 21:51 01/25/21 21:53 Atropine 0.1 Mg/Ml 10 Ml Syringe IVPUSH 01/25/21 21:52 0.5 mg ONETIME ONE Administration Glucagon 1 mg 01/25/21 22:03 01/25/21 22:10 Glucagon,Human Recombinant 1 Mg Vial IVPUSH 01/25/21 22:04 1 mg ONETIME ONE Administration Glucagon 1 mg 01/25/21 22:39 01/25/21 22:31 Glucagon,Human Recombinant 1 Mg Vial IVPUSH 01/25/21 22:40 1 mg ONETIME ONE Administration Glucagon 1 mg 01/25/21 22:39 01/25/21 22:10 Glucagon,Human Recombinant 1 Mg Vial IVPUSH 01/25/21 22:40 1 mg ONETIME ONE Administration Sodium Chloride 1,000 mls @ 999 mls/hr 01/25/21 21:34 01/25/21 21:39 Normal Saline IV 01/25/21 22:34 999 mls/hr .BOLUS ONE Administration - Re-Assessments/Exams Free Text/Narrative Re-Assessment/Exam: 01/25/21 22:43 Discussed case with [facility] doctor and decided to consult cardiology. Tried atropine 0.5 mg IVP but no change. Discussed case with Dr. Fam, danielle at [facility]. He advised Glucagon 1 mg q5-10 minutes prn. He saw the EKG and thinks there is an underlying conduction problem that the metoprolol exacerbated. He says he will need to be monitored for 2 days minimum and may need a pacemaker placed. He wants him to come through ER for evaluation and we discussed case with ER provider there as well. Both doctors accepted for transfer. Our ALS crew is out from another transfer to [place] so I was considering flight transfer but Dr. Fam feels this is fairly stable at this point and waiting up to an hour for the ground transport is appropriate. I talked to Dr. Fam twice and in between had tried glucagon for two doses without any improvement. Patient is feeling fine while supine so was reluctant to go but I explained the possible heart conduction problem and that he needs to see a wardsperson for further evaluation and possible treatment of this. He agreed to go to [place]. Patient seems quite stable for bradycardia in low 30's at time of transfer. We only had to wait 20 minutes since one crew could leave with patient and meet the returning crew en route. 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 No ST elevations or depressions. Departure - Departure Time of Disposition: 22:42 Disposition: Home, Self-Care 01 Reason for Transfer *Q: Other Condition: Good Clinical Impression: Bradycardia, Lightheadedness Referrals: Imani Jack MD [Primary Care Provider] - Forms: ED Department Discharge Sepsis Event Note (ED) - Evaluation Sepsis Screening Result: No Definite Risk - Focused Exam Vital Signs: Vital Signs Temp Pulse Pulse Resp BP Pulse Ox 01/25/21 22:31 33 L 14 149/48 H 97 01/25/21 22:21 29 L 12 145/44 H 01/25/21 22:17 31 L 12 154/44 H 97 01/25/21 22:07 33 L 10 L 167/53 H 96 01/25/21 21:55 30 L 129/39 L 01/25/21 21:40 31 L 127/43 L 01/25/21 21:30 31 L 16 151/50 H 96 01/25/21 21:25 97.3 F 33 L 17 140/74 97 - My Orders Last 24 Hours: My Active Orders 01/25/21 21:34 EKG 12 Lead [EK] Stat 01/25/21 21:35 EKG Documentation Completion [RC] ASDIRECTED 01/25/21 22:45 Sodium Chloride 0.9% [Normal Saline] 1,000 ml IV ASDIRECTED - Assessment/Plan Last 24 Hours: My Active Orders 01/25/21 21:34 EKG 12 Lead [EK] Stat 01/25/21 21:35 EKG Documentation Completion [RC] ASDIRECTED 01/25/21 22:45 Sodium Chloride 0.9% [Normal Saline] 1,000 ml IV ASDIRECTED
[2021-01-25] MEDS ORDERED: Sodium Chloride 0.9% 1,000 ML IV SCH (22:45)
== END 2021-01-25 22:45 | disposition home or self-care (01) ==
LOC: KA.ED 21:25
DX: R00.1 Bradycardia, unspecified (principal); R42 Dizziness and giddiness; I48.91 Unspecified atrial fibrillation; E78.00 Pure hypercholesterolemia, unspecified; I10 Essential (primary) hypertension; N40.0 Benign prostatic hyperplasia without lower urinary tract symptoms; Z87.891 Personal history of nicotine dependence
CPT/HCPCS: 80048; 85025; 93005; 96374; 96375; 99284; J0461; J1610; J7030

== ENCOUNTER 2021-01-30 14:53 | Emergency (ER) | payer MEDICARE, OTHER ==
--- NOTE | 2021-01-30 15:03 | EDM.PDOC ---
ED HPI GENERAL MEDICAL PROBLEM - General Chief Complaint: Cardiovascular Problem Stated Complaint: NUMBNESS IN HAND Time Seen by Provider: 01/30/21 14:54 Source of Information: Reports: Patient - History of Present Illness INITIAL COMMENTS - FREE TEXT/NARRATIVE: Esequiel, 80-year-old male, presents with mild left chest wall incisional discomfort and right swan discomfort. He had a pacemaker placement to the left upper chest on 28 Jan 2021 at [facility]. At the same time removal of a temporary pacemaker from the right groin was done. He noted right swan pain with no calf pain ever since being in the hospital on the for the procedure. Stated significant swelling to the chest wall this morning upon awakening but has noted that is dissipated slightly but there is still tenderness. There is been no shortness of breath nor cardiac type chest discomfort. He denies fever chills or other contributing factors. Has been using sling limiting his abilities for use of the left arm since discharge after the procedure. Onset: Today Duration: Hour(s): Location: Reports: Chest, Upper Extremity, Left Right Lower Leg Pain Score (Numeric/FACES): 5 - Related Data Allergies Allergy/AdvReac Type Severity Reaction Status Date / Time No Known Drug Allergies Allergy Cannot Verified 01/30/21 15:33 Remember Home Meds: Home Meds Simvastatin [Zocor] 10 mg PO BEDTIME 01/05/17 [History] Rivaroxaban [Xarelto] 20 mg PO DAILY@1800 01/09/19 [History] Tamsulosin HCl [Flomax] 0.4 mg PO BEDTIME 01/09/19 [History] OLANZapine [Olanzapine] 5 mg PO BEDTIME 02/25/20 [History] Omeprazole 20 mg PO DAILY PRN 02/25/20 [History] polyethylene glycoL 3350 [MiraLAX] 17 gm PO DAILY PRN 03/03/20 [History] traZODone HCl [Trazodone HCl] 100 mg PO BEDTIME 03/03/20 [History] Calcium Carbonate [Tums] 1 tab PO QID PRN 10/26/20 [History] Sennosides/Docusate Sodium [Senna-S] 1 tab PO BEDTIME 10/26/20 [History] Vit A/Vit C/Vit E/Zinc/Copper [Preservision] 1 each PO DAILY 10/26/20 [History] Acetaminophen 1,000 mg PO Q8H PRN #120 tab 10/27/20 [Rx] Metoprolol Succinate 50 mg PO BID #60 tab.er.24h 10/27/20 [Rx] Fluticasone Propionate [Flonase] 1 spray NS DAILY PRN 01/30/21 [History] Simvastatin [Zocor] 40 mg PO BEDTIME 01/30/21 [History] Tamsulosin HCl [Flomax] 0.4 mg PO BEDTIME 01/30/21 [History] amLODIPine Besylate [Amlodipine Besylate] 5 mg PO DAILY 01/30/21 [History] Past Medical History HEENT History: Reports: Impaired Vision Cardiovascular History: Reports: Afib, High Cholesterol, Hypertension, Pacemaker Respiratory History: Reports: Other (See Below) Other Respiratory History: nodule left lung Gastrointestinal History: Reports: GERD Genitourinary History: Reports: BPH, Renal Calculus Musculoskeletal History: Reports: Arthritis Neurological History: Reports: None Hematologic History: Reports: Anticoagulation Therapy, Blood Transfusion(s) Oncologic (Cancer) History: Reports: Other (See Below) Other Oncologic History: skin lesion removal - Past Surgical History HEENT Surgical History: Reports: Tonsillectomy Cardiovascular Surgical History: Reports: None GI Surgical History: Reports: Appendectomy, Colonoscopy Male Surgical History: Reports: None Musculoskeletal Surgical History: Reports: Hip Replacement - Past Imaging History Past Imaging History: Reports: CAT Scan, Xray Social & Family History - Family History Family Medical History: No Pertinent Family History - Caffeine Use Caffeine Use: Reports: None Other Caffeine Use: decaf ED ROS GENERAL - Review of Systems Review Of Systems: Comprehensive ROS is negative, except as noted in HPI. ED EXAM, GENERAL - Physical Exam Exam: See Below Free Text/Narrative:: Alert, oriented with no evidence of cyanosis nor pallor. HEENT is negative discharge or deformity. There are pink moist mucous membranes. Neck is soft supple with no lymphadenopathy. Thorax is clear with no wheezes, no crackles are appreciated. Cardiac is S1-S2 regular rate which I do not appreciate any murmur. Abdomen is soft no flank pain. There is an incisional scar of significant age well-healed to his lumbar sacral region. Right inguinal area is faint tenderness which would be appreciated secondary removal of a temporary pacemaker with no erythema nor drainage. I do not appreciate any pseudoaneurysm nor tenderness to palpation.. There is tenderness to the right swan with no evidence of irritation or erythema. He states it feels like bone pain. Skin is warm and dry no edema dorsalis pedis is present. #1 Interpretation EKG Date: 01/30/21 Time: 15:12 Rhythm: Other (paced) Eucha: Other (paced) Comparison: Change From Previous EKG Course - Vital Signs Last Recorded V/S: Last Vital Signs Temp 98.2 F 01/30/21 14:58 Pulse 65 01/30/21 14:58 Resp 20 01/30/21 14:58 BP 122/58 L 01/30/21 14:58 Pulse Ox 96 01/30/21 14:58 - Orders/Labs/Meds Orders: Active Orders 24 hr Category Date Time Status EKG Documentation Completion [RC] ASDIRECTED Care 01/30/21 14:58 Active EKG 12 Lead [EK] Urgent Ther 01/30/21 14:54 Ordered Labs: Laboratory Tests 01/30/21 01/30/21 01/30/21 Range/Units 15:25 15:25 15:25 WBC 11.00 H (5.00-10.00) 10^3/uL RBC 5.30 (4.50-6.00) 10^6/uL Hgb 14.1 (13.0-17.0) g/dL Hct 44.0 (40.0-52.0) % MCV 83.0 (82.0-92.0) fL MCH 26.6 L (27.0-31.0) pg MCHC 32.0 (32.0-36.0) g/dL RDW 16.8 H (11.5-14.5) % Plt Count 183 (150-400) 10^3/uL MPV 11.7 H (7.4-10.4) fL Immature Gran % (Auto) 0.2 (0.0-5.0) % Neut % (Auto) 75.9 H (50.0-70.0) % Lymph % (Auto) 13.7 L (20.0-40.0) % Briscoe % (Auto) 9.0 H (2.0-8.0) % Eos % (Auto) 0.8 L (1.0-3.0) % Baso % (Auto) 0.4 (0.0-1.0) % Neut # (Auto) 8.35 H (2.50-7.00) 10^3/uL Lymph # (Auto) 1.51 (1.00-4.00) 10^3/uL Briscoe # (Auto) 0.99 H (0.10-0.80) 10^3/uL Eos # (Auto) 0.09 L (0.10-0.30) 10^3/uL Baso # (Auto) 0.04 (0.00-0.10) 10^3/uL Immature Gran # (Auto) 0.02 (0.00-0.50) 10^3/uL APTT 32.7 H (22.8-31.4) SEC Sodium 140 (136-145) mmol/L Potassium 4.7 (3.5-5.1) mmol/L Chloride 106 (98-107) mmol/L Carbon Dioxide 24.1 (21.0-32.0) mmol/L Anion Gap 14.6 (5-15) mmol/L BUN 38 H (7-18) mg/dL Creatinine 1.51 H (0.51-1.17) mg/dL Est Cr Clr Drug Dosing 46.12 mL/min Estimated GFR (MDRD) 45 mL/min Glucose 112 (70-140) mg/dL Calcium 8.9 (8.7-10.3) mg/dL Total Bilirubin 0.5 (0.2-1.0) mg/dL AST 24 (15-37) U/L ALT 24 (14-63) U/L Alkaline Phosphatase 103 (46-116) U/L Troponin I High Sens 31.200 (0-76.000) pg/mL Total Protein 6.9 (6.4-8.2) g/dL Albumin 3.42 (3.40-5.00) g/dL Departure - Departure Time of Disposition: 16:56 Disposition: Home, Self-Care 01 Condition: Good Clinical Impression: Pain in right swan, Renal insufficiency, mild, Status post cardiac pacemaker procedure Chest wall contusion Qualifiers: Encounter type: initial encounter - Discharge Information Referrals: Imani Jack MD [Primary Care Provider] - Forms: ED Department Discharge Additional Instructions: You need to drink more water to flush all of the contrast and medications from your system to promote good kidney health. The numbness tingling that you had experienced to your left arm and hand and fingers that has resolved, was likely due to the swelling around the surgical incision site from your pacemaker. This likely collected on the chest wall and into the armpit where the nerve bundle runs to your arm. Your right groin does not appear to have any concerns at this time from where the temporary pacemaker had been placed during her hospital stay. I do not see any abnormality on your swan x-ray today. Continue your medications as directed. Continue to use the sling and restrict your activity as instructed to you after your pacemaker was placed. In the event that the swan discomfort continues, contact your clinic for reevaluation of that. Maintain your restrictions as directed and follow-up as scheduled. Contact your clinic or return to the emergency department if significant concerns develop. Sepsis Event Note (ED) - Focused Exam Vital Signs: Vital Signs Temp Pulse Resp BP Pulse Ox 01/30/21 14:58 98.2 F 65 20 122/58 L 96 - Problem List & Annotations (1) Status post cardiac pacemaker procedure SNOMED Code(s): 725473669, 228874404, 512318222 Code(s): Z95.0 - PRESENCE OF CARDIAC PACEMAKER Status: Acute Priority: High Current Visit: Yes (2) Chest wall contusion SNOMED Code(s): 77101181 Code(s): S20.219A - CONTUSION OF UNSPECIFIED FRONT WALL OF THORAX, INIT ENCNTR Status: Acute Priority: Medium Current Visit: Yes Qualifiers: Encounter type: initial encounter (3) Arm paresthesia, left SNOMED Code(s): 79591175473401821 Code(s): R20.2 - PARESTHESIA OF SKIN Status: Resolved Priority: Medium Current Visit: Yes (4) Pain in right swan SNOMED Code(s): 022038023 Code(s): M79.661 - PAIN IN RIGHT LOWER LEG Status: Acute Priority: Medium Current Visit: Yes (5) Renal insufficiency, mild SNOMED Code(s): 989252576 Code(s): N28.9 - DISORDER OF KIDNEY AND URETER, UNSPECIFIED Status: Acute Priority: High Current Visit: Yes - Problem List Review Problem List Initiated/Reviewed/Updated: Yes - My Orders Last 24 Hours: My Active Orders 01/30/21 14:54 EKG 12 Lead [EK] Urgent 01/30/21 14:58 EKG Documentation Completion [RC] ASDIRECTED - Assessment/Plan Last 24 Hours: My Active Orders 01/30/21 14:54 EKG 12 Lead [EK] Urgent 01/30/21 14:58 EKG Documentation Completion [RC] ASDIRECTED Plan: You need to drink more water to flush all of the contrast and medications from your system to promote good kidney health. The numbness tingling that you had experienced to your left arm and hand and fingers that has resolved, was likely due to the swelling around the surgical incision site from your pacemaker. This likely collected on the chest wall and into the armpit where the nerve bundle runs to your arm. Your right groin does not appear to have any concerns at this time from where the temporary pacemaker had been placed during her hospital stay. I do not see any abnormality on your swan x-ray today. Continue your medications as directed. Continue to use the sling and restrict your activity as instructed to you after your pacemaker was placed. In the event that the swan discomfort continues, contact your clinic for reevaluation of that. Maintain your restrictions as directed and follow-up as scheduled. Contact your clinic or return to the emergency department if significant concerns develop.
[2021-01-30 15:04] VITALS: BP 122/58; PULSE 65
--- NOTE | 2021-01-30 15:30 | CR ---
[id number] RAD/RAD Chest PA And Lateral EXAM: RAD Chest PA And Lateral INDICATION: POST PACEMAKER PLACEMENT WITH SWELLING TO ARM. COMPARISON: October 26, 2020. DISCUSSION/IMPRESSION: Left chest wall cardiac conduction device has been placed since the prior examination. Otherwise, no significant change in appearance compared to the prior examination. No evidence of pneumonia. No pleural effusion or pneumothorax. Jim Meredith MD 01/30/21 [id number] Thank you for allowing us to participate in the care of your patient.
[2021-01-30 15:50] LABS: ANION GAP 14.6 mmol/L (5-15)
--- NOTE | 2021-01-30 16:47 | CR ---
[id number] RAD/RAD Tibia Fibula Right EXAM: RAD Tibia Fibula Right INDICATION: TIBIA PAIN ANTERIOR BONE PAIN . COMPARISON: March 03, 2020. DISCUSSION: Partially imaged right knee arthroplasty with unchanged appearance relative to the prior study. Mineralization in the expected location of the patellar tendon. No acute fracture or dislocation is identified. Arterial calcifications. IMPRESSION: 1. No acute findings. Gio Cano MD 01/30/21 [id number] Thank you for allowing us to participate in the care of your patient.
== END 2021-01-30 17:05 | disposition home or self-care (01) ==
LOC: KA.ED 14:53
DX: S20.212A Contusion of left front wall of thorax, initial encounter (principal); N28.9 Disorder of kidney and ureter, unspecified; M79.661 Pain in right lower leg; E78.00 Pure hypercholesterolemia, unspecified; I10 Essential (primary) hypertension; K21.9 Gastro-esophageal reflux disease without esophagitis; Z95.0 Presence of cardiac pacemaker; Z79.01 Long term (current) use of anticoagulants; Z79.899 Other long term (current) drug therapy; X58.XXXA Exposure to other specified factors, initial encounter
CPT/HCPCS: 36415; 71046; 73590-RT; 80053; 84484; 85025; 85730; 93005; 99284; 99284-25

== ENCOUNTER 2021-02-22 10:42 | Observation (INO) | payer MEDICARE, OTHER ==
[2021-02-22] MEDS ORDERED: Sodium Chloride 0.9% 10 ML Syringe FLUSH PRN (11:11)
--- NOTE | 2021-02-22 11:21 | EDM.PDOC ---
ED HPI GENERAL MEDICAL PROBLEM - General Chief Complaint: Chest Pain Stated Complaint: PALPITATIONS/DIZZINESS Time Seen by Provider: 02/22/21 11:00 Source of Information: Reports: Patient History Limitations: Reports: No Limitations - History of Present Illness INITIAL COMMENTS - FREE TEXT/NARRATIVE: 80 YO WF PRESENTS TO ER COMPLAINING OF FEELING LIGHTHEADED THIS AM. PT REPORTS HE WAS WALKING AROUND THE YARD WHEN HE FELT LIGHTHEADED WITH SOME PALPITATIONS AND MILD SHORTNESS OF BREATH. PT REPORTS HE FELT LIKE HE SHOULD GET CHECKED OUT SO HE CAME TO ER FOR EVALUATION. PT RECENTLY HAD A DUEL CHAMBER PACEMAKER PLACED IN TRENT DUE TO COMPLETE HEART BLOCK. PT WITH HISTORY OF PAROXYSMAL ATRIAL FIBRILLATION AND REPORTS HE HAS BEEN TAKING HIS METOPROLOL DIRECTED WITHOUT MISSING DOSES. PT IS ALSO TAKING HIS ELIQUIS WHICH WAS RESTARTED 01/30/2021. PT DENIES SYNCOPE, NO DIAPHORESIS, NO NAUSEA/VOMITING. PT REPORTS LAST NIGHT WHEN HE TURNED ON HIS LEFT SIDE HE FELT SOME DISCOMFORT OVER THE PACER BUT DENIES ANY CHEST PAIN. Onset: Today Location: Reports: Chest, Generalized Quality: Reports: Dull Severity: Mild Improves with: Reports: Rest Worsens with: Reports: Movement Context: Reports: Activity Associated Symptoms: Reports: No Other Symptoms, Shortness of Breath, Other (DIZZINESS). Denies: Confusion, Diaphoresis, Nausea/Vomiting, Syncope, Weakness - Related Data Allergies Allergy/AdvReac Type Severity Reaction Status Date / Time No Known Drug Allergies Allergy Cannot Verified 02/22/21 11:00 Remember Home Meds: Home Meds Simvastatin [Zocor] 10 mg PO BEDTIME 01/05/17 [History] Rivaroxaban [Xarelto] 20 mg PO DAILY@1800 01/09/19 [History] Tamsulosin HCl [Flomax] 0.4 mg PO BEDTIME 01/09/19 [History] OLANZapine [Olanzapine] 5 mg PO BEDTIME 02/25/20 [History] Omeprazole 20 mg PO DAILY PRN 02/25/20 [History] polyethylene glycoL 3350 [MiraLAX] 17 gm PO DAILY PRN 03/03/20 [History] traZODone HCl [Trazodone HCl] 100 mg PO BEDTIME 03/03/20 [History] Calcium Carbonate [Tums] 1 tab PO QID PRN 10/26/20 [History] Sennosides/Docusate Sodium [Senna-S] 1 tab PO BEDTIME 10/26/20 [History] Vit A/Vit C/Vit E/Zinc/Copper [Preservision] 1 each PO DAILY 10/26/20 [History] Acetaminophen 1,000 mg PO Q8H PRN #120 tab 10/27/20 [Rx] Metoprolol Succinate 50 mg PO BID #60 tab.er.24h 10/27/20 [Rx] Fluticasone Propionate [Flonase] 1 spray NS DAILY PRN 01/30/21 [History] Simvastatin [Zocor] 40 mg PO BEDTIME 01/30/21 [History] Tamsulosin HCl [Flomax] 0.4 mg PO BEDTIME 01/30/21 [History] amLODIPine Besylate [Amlodipine Besylate] 5 mg PO DAILY 01/30/21 [History] Past Medical History HEENT History: Reports: Impaired Vision Cardiovascular History: Reports: Afib, High Cholesterol, Hypertension, Pacemaker Respiratory History: Reports: Other (See Below) Other Respiratory History: nodule left lung Gastrointestinal History: Reports: GERD Genitourinary History: Reports: BPH, Renal Calculus Musculoskeletal History: Reports: Arthritis Neurological History: Reports: None Hematologic History: Reports: Anticoagulation Therapy, Blood Transfusion(s) Oncologic (Cancer) History: Reports: Other (See Below) Other Oncologic History: skin lesion removal - Infectious Disease History Infectious Disease History: Reports: Hepatitis B, Measles, Mumps - Past Surgical History HEENT Surgical History: Reports: Tonsillectomy Cardiovascular Surgical History: Reports: None Respiratory Surgical History: Reports: None GI Surgical History: Reports: Appendectomy, Colonoscopy Male Surgical History: Reports: None Musculoskeletal Surgical History: Reports: Hip Replacement Other Musculoskeletal Surgeries/Procedures:: bilateral hips. right knee - Past Imaging History Past Imaging History: Reports: CAT Scan, Xray Social & Family History - Family History Family Medical History: No Pertinent Family History - Tobacco Use Tobacco Use Status *Q: Never Tobacco User - Caffeine Use Caffeine Use: Reports: Tea Other Caffeine Use: decaf - Alcohol Use Days Per Week of Alcohol Use: 1 Number of Drinks Per Day: 2 Total Drinks Per Week: 2 - Recreational Drug Use Recreational Drug Use: No ED ROS GENERAL - Review of Systems Review Of Systems: See Below Constitutional: Reports: No Symptoms HEENT: Reports: No Symptoms Respiratory: Reports: Shortness of Breath Cardiovascular: Reports: Lightheadedness Endocrine: Reports: No Symptoms GI/Abdominal: Reports: No Symptoms : Reports: No Symptoms Musculoskeletal: Reports: No Symptoms Skin: Reports: No Symptoms Neurological: Reports: Dizziness Psychiatric: Reports: No Symptoms Hematologic/Lymphatic: Reports: No Symptoms ED EXAM, GENERAL - Physical Exam Exam: See Below Exam Limited By: No Limitations General Appearance: Alert, WD/WN, No Apparent Distress Head: Atraumatic, Normocephalic Neck: Normal Inspection, Supple, Non-Tender, Full Range of Motion Respiratory/Chest: No Respiratory Distress, Lungs Clear, Normal Breath Sounds, No Accessory Muscle Use, Chest Non-Tender Cardiovascular: Normal Peripheral Pulses, No Edema, No Gallop, No JVD, No Murmur, No Rub, Irregularly Irregular GI/Abdominal: Normal Bowel Sounds, Soft, Non-Tender, No Organomegaly, No Distention, No Abnormal Bruit, No Mass Back Exam: Normal Inspection, Full Range of Motion, NT Extremities: Normal Inspection, Normal Range of Motion, Non-Tender, Normal Capillary Refill, No Pedal Edema Neurological: Alert, Oriented, CN II-XII Intact, Normal Cognition, Normal Gait, Normal Reflexes, No Motor/Sensory Deficits Psychiatric: Normal Affect, Normal Mood Skin Exam: Warm, Dry, Intact, Normal Color, No Rash Lymphatic: No Adenopathy #1 Interpretation EKG Date: 02/22/21 Time: 10:49 Rhythm: A-Fib Rate (Beats/Min): 92 P-Wave: Absent QRS: RBBB ST-T: Normal QT: Normal Course - Vital Signs Last Recorded V/S: Last Vital Signs Temp 97.4 F 02/22/21 10:53 Pulse 85 02/22/21 10:53 Resp 16 02/22/21 10:53 BP 133/70 02/22/21 10:53 Pulse Ox 97 02/22/21 10:53 Orthostatic Blood Pressure [ 136/61 Standing] Orthostatic Blood Pressure [ 117/60 Sitting] Orthostatic Blood Pressure [ 123/67 Supine] - Orders/Labs/Meds Orders: Active Orders 24 hr Category Date Time Status Cardiac Monitoring [RC] . DIRECTED Care 02/22/21 11:11 Active EKG Documentation Completion [RC] ASDIRECTED Care 02/22/21 10:57 Active Orthostatic Vital Signs [RC] ASDIRECTED Care 02/22/21 11:11 Active Peripheral IV Care [RC] . DIRECTED Care 02/22/21 11:11 Active Sodium Chloride 0.9% [Saline Flush] Med 02/22/21 11:11 Active 10 ml FLUSH Q8HR PRN Peripheral IV Insertion Adult [OM.PC] Routine Oth 02/22/21 11:11 Ordered EKG 12 Lead [EK] Stat Ther 02/22/21 10:56 Ordered Medication Orders Sodium Chloride (Sodium Chloride 0.9% 10 Ml Syringe) 10 ml FLUSH Q8HR PRN PRN Reason: keep vein open Labs: Laboratory Tests 02/22/21 02/22/21 Range/Units 11:22 11:22 WBC 8.35 (5.00-10.00) 10^3/uL RBC 5.19 (4.50-6.00) 10^6/uL Hgb 14.2 (13.0-17.0) g/dL Hct 43.3 (40.0-52.0) % MCV 83.4 (82.0-92.0) fL MCH 27.4 (27.0-31.0) pg MCHC 32.8 (32.0-36.0) g/dL RDW 16.5 H (11.5-14.5) % Plt Count 193 (150-400) 10^3/uL MPV 12.2 H (7.4-10.4) fL Immature Gran % (Auto) 0.0 (0.0-5.0) % Neut % (Auto) 64.2 (50.0-70.0) % Lymph % (Auto) 24.8 (20.0-40.0) % Bullock % (Auto) 9.0 H (2.0-8.0) % Eos % (Auto) 1.4 (1.0-3.0) % Baso % (Auto) 0.6 (0.0-1.0) % Neut # (Auto) 5.36 (2.50-7.00) 10^3/uL Lymph # (Auto) 2.07 (1.00-4.00) 10^3/uL Bullock # (Auto) 0.75 (0.10-0.80) 10^3/uL Eos # (Auto) 0.12 (0.10-0.30) 10^3/uL Baso # (Auto) 0.05 (0.00-0.10) 10^3/uL Immature Gran # (Auto) 0.00 (0.00-0.50) 10^3/uL Sodium 143 (136-145) mmol/L Potassium 4.3 (3.5-5.1) mmol/L Chloride 108 H (98-107) mmol/L Carbon Dioxide 23.2 (21.0-32.0) mmol/L Anion Gap 16.1 H (5-15) mmol/L BUN 25 H (7-18) mg/dL Creatinine 1.14 (0.51-1.17) mg/dL Est Cr Clr Drug Dosing 61.09 mL/min Estimated GFR (MDRD) > 60 mL/min Glucose 141 H (70-140) mg/dL Calcium 8.3 L (8.7-10.3) mg/dL Total Bilirubin 0.5 (0.2-1.0) mg/dL AST 16 (15-37) U/L ALT 28 (14-63) U/L Alkaline Phosphatase 101 (46-116) U/L Creatine Kinase 128 (26-276) U/L CK-MB (CK-2) 2.67 (0.00-3.60) ng/mL Troponin I High Sens 12.900 (0-76.000) pg/mL B-Natriuretic Peptide 500 H (0-100) pg/mL Total Protein 6.3 L (6.4-8.2) g/dL Albumin 3.39 L (3.40-5.00) g/dL Meds: Medications Generic Name Dose Route Start Last Admin Trade Name Freq PRN Reason Stop Dose Admin Sodium Chloride 10 ml 02/22/21 11:11 Sodium Chloride 0.9% 10 Ml Syringe FLUSH Q8HR PRN keep vein open - Radiology Interpretation Free Text/Narrative:: CXR-NAD Departure - Departure Time of Disposition: 12:26 Disposition: Refer to Observation Condition: Good Clinical Impression: Near syncope Referrals: Imani Jack MD [Primary Care Provider] - Forms: ED Department Discharge Sepsis Event Note (ED) - Evaluation Sepsis Screening Result: No Definite Risk - Focused Exam Vital Signs: Vital Signs Temp Pulse Resp BP Pulse Ox 02/22/21 10:53 97.4 F 85 16 133/70 97 - My Orders Last 24 Hours: My Active Orders 02/22/21 10:56 EKG 12 Lead [EK] Stat 02/22/21 10:57 EKG Documentation Completion [RC] ASDIRECTED 02/22/21 11:11 Cardiac Monitoring [RC] . DIRECTED Orthostatic Vital Signs [RC] ASDIRECTED Peripheral IV Care [RC] . DIRECTED Sodium Chloride 0.9% [Saline Flush] 10 ml FLUSH Q8HR PRN Peripheral IV Insertion Adult [OM.PC] Routine - Assessment/Plan Last 24 Hours: My Active Orders 02/22/21 10:56 EKG 12 Lead [EK] Stat 02/22/21 10:57 EKG Documentation Completion [RC] ASDIRECTED 02/22/21 11:11 Cardiac Monitoring [RC] . DIRECTED Orthostatic Vital Signs [RC] ASDIRECTED Peripheral IV Care [RC] . DIRECTED Sodium Chloride 0.9% [Saline Flush] 10 ml FLUSH Q8HR PRN Peripheral IV Insertion Adult [OM.PC] Routine Assessment:: 1. NEAR SYNCOPE 2. ATRIAL FIBRILLATION 3. ELEVATED BNP Plan: 1. ADMIT TO MEDICINE-[facility] ACCEPTING AT 1215 2. CARDIAC MONITORING 3. CONSIDER ADJUSTMENT TO MEDICATIONS A FIB AND HR-80'S-100'S WHILE IN ER 4. ADDITIONAL ORDERS PER MEDICINE
--- NOTE | 2021-02-22 11:27 | CR ---
[id number] RAD/RAD Chest PA And Lateral EXAM: RAD Chest PA And Lateral INDICATION: CHEST PAIN. COMPARISON: January 30, 2021. DISCUSSION/IMPRESSION: Cardiomediastinal silhouette is normal in size and contour. Mild amount of bibasal scarring in the lungs. Finding is similar to the prior examination. No parenchymal consolidation. No pleural effusion or pneumothorax. Jim Meredith MD 02/22/21 1126 Thank you for allowing us to participate in the care of your patient.
[2021-02-22 12:00] LABS: CHLORIDE,CL 108 mmol/L (98-107); SODIUM,NA 143 mmol/L (136-145)
[2021-02-22 12:02] LABS: ANION GAP 16.1 mmol/L (5-15)
[2021-02-22] MEDS ORDERED: Acetaminophen 500 MG Tab PO PRN (13:09)
[2021-02-22] MEDS ORDERED: Calcium Carbonate 500 MG Tab.Chew PO PRN (13:10)
[2021-02-22] MEDS: amLODIPine 5 MG Tab PO SCH (15:24)
[2021-02-22] MEDS ORDERED: XARELTO 20 MG PO SCH (18:00)
[2021-02-22] MEDS ORDERED: ALPRAZolam 0.25 MG Tab PO ONE (18:06)
[2021-02-22] MEDS: METOPROLOL SUCCINATE 100 MG PO SCH (20:34)
[2021-02-22] MEDS ORDERED: OLANZAPINE 10 MG PO SCH (21:00)
[2021-02-22] MEDS ORDERED: Finasteride 5 MG Tab **PTOM PO SCH (21:00)
[2021-02-22] MEDS ORDERED: TRAZODONE HCL 100 MG PO SCH (21:00)
[2021-02-22] MEDS ORDERED: SIMVASTATIN 40 MG PO SCH (21:00)
[2021-02-22] MEDS ORDERED: Tamsulosin 0.4 MG Cap.ER **PTOM PO SCH (21:00)
[2021-02-23] MEDS: amLODIPine 5 MG Tab PO SCH (08:44)
[2021-02-23] MEDS: METOPROLOL SUCCINATE 100 MG PO SCH (08:50)
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
[2021-02-23] MEDS ORDERED: Metoprolol Succinate 25 MG Tab.ER PO ONE (11:20)
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
[2021-02-23 11:39] VITALS: BP 110/71
[2021-02-23 11:54] VITALS: PULSE 71
== END 2021-02-23 13:30 | disposition home or self-care (01) ==
LOC: KA.ED 10:42 → KA.MS 12:27
PROVIDERS: ADMIT Physician Assistant Medical; ATTEND Nurse Practitioner Family
DX: R42 Dizziness and giddiness (principal); R06.02 Shortness of breath; I48.0 Paroxysmal atrial fibrillation; I10 Essential (primary) hypertension; I70.0 Atherosclerosis of aorta; E78.5 Hyperlipidemia, unspecified; I35.1 Nonrheumatic aortic (valve) insufficiency; K21.9 Gastro-esophageal reflux disease without esophagitis; K59.00 Constipation, unspecified; N40.0 Benign prostatic hyperplasia without lower urinary tract symptoms; E66.3 Overweight; Z20.822 Contact with and (suspected) exposure to COVID-19; Z79.01 Long term (current) use of anticoagulants; Z95.0 Presence of cardiac pacemaker; Z79.899 Other long term (current) drug therapy; Z68.27 Body mass index [BMI] 27.0-27.9, adult
CPT/HCPCS: 71046; 80053; 82550; 82553; 83880; 84484; 85025; 99285; A9270; U0002; 93005; G0378

== ENCOUNTER 2021-08-12 08:05 | Day surgery (SDC) | payer MEDICARE, OTHER ==
[~2021-08-12 08:05] MED LIST: Lactated Ringers 1,000 ML IV SCH; Sodium Chloride 0.9% 10 ML Syringe FLUSH PRN
[2021-08-12] MEDS ORDERED: Propofol 200 MG/20 ML SDV ONE (09:09)
[2021-08-12] MEDS ORDERED: Midazolam 1 MG/ML 2 ML SDV ONE (09:09)
[2021-08-12 12:35] VITALS: BP 138/69; PULSE 66
--- NOTE | 2021-08-13 00:37 | PCM.PRNOTE ---
- Free Text/Narrative Note: PROCEDURE PERFORMED: Colonoscopy PRE-PROCEDURE DIAGNOSIS/INDICATION FOR PROCEDURE: Change in stool caliber; last colonoscopy 03/19/18 with sigmoid diverticulosis and no polyps CONSENT: Informed consent was obtained prior to the procedure after discussion of the risks (including pain, bleeding, infection, perforation, missed polyps, inability to completely remove polyps or complete procedure necessitating repeat colonoscopy, adverse reaction to anesthesia, cardiovascular event), benefits and alternatives and expected outcomes. The patient expressed understanding and wished to proceed. Verbal consent given and consent form signed. PROCEDURAL PAUSE: Completed SEDATION: Per anesthesia DESCRIPTION OF PROCEDURE: Patient was placed in the left lateral decubitus position. After adequate sedation and anesthetic was administered, a rectal exam was performed revealing no abnormalities. A lubricated Olympus Video Colonoscope was inserted into the rectum and air insufflation was performed. The colonoscope was advanced through the rectum, sigmoid, descending, transverse, and ascending colon without diffic ulties. The cecum was reached and the ileocecal valve as well as the appendiceal orifice were identified and pictorially documented. After adequate visualization of the cecum, the scope was withdrawn, giving 360-degree views of the colonic mucosa and retroflexion was performed in the rectum with the following findings noted: Ileocecal valve: Normal Cecum: Normal Ascending colon: Normal Hepatic flexure: Normal Transverse colon: Normal Splenic flexure: Normal Descending colon: Normal Sigmoid colon: Scattered small mouth diverticula Rectum: Mild internal hemorrhoids. The scope was straightened, air suction performed, and the scope withdrawn without complication. Preparation adequacy [place] Bowel Score 9/9. IMPRESSION: Colonoscopy performed revealing sigmoid diverticulosis and mild internal hemorrhoids. PLAN: Encourage adequate fiber diet and bowel regimen to ensure avoidance of constipation. No future screening colonoscopies indicated.
== END 2021-08-12 12:20 | disposition home or self-care (01) ==
LOC: KA.SDS 08:05
PROVIDERS: ATTEND Family Medicine
DX: K57.30 Diverticulosis of large intestine without perforation or abscess without bleeding (principal); K64.8 Other hemorrhoids; G47.00 Insomnia, unspecified; K12.0 Recurrent oral aphthae; I10 Essential (primary) hypertension; E78.00 Pure hypercholesterolemia, unspecified; E66.3 Overweight; N40.0 Benign prostatic hyperplasia without lower urinary tract symptoms; I48.91 Unspecified atrial fibrillation; F41.1 Generalized anxiety disorder; Z79.899 Other long term (current) drug therapy; Z68.30 Body mass index [BMI] 30.0-30.9, adult
CPT/HCPCS: 00812; 45378; J2250; J2704; J7120

== ENCOUNTER 2021-12-28 16:18 | Emergency (ER) | payer OTHER ==
[2021-12-28] MEDS ORDERED: Sodium Chloride 0.9% 10 ML Syringe FLUSH PRN (16:40)
[2021-12-28 17:15] LABS: ANION GAP 12.8 mmol/L (5-15); CHLORIDE,CL 107 mmol/L (98-107); SODIUM,NA 140 mmol/L (136-145)
[2021-12-28 17:32] LABS: PTT,PARTIAL THROMBOPLSTIN TIME 28.5 SEC (22.8-31.4)
[2021-12-28] MEDS: Sodium Chloride 0.9% 1,000 ML IV ONE (17:49)
[2021-12-28 17:50] VITALS: PULSE 60
[2021-12-28 18:25] LABS: RESPIRATORY SYNCYTIAL VIR NAA NEGATIVE (NEGATIVE)
[2021-12-28 18:27] LABS: CORONAVIRUS COVID-19 NAA NEGATIVE (NEGATIVE)
[2021-12-28 18:44] VITALS: BP 155/71
== END 2021-12-28 18:53 | disposition home or self-care (01) ==
LOC: KA.ED 16:18
DX: J06.9 Acute upper respiratory infection, unspecified (principal); I48.91 Unspecified atrial fibrillation; E78.00 Pure hypercholesterolemia, unspecified; I10 Essential (primary) hypertension; K21.9 Gastro-esophageal reflux disease without esophagitis; N40.0 Benign prostatic hyperplasia without lower urinary tract symptoms; Z95.0 Presence of cardiac pacemaker; Z79.899 Other long term (current) drug therapy; Z79.01 Long term (current) use of anticoagulants; Z87.891 Personal history of nicotine dependence; Z20.822 Contact with and (suspected) exposure to COVID-19
CPT/HCPCS: 0241U; 36415; 71046; 80053; 83880; 84484; 85025; 85610; 85730; 87070; 87205; 93005; 99284; 99284-25; J7030

== ENCOUNTER 2022-10-19 10:21 | Emergency (ER) | payer MEDICARE, OTHER ==
[2022-10-19 10:37] VITALS: BP 175/82; PULSE 79
== END 2022-10-19 12:00 | disposition home or self-care (01) ==
LOC: KA.ED 10:21
DX: R07.89 Other chest pain (principal); I48.91 Unspecified atrial fibrillation; E78.00 Pure hypercholesterolemia, unspecified; I10 Essential (primary) hypertension; K21.9 Gastro-esophageal reflux disease without esophagitis; N40.0 Benign prostatic hyperplasia without lower urinary tract symptoms; Z86.16 Personal history of COVID-19; Z95.0 Presence of cardiac pacemaker; Z79.899 Other long term (current) drug therapy
CPT/HCPCS: 36415; 71045; 80053; 84484; 85025; 93005; 93010; 99284; 99285

== ENCOUNTER 2024-02-13 14:30 | Emergency (ER) | payer MEDICARE, OTHER ==
[2024-02-13] MEDS: Sodium Chloride 0.9% 1,000 ML IV ONE (15:30)
[2024-02-13] MEDS: Meclizine 25 MG Tab PO ONE (15:38)
[2024-02-13] MEDS: Acetaminophen 500 MG Tab PO ONE (15:38)
[2024-02-13 15:43] LABS: BASOPHILS ABSOLUTE AUTO 0.04 10^3/uL (0.00-0.10); BASOPHILS PERCENT AUTO 0.5 % (0.0-1.0); EOSINOPHILS ABSOLUTE AUTO 0.11 10^3/uL (0.10-0.30); EOSINOPHILS PERCENT AUTO 1.3 % (1.0-3.0); HEMATOCRIT 35.6 % (40.0-52.0); HEMOGLOBIN 11.5 g/dL (13.0-17.0); IMMATURE GRAN ABSOLUTE AUTO 0.01 10^3/uL (0.00-0.50); IMMATURE GRAN PERCENT AUTO 0.1 % (0.0-5.0); LYMPHOCYTES ABSOLUTE AUTO 1.67 10^3/uL (1.00-4.00); MEAN CORPUSCULAR HEMOGLOBIN 27.1 pg (27.0-31.0); MEAN CORPUSCULAR HGB CONC 32.3 g/dL (32.0-36.0); MEAN CORPUSCULAR VOLUME 83.8 fL (82.0-92.0); MEAN PLATELET VOLUME 12.1 fL (7.4-10.4); MONOCYTES ABSOLUTE AUTO 0.73 10^3/uL (0.10-0.80); MONOCYTES PERCENT AUTO 8.8 % (2.0-8.0); NEUTROPHILS ABSOLUTE AUTO 5.77 10^3/uL (2.50-7.00); NEUTROPHILS PERCENT AUTO 69.3 % (50.0-70.0); PLATELET COUNT,PLT 216 10^3/uL (150-400); RED BLOOD CELL COUNT 4.25 10^6/uL (4.50-6.00); RED CELL DISTRIBUTION WIDTH 14.5 % (11.5-14.5); WHITE BLOOD CELL COUNT,WBC 8.33 10^3/uL (5.00-10.00)
[2024-02-13] MEDS: diphenhydrAMINE 50 MG/ML SDV IVPUSH ONE (15:46)
[2024-02-13 16:00] LABS: ANION GAP 13.2 mmol/L (5-15); B-TYPE NATRIURETIC PEPTIDE,BNP 152 pg/mL (0-100); BLOOD UREA NITROGEN,BUN 20 mg/dL (7-18); CALCIUM 8.7 mg/dL (8.7-10.3); CHLORIDE,CL 105 mmol/L (98-107); ESTIMATED GFR 60 mL/min (>=60); GLUCOSE RANDOM 130 mg/dL (70-140); POTASSIUM,K 4.2 mmol/L (3.5-5.1); SODIUM,NA 139 mmol/L (136-145)
[2024-02-13] MEDS: methylPREDNISolone Sodium Succinate 40 MG/1 ML SDV IVPUSH ONE (17:30)
[2024-02-13 18:34] VITALS: BP 163/67; PULSE 61
== END 2024-02-13 17:55 | disposition home or self-care (01) ==
LOC: KA.ED 14:30
DX: H81.391 Other peripheral vertigo, right ear (principal); I10 Essential (primary) hypertension; I48.91 Unspecified atrial fibrillation; E78.00 Pure hypercholesterolemia, unspecified; K21.9 Gastro-esophageal reflux disease without esophagitis; Z86.16 Personal history of COVID-19; Z95.0 Presence of cardiac pacemaker; Z79.899 Other long term (current) drug therapy; Z79.01 Long term (current) use of anticoagulants
CPT/HCPCS: 71045; 80048; 83880; 84484; 85025; 85730; 93005; 93010; 96361; 96374; 96375; 99284; 99285-25; A9270-GY; J1200; J2919; J7030

== ENCOUNTER 2024-04-10 12:55 | Emergency (ER) | payer MEDICARE, OTHER ==
[2024-04-10 13:09] LABS: BASOPHILS ABSOLUTE AUTO 0.03 10^3/uL (0.00-0.10); BASOPHILS PERCENT AUTO 0.4 % (0.0-1.0); EOSINOPHILS ABSOLUTE AUTO 0.07 10^3/uL (0.10-0.30); EOSINOPHILS PERCENT AUTO 0.9 % (1.0-3.0); HEMATOCRIT 40.4 % (40.0-52.0); HEMOGLOBIN 12.9 g/dL (13.0-17.0); IMMATURE GRAN ABSOLUTE AUTO 0.01 10^3/uL (0.00-0.50); IMMATURE GRAN PERCENT AUTO 0.1 % (0.0-5.0); LYMPHOCYTES ABSOLUTE AUTO 1.67 10^3/uL (1.00-4.00); LYMPHOCYTES PERCENT AUTO 20.4 % (20.0-40.0); MEAN CORPUSCULAR HEMOGLOBIN 26.2 pg (27.0-31.0); MEAN CORPUSCULAR HGB CONC 31.9 g/dL (32.0-36.0); MEAN CORPUSCULAR VOLUME 81.9 fL (82.0-92.0); MONOCYTES ABSOLUTE AUTO 0.61 10^3/uL (0.10-0.80); MONOCYTES PERCENT AUTO 7.5 % (2.0-8.0); NEUTROPHILS ABSOLUTE AUTO 5.78 10^3/uL (2.50-7.00); NEUTROPHILS PERCENT AUTO 70.7 % (50.0-70.0); PLATELET COUNT,PLT 218 10^3/uL (150-400); RED BLOOD CELL COUNT 4.93 10^6/uL (4.50-6.00); RED CELL DISTRIBUTION WIDTH 17.2 % (11.5-14.5); WHITE BLOOD CELL COUNT,WBC 8.17 10^3/uL (5.00-10.00)
[2024-04-10] MEDS: Sodium Chloride 0.9% 500 ML IV SCH ×2 (13:12→15:31)
[2024-04-10 13:30] LABS: ALBUMIN 3.52 g/dL (3.40-5.00); ANION GAP 11.4 mmol/L (5-15); BILIRUBIN TOTAL 0.5 mg/dL (0.2-1.0); CALCIUM 9.1 mg/dL (8.7-10.3); CARBON DIOXIDE,CO2 25.9 mmol/L (21.0-32.0); CREATININE 1.1 mg/dL (0.51-1.17); EST CRCL DRUG DOSING (CG) 60.2 mL/min; MAGNESIUM 2.3 mg/dL (1.8-2.4); POTASSIUM,K 4.3 mmol/L (3.5-5.1); PROTEIN TOTAL,TP 6.6 g/dL (6.4-8.2)
[2024-04-10] MEDS: Sodium Chloride 0.9% 500 ML ONE ×2 (15:31→15:45)
[2024-04-10] MEDS: Metoprolol Tartrate 5 MG/5 ML SDV IVPUSH ONE (15:45)
[2024-04-10] MEDS ORDERED: Metoprolol Tartrate 25 MG Tab ONE (15:55)
[2024-04-10] MEDS: Metoprolol Tartrate 25 MG Tab PO ONE (15:56)
[2024-04-10 17:10] VITALS: BP 136/65; PULSE 74
== END 2024-04-10 17:07 | disposition home or self-care (01) ==
LOC: KA.ED 12:55
DX: I48.91 Unspecified atrial fibrillation (principal); I48.92 Unspecified atrial flutter; E78.00 Pure hypercholesterolemia, unspecified; I10 Essential (primary) hypertension; K21.9 Gastro-esophageal reflux disease without esophagitis; Z86.16 Personal history of COVID-19; Z90.49 Acquired absence of other specified parts of digestive tract; Z79.899 Other long term (current) drug therapy
CPT/HCPCS: 36415; 71101-LT; 80053; 83735; 84484; 85025; 93010; 96361; 96374; 99284; 99284-25; A9270-GY; J3490; J7040; Q3014

== ENCOUNTER 2024-04-11 09:01 | Emergency (ER) | payer MEDICARE, OTHER ==
[2024-04-11] MEDS: Nitroglycerin 0.4 MG Tab.SL ONE (09:37)
[2024-04-11] MEDS: Nitroglycerin 0.4 MG Tab.SL SL PRN (09:37)
[2024-04-11 09:40] LABS: BASOPHILS ABSOLUTE AUTO 0.04 10^3/uL (0.00-0.10); BASOPHILS PERCENT AUTO 0.4 % (0.0-1.0); EOSINOPHILS ABSOLUTE AUTO 0.12 10^3/uL (0.10-0.30); EOSINOPHILS PERCENT AUTO 1.3 % (1.0-3.0); HEMOGLOBIN 13.1 g/dL (13.0-17.0); IMMATURE GRAN ABSOLUTE AUTO 0.01 10^3/uL (0.00-0.50); IMMATURE GRAN PERCENT AUTO 0.1 % (0.0-5.0); LYMPHOCYTES ABSOLUTE AUTO 1.79 10^3/uL (1.00-4.00); LYMPHOCYTES PERCENT AUTO 20.1 % (20.0-40.0); MEAN CORPUSCULAR HEMOGLOBIN 26.1 pg (27.0-31.0); MEAN CORPUSCULAR VOLUME 81.7 fL (82.0-92.0); MEAN PLATELET VOLUME 11.9 fL (7.4-10.4); MONOCYTES ABSOLUTE AUTO 0.66 10^3/uL (0.10-0.80); MONOCYTES PERCENT AUTO 7.4 % (2.0-8.0); NEUTROPHILS ABSOLUTE AUTO 6.29 10^3/uL (2.50-7.00); NEUTROPHILS PERCENT AUTO 70.7 % (50.0-70.0); PLATELET COUNT,PLT 233 10^3/uL (150-400); RED BLOOD CELL COUNT 5.02 10^6/uL (4.50-6.00); WHITE BLOOD CELL COUNT,WBC 8.91 10^3/uL (5.00-10.00)
[2024-04-11 09:42] LABS: ALBUMIN 3.25 g/dL (3.40-5.00); ANION GAP 12.7 mmol/L (5-15); BILIRUBIN TOTAL 0.5 mg/dL (0.2-1.0); CALCIUM 8.9 mg/dL (8.7-10.3); CARBON DIOXIDE,CO2 24.2 mmol/L (21.0-32.0); CREATININE 1.07 mg/dL (0.51-1.17); EST CRCL DRUG DOSING (CG) 61.88 mL/min; POTASSIUM,K 3.9 mmol/L (3.5-5.1); PROTEIN TOTAL,TP 6.3 g/dL (6.4-8.2)
[2024-04-11] MEDS: Sodium Chloride 0.9% 1,000 ML IV ONE (09:47)
[2024-04-11 11:28] VITALS: BP 125/73
[2024-04-11] MEDS: Metoprolol Tartrate 25 MG Tab PO ONE (12:04)
[2024-04-11 12:07] VITALS: PULSE 114
== END 2024-04-11 12:35 | disposition home or self-care (01) ==
LOC: KA.ED 09:01
DX: I48.91 Unspecified atrial fibrillation (principal); I10 Essential (primary) hypertension; K21.9 Gastro-esophageal reflux disease without esophagitis; E78.00 Pure hypercholesterolemia, unspecified; Z79.899 Other long term (current) drug therapy; Z86.16 Personal history of COVID-19; Z90.49 Acquired absence of other specified parts of digestive tract
CPT/HCPCS: 36415; 80053; 84484; 85025; 85379; 93010; 96360; 99284; 99285-25; A9270-GY; J7030

== ENCOUNTER 2024-10-08 14:53 | Emergency (ER) | payer MEDICARE, OTHER ==
[2024-10-08] MEDS: Acetaminophen 500 MG Tab PO ONE (15:26)
[2024-10-08] MEDS: Cyclobenzaprine 5 MG Tab PO ONE (15:26)
[2024-10-08 15:35] LABS: BASOPHILS ABSOLUTE AUTO 0.03 10^3/uL (0.00-0.10); BASOPHILS PERCENT AUTO 0.3 % (0.0-1.0); EOSINOPHILS ABSOLUTE AUTO 0.01 10^3/uL (0.10-0.30); EOSINOPHILS PERCENT AUTO 0.1 % (1.0-3.0); HEMATOCRIT 41.4 % (40.0-52.0); HEMOGLOBIN 13.6 g/dL (13.0-17.0); IMMATURE GRAN ABSOLUTE AUTO 0.03 10^3/uL (0.00-0.04); IMMATURE GRAN PERCENT AUTO 0.3 % (0.0-0.4); LYMPHOCYTES PERCENT AUTO 12.4 % (20.0-40.0); MEAN CORPUSCULAR HEMOGLOBIN 28.2 pg (27.0-31.0); MEAN CORPUSCULAR HGB CONC 32.9 g/dL (32.0-36.0); MEAN CORPUSCULAR VOLUME 85.7 fL (82.0-92.0); MEAN PLATELET VOLUME 11.6 fL (7.4-10.4); MONOCYTES ABSOLUTE AUTO 0.56 10^3/uL (0.10-0.80); MONOCYTES PERCENT AUTO 5.4 % (2.0-8.0); NEUTROPHILS ABSOLUTE AUTO 8.53 10^3/uL (2.50-7.00); NEUTROPHILS PERCENT AUTO 81.5 % (50.0-70.0); PLATELET COUNT,PLT 244 10^3/uL (150-400); RED BLOOD CELL COUNT 4.83 10^6/uL (4.50-6.00); RED CELL DISTRIBUTION WIDTH 15.6 % (11.5-14.5); WHITE BLOOD CELL COUNT,WBC 10.46 10^3/uL (5.00-10.00)
[2024-10-08 15:50] LABS: ALANINE AMINOTRANSFERASE,ALT 49 U/L (14-63); ALBUMIN 3.55 g/dL (3.40-5.00); ALKALINE PHOSPHATASE 104 U/L (46-116); ANION GAP 14.1 mmol/L (5-15); ASPARTATE AMNIOTRANSFERASE,AST 27 U/L (15-37); BILIRUBIN TOTAL 0.3 mg/dL (0.2-1.0); BLOOD UREA NITROGEN,BUN 22 mg/dL (7-18); CALCIUM 8.9 mg/dL (8.7-10.3); CARBON DIOXIDE,CO2 26.5 mmol/L (21.0-32.0); CHLORIDE,CL 107 mmol/L (98-107); CREATININE 1.07 mg/dL (0.51-1.17); EST CRCL DRUG DOSING (CG) 61.88 mL/min; GLUCOSE RANDOM 153 mg/dL (70-140); POTASSIUM,K 4.6 mmol/L (3.5-5.1); PROTEIN TOTAL,TP 6.3 g/dL (6.4-8.2); SODIUM,NA 143 mmol/L (136-145)
[2024-10-08 15:51] LABS: C-REACTIVE PROTEIN < 0.50 mg/dL (0.00-0.50); ESTIMATED GFR 69 mL/min (>=60)
[2024-10-08 16:31] VITALS: BP 137/71; PULSE 60
[2024-10-08] MEDS: Cyclobenzaprine 5 MG Tab PO PRN (16:52)
== END 2024-10-08 17:00 | disposition home or self-care (01) ==
LOC: KA.ED 14:53
DX: M47.9 Spondylosis, unspecified (principal); I10 Essential (primary) hypertension; K21.9 Gastro-esophageal reflux disease without esophagitis; E78.00 Pure hypercholesterolemia, unspecified; Z79.899 Other long term (current) drug therapy; Z86.16 Personal history of COVID-19; Z87.891 Personal history of nicotine dependence; Z90.49 Acquired absence of other specified parts of digestive tract
CPT/HCPCS: 36415; 70450; 72125; 80053; 85025; 86140; 99284; A9270

== ENCOUNTER 2025-07-15 13:55 | Emergency (ER) | payer OTHER, MEDICARE ==
[2025-07-15 18:30] VITALS: BP 127/48; PULSE 62
== END 2025-07-15 15:04 | disposition home or self-care (01) ==
LOC: KA.ED 13:55
DX: R06.02 Shortness of breath (principal); I10 Essential (primary) hypertension; I48.91 Unspecified atrial fibrillation; E78.00 Pure hypercholesterolemia, unspecified; K21.9 Gastro-esophageal reflux disease without esophagitis; M19.90 Unspecified osteoarthritis, unspecified site; Z79.899 Other long term (current) drug therapy; Z90.49 Acquired absence of other specified parts of digestive tract; Z95.0 Presence of cardiac pacemaker; Z86.16 Personal history of COVID-19; V89.2XXA Person injured in unspecified motor-vehicle accident, traffic, initial encounter
CPT/HCPCS: 99283